=== PATIENT | female | born 1945 | race Caucasian/White ===

== ENCOUNTER 2019-03-13 17:37 | Inpatient (IN) | payer MEDICARE, OTHER, BC, SELFPAY ==
[2019-03-13 17:56] VITALS: BP 139/64; PULSE 66; RESP 14; TEMP 36.7; O2SAT 99
[2019-03-13 18:43] LABS: Abs Immature Grans 0.02 k/cumm (0.0-0.09); Absolute Basophil Count 0.03 k/cumm (0.0-0.2); Absolute Eosinophil Count 0.24 k/cumm (0.0-0.7); Absolute Lymphocyte Count 1.36 k/cumm (1.2-3.4); Absolute Monocyte Count 1.26 k/cumm (0.11-0.7); Absolute Neutrophil Count 6.94 k/cumm (1.2-6.7); Basophils % 0.3; Eosinophils % 2.4; HCT 32.4 % (36.0-46.0); HGB 10.9 g/dL (12.0-15.5); Immature Grans % 0.2; Lymphocytes % 13.8; Mean Corp. HGB Concentration 33.6 g/dL (32.0-36.0); Mean Corpuscular Hemoglobin 28.2 pg (27.0-33.0); Mean Corpuscular Volume 83.9 fL (80-95); Mean Platelet Volume 10.9 fL (8.0-11.0); Monocytes % 12.8; Neutrophils % 70.5; Platelet Count 217 x1000/uL (130-400); RBC 3.86 m/cumm (4.00-5.20); RBC Distribution Width 14.1 % (11.7-14.6); White Blood Cell Count 9.85 k/cumm (4.4-10.8)
[2019-03-13 18:50] VITALS: RESP 16
[2019-03-13 18:54] LABS: Bilirubin Negative (Negative); Blood Small (Negative); Clarity Clear (Clear); Glucose Negative (Negative); Ketones Negative (Negative); Leukocyte Esterase Negative (Negative); Nitrite Negative (Negative); Specific Gravity 1.015 (1.005-1.025); Urobilinogen 0.2 EU/dL (Up TO 0.2); pH 5.5 (5-8)
[2019-03-13] MEDS: Normal Saline 1,000 ML 150 ML IV (18:55)
[2019-03-13 19:03] LABS: Bacteria Moderate HPF (Negative); Crystals Negative HPF (Negative); Epithelial Cells Few HPF (Negative); Other Cells Negative (Negative)
[2019-03-13 19:04] LABS: C & S Indicated? Yes; Casts Negative LPF (Negative); Mucus Negative (Negative)
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
--- NOTE | 2019-03-13 19:39 | DI.CT_ITS ---
EXAM: CT HEAD WO CLINICAL HISTORY: altered mentation TECHNIQUE: The exam was performed according to the usual protocol without contrast. COMPARISON: No exams were available for comparison FINDINGS: There is an old infarct in the left parietal lobe as well as in the right occipital lobe. An addition al small area of encephalomalacia is seen in the high right frontal region. No acute infarct, acute h emorrhage or mass is seen. The ventricles are normal in size. There is no evidence of skull fracture. Hyperostosis frontalis interna is incidentally noted. The sinuses and mastoid air cells appear clear where visualized. IMPRESSION: Old left parietal, right occipital and right frontal infarcts. No acute abnormality.
[2019-03-13] MEDS: Cephalexin 500 MG CAP PO (19:43)
--- NOTE | 2019-03-13 19:54 | DI.VRAD_ITS ---
PROCEDURE INFORMATION: Exam: CT Head Without Contrast Exam date and time: 03/13/2019 6:30 PM Clinical history: 74 years old, female; Altered mental status/memory loss; Confusion or disorientation TECHNIQUE: Imaging protocol: Computed tomography of the head without contrast. Radiation optimization: All CT scans at this facility use at least one of these dose optimization techniques: automated exposure control; mA and/or kV adjustment per patient size (includes targeted exams where dose is matched to clinical indication); or iterative reconstruction. COMPARISON: No relevant prior studies available. FINDINGS: Brain: There is no acute intracranial hemorrhage, mass effect or midline shift. No large acute territorial infarct identified. There are patchy regions of hypodensity in the periventricular and subcortical white matter, likely on the basis of chronic microvascular ischemic disease. Multifocal encephalomalacia seen in the left greater than right frontoparietal lesions, left temporal and right occipital lobes, which may be secondary to remote infarcts. Ventricles: The ventricles and sulci are prominent in size, which is likely related to global cerebral volume loss. Bones/joints: Unremarkable. No acute fracture. Sinuses: Visualized sinuses are unremarkable. No fluid levels. Mastoid air cells: Visualized mastoid air cells are well aerated. Soft tissues: Unremarkable. Vasculature: There are extensive atherosclerotic calcifications at the bilateral carotid siphons. IMPRESSION: No acute intracranial hemorrhage, mass effect or midline shift. Dictated and Authenticated by: Em Cortés MD. Ordering:LISA Phillips MD
[2019-03-13 21:14] LABS: ALT 19 U/L (14-59); AST 13 U/L (15-37); Albumin 2.9 g/dL (3.4-5.0); Alkaline Phosphatase 62 U/L (46-116); Anion Gap 14.2 mmol/L (3-11); BUN 60 mg/dL (7-18); Bilirubin, Total 0.2 mg/dL (0.2-1.0); CO2 17.8 mmol/L (21.0-32.0); Calcium 8.9 mg/dL (8.5-10.1); Chloride 107 mmol/L (98-107); Estimated GFR 12.44 (mL/min/1.73m2); Glucose 112 mg/dL (70-100); Magnesium 1.6 mg/dL (1.8-2.4); Potassium 3.7 mmol/L (3.5-5.1); Sodium 139 mmol/L (136-145); TSH (W/Ref FT4) 5.04 uIU/mL (0.36-3.74); Total Protein 7.2 g/dL (6.4-8.2)
[2019-03-13 21:20] LABS: CREATININE 3.58 mg/dL (0.55-1.02)
[2019-03-13 21:36] LABS: FREE T4 1.12 ng/dL (0.76-1.46)
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
[2019-03-13 23:03] VITALS: BP 149/65; PULSE 62; O2SAT 100
[2019-03-14 00:20] VITALS: BP 159/80; PULSE 71; RESP 16; TEMP 36.4; O2SAT 97
[2019-03-14] MEDS: Normal Saline Flush 10 ML SYR IVP (00:59)
[2019-03-14] MEDS: Normal Saline 1,000 ML 150 ML IV ×2 (01:00→07:42)
[2019-03-14] MEDS: cefTRIAXone 1,000 MG in Normal Saline 50 ML 100 MG IVPB (01:00)
--- NOTE | 2019-03-14 07:00 | DI.US_ITS ---
EXAM: US RENAL CLINICAL HISTORY: CLAUDIA TECHNIQUE: Ultrasound performed using standard protocol. COMPARISON: No exams were available for comparison FINDINGS: The exam is somewhat limited by the patients inability to breath hold or cooperate with the exam. T he urinary bladder is distended with a prevoid volume of 806 cc. The patient refused to void. No bl adder mass is identified. There is bilateral moderate to severe hydronephrosis. No stones are visib le. The right kidney measures 11.6 cm in length. The left kidney measures 10.5 cm in length. IMPRESSION: Distended urinary bladder. Bilateral moderate to severe hydronephrosis.
[2019-03-14 07:29] LABS: Abs Immature Grans 0.02 k/cumm (0.0-0.09); Absolute Basophil Count 0.02 k/cumm (0.0-0.2); Absolute Eosinophil Count 0.32 k/cumm (0.0-0.7); Absolute Lymphocyte Count 1.29 k/cumm (1.2-3.4); Absolute Monocyte Count 1.32 k/cumm (0.11-0.7); Absolute Neutrophil Count 5.04 k/cumm (1.2-6.7); Basophils % 0.2; HGB 9.8 g/dL (12.0-15.5); Immature Grans % 0.2; Lymphocytes % 16.1; Mean Corp. HGB Concentration 32.7 g/dL (32.0-36.0); Mean Corpuscular Hemoglobin 27.7 pg (27.0-33.0); Mean Corpuscular Volume 84.7 fL (80-95); Mean Platelet Volume 11.4 fL (8.0-11.0); Monocytes % 16.5; Platelet Count 216 x1000/uL (130-400); RBC 3.54 m/cumm (4.00-5.20); RBC Distribution Width 14.3 % (11.7-14.6); White Blood Cell Count 8.01 k/cumm (4.4-10.8)
[2019-03-14 07:34] VITALS: BP 118/70; PULSE 59; RESP 20; TEMP 36.8; O2SAT 99
[2019-03-14 07:47] LABS: Anion Gap 14.4 mmol/L (3-11); BUN 52 mg/dL (7-18); CO2 16.6 mmol/L (21.0-32.0); CREATININE 3.41 mg/dL (0.55-1.02); Calcium 8.3 mg/dL (8.5-10.1); Chloride 109 mmol/L (98-107); Estimated GFR 13.16 (mL/min/1.73m2); Glucose 90 mg/dL (70-100); Potassium 3.7 mmol/L (3.5-5.1); Sodium 140 mmol/L (136-145)
[2019-03-14] MEDS: Levothyroxine 100 MCG TAB PO (08:30)
[2019-03-14 09:21] LABS: Magnesium 1.4 mg/dL (1.8-2.4)
[2019-03-14] MEDS: MAGNESIUM SULFATE 4 GM/100 ML BAG IVPB (10:03)
[2019-03-14 10:39] LABS: Creatine Kinase 114 U/L (26-192)
--- NOTE | 2019-03-14 12:28 | W.PM.PROGNOT ---
Date of Service Date of service: 03/14/19 Time of Service: 12:28 Assessment and Plan Assessment and plan (1) Acute kidney injury (nontraumatic): Status: Acute Assessment and plan: Vs CKD. Obtaining medical records from PCP to look at prior labs. For now, continue IVF, await US kidneys, check bladder scans. CPK ok. (2) UTI (urinary tract infection): Status: Ruled-out Assessment and plan: The patient does not have leuk. esterase or nitrites in her UA, so there does not appear to be a lower UTI - however; I would continue antibiotics until we have excluded obstructive uropathy/nephrolithiasis - US kidneys pending. Qualifiers: Urinary tract infection type: site unspecified (3) Hypothyroid: Status: Chronic Assessment and plan: It is not clear exactly how much of the synthroid the patient was taking at home. Per family, she is supposed to be 100 mcg PO daily. We will continue this dose - TSH will need to be rechecked in 4-6 weeks. Qualifiers: Hypothyroidism type: acquired Qualified Code(s): E03.9 - Hypothyroidism, unspecified (4) Dementia: Status: Chronic Assessment and plan: No unsafe behaviors observed so far. Will monitor for sundowning. Will require a capacity evaluation and guardianship, per my conversation with care management. Consult palliative care for goals of care discussion. Qualifiers: Dementia type: unspecified type Dementia behavioral disturbance: with behavioral disturbance Qualified Code(s): F03.91 - Unspecified dementia with behavioral disturbance (5) History of diabetes mellitus: Status: Chronic Assessment and plan: BG 90 on this am's labs. Check A1C. (6) DVT prophylaxis: Status: Acute Assessment and plan: SC heparin (7) Discharge planning issues: Status: Acute Assessment and plan: Family verbalizes that they are interested in subacute rehab for the patient. PT/OT consults placed. Will need capacity evaluation formally if guardianship is pursued - it is my impression that she does not have capacity to make medical or disposition decisions at this time. Palliative care consulted for goals of care discussion - listed as full code at this time. Subjective Subjective Interval history since last seen: Ms Marin knows her name, but cannot tell me where she is right now. She selectively answers questions, but not following my commands when I ask her to take a deep breath, for example. She cannot tell me if she is in pain. She is hungry. She states she wants to go home. Per family, she used to receive care at Dr Rama Mckay in [facility]. The phone number there is [phone]. Apparently, they are closed today, but would be open tomorrow. Per family, she has not seen a doctor probably in 3-5 years. She used to take metformin, but has not been - the patient's other son in [place] stopped giving her medications. It appears that perhaps her and her daughter in law in [place] were sharing a prescription for synthroid, but no one knows how much she actually took. Exam Narrative Exam Narrative: General: very frail elderly female, pleasantly confused, selectively answers questions, not able to follow simple commands, A&Ox1 HEENT: EOMI, dry MM Heart: RRR with an occasional extra beat Lungs: CTAB GI: abdomen is soft, nontender, nondistended Extremities: no e/c/c BLE's Objective Objective Clinical Data: Abnormal lab results 03/13/19 03/13/19 03/13/19 Range/Units 18:37 18:46 20:50 RBC 3.86 L (4.00-5.20) m/cumm Hgb 10.9 L (12.0-15.5) g/dL Hct 32.4 L (36.0-46.0) % MPV (8.0-11.0) fL Absolute Neutrophils 6.94 H (1.2-6.7) k/cumm Absolute Monocytes 1.26 H (0.11-0.7) k/cumm Chloride (98-107) mmol/L Carbon Dioxide 17.8 L (21.0-32.0) mmol/L Anion Gap 14.2 H (3-11) mmol/L BUN 60 H (7-18) mg/dL Creatinine 3.58 H* (0.55-1.02) mg/dL Glucose 112 H (70-100) mg/dL Calcium (8.5-10.1) mg/dL Magnesium 1.6 L (1.8-2.4) mg/dL AST 13 L (15-37) U/L Albumin 2.9 L (3.4-5.0) g/dL TSH 5.04 H (0.36-3.74) uIU/mL Urine Protein 30 H (Negative) mg/dL Urine Blood Small H (Negative) Urine RBC 5-10 H (0-2) 03/14/19 03/14/19 03/14/19 Range/Units 06:30 06:30 06:30 RBC 3.54 L (4.00-5.20) m/cumm Hgb 9.8 L (12.0-15.5) g/dL Hct 30.0 L (36.0-46.0) % MPV 11.4 H (8.0-11.0) fL Absolute Neutrophils (1.2-6.7) k/cumm Absolute Monocytes 1.32 H (0.11-0.7) k/cumm Chloride 109 H (98-107) mmol/L Carbon Dioxide 16.6 L (21.0-32.0) mmol/L Anion Gap 14.4 H (3-11) mmol/L BUN 52 H (7-18) mg/dL Creatinine 3.41 H (0.55-1.02) mg/dL Glucose (70-100) mg/dL Calcium 8.3 L (8.5-10.1) mg/dL Magnesium 1.4 L (1.8-2.4) mg/dL AST (15-37) U/L Albumin (3.4-5.0) g/dL TSH (0.36-3.74) uIU/mL Urine Protein (Negative) mg/dL Urine Blood (Negative) Urine RBC (0-2) Vital Signs Temperature 36.8 C 03/14/19 07:34 Temperature Source Tympanic 03/14/19 07:34 Pulse 59 L 03/14/19 07:34 Pulse Rhythm Irregular 03/14/19 00:20 Respiratory Rate 20 03/14/19 07:34 Respiratory Effort 03/14/19 00:20 Respiratory Depth Normal 03/14/19 00:20 Respiratory Pattern Normal 03/14/19 00:20 Blood Pressure 118/70 03/14/19 07:34 Blood Pressure Mean 93 03/13/19 23:03 Blood Pressure Position Sitting 03/13/19 17:56 Pulse Oximetry 99 03/14/19 07:34 Oxygen Delivery Method Room Air 03/14/19 07:34 Oxygen Flow Rate 0 03/14/19 07:34 Pain Level 0 03/14/19 07:34 Comment 03/14/19 07:34 Intake & Output 03/13/19 03/14/19 03/14/19 23:59 11:59 23:59 Intake Total 1000 / 1000 Output Total 10 200 / 200 Balance -10 -10 800 / 800 Weight 46.6 kg Intake: IV 1000 / 1000 Oral 0 / 0 Output: Urine 200 / 200 Other: Urine Color Yellow Yellow Urine Appearance Clear Cloudy Urine Odor Normal Comment 200CC VOID BSC AND INCONTINENT OF LARGE AMT ALSO. INCONTINENT CARE PROVIDED. Voiding Methods Bedside Commode Incontinent Laboratory Results WBC 8.01 k/cumm (4.4-10.8) 03/14/19 06:30 RBC 3.54 m/cumm (4.00-5.20) L 03/14/19 06:30 Hgb 9.8 g/dL (12.0-15.5) L 03/14/19 06:30 Hct 30.0 % (36.0-46.0) L 03/14/19 06:30 MCV 84.7 fL (80-95) 03/14/19 06:30 MCH 27.7 pg (27.0-33.0) 03/14/19 06:30 MCHC 32.7 g/dL (32.0-36.0) 03/14/19 06:30 RDW 14.3 % (11.7-14.6) 03/14/19 06:30 Plt Count 216 x1000/uL (130-400) 03/14/19 06:30 MPV 11.4 fL (8.0-11.0) H 03/14/19 06:30 Immature Gran % 0.2 03/14/19 06:30 Neutrophils % 63.0 03/14/19 06:30 Lymphocytes % 16.1 03/14/19 06:30 Monocytes % 16.5 03/14/19 06:30 Eosinophils % 4.0 03/14/19 06:30 Basophils % 0.2 03/14/19 06:30 Absolute Neutrophils 5.04 k/cumm (1.2-6.7) 03/14/19 06:30 Absolute Lymphocytes 1.29 k/cumm (1.2-3.4) 03/14/19 06:30 Absolute Monocytes 1.32 k/cumm (0.11-0.7) H 03/14/19 06:30 Absolute Eosinophils 0.32 k/cumm (0.0-0.7) 03/14/19 06:30 Absolute Basophils 0.02 k/cumm (0.0-0.2) 03/14/19 06:30 Sodium 140 mmol/L (136-145) 03/14/19 06:30 Potassium 3.7 mmol/L (3.5-5.1) 03/14/19 06:30 Chloride 109 mmol/L (98-107) H 03/14/19 06:30 Carbon Dioxide 16.6 mmol/L (21.0-32.0) L 03/14/19 06:30 Anion Gap 14.4 mmol/L (3-11) H 03/14/19 06:30 BUN 52 mg/dL (7-18) H 03/14/19 06:30 Creatinine 3.41 mg/dL (0.55-1.02) H 03/14/19 06:30 Estimated GFR/1.73 m2 13.16 (mL/min/1.73m2) 03/14/19 06:30 Glucose 90 mg/dL (70-100) 03/14/19 06:30 Calcium 8.3 mg/dL (8.5-10.1) L 03/14/19 06:30 Magnesium 1.4 mg/dL (1.8-2.4) L 03/14/19 06:30 Total Bilirubin 0.2 mg/dL (0.2-1.0) 03/13/19 20:50 AST 13 U/L (15-37) L 03/13/19 20:50 ALT 19 U/L (14-59) 03/13/19 20:50 Alkaline Phosphatase 62 U/L (46-116) 03/13/19 20:50 Creatine Kinase 114 U/L (26-192) 03/14/19 06:30 Total Protein 7.2 g/dL (6.4-8.2) 03/13/19 20:50 Albumin 2.9 g/dL (3.4-5.0) L 03/13/19 20:50 TSH 5.04 uIU/mL (0.36-3.74) H 03/13/19 20:50 Free T4 1.12 ng/dL (0.76-1.46) 03/13/19 20:50 Urine Color Yellow (Yellow) 03/13/19 18:46 Urine Clarity Clear (Clear) 03/13/19 18:46 Urine pH 5.5 (5-8) 03/13/19 18:46 Ur Specific [place] 1.015 (1.005-1.025) 03/13/19 18:46 Urine Protein 30 mg/dL (Negative) H 03/13/19 18:46 Urine Ketones Negative mg/dL (Negative) 03/13/19 18:46 Urine Blood Small (Negative) H 03/13/19 18:46 Urine Nitrite Negative (Negative) 03/13/19 18:46 Urine Bilirubin Negative (Negative) 03/13/19 18:46 Urine Urobilinogen 0.2 EU/dL (Up TO 0.2) 03/13/19 18:46 Ur Leukocyte Esterase Negative (Negative) 03/13/19 18:46 Urine RBC 5-10 (0-2) H 03/13/19 18:46 Urine WBC 10-20 HPF (0-5) 03/13/19 18:46 Ur Epithelial Cells Few HPF (Negative) 03/13/19 18:46 Urine Crystals Negative HPF (Negative) 03/13/19 18:46 Urine Bacteria Moderate HPF (Negative) 03/13/19 18:46 Urine Casts Negative LPF (Negative) 03/13/19 18:46 Urine Mucus Negative (Negative) 03/13/19 18:46 Urine Other Negative (Negative) 03/13/19 18:46 Ur Culture Indicated? Yes 03/13/19 18:46 Urine Glucose Negative mg/dL (Negative) 03/13/19 18:46 US renal done; read pending
[2019-03-14 13:12] LABS: Hemoglobin A1C 5.6 % (4.5-6.2)
--- NOTE | 2019-03-14 15:27 | PT.INNT ---
Date of service: 03/14/19 Time of Service: 15:04 PT Notes Patient is a 74-year-old female referred to physical therapy on 03/14/2019 at 12:36 PM for limited ability. JOHN/smiley JOSEPH was present in the room when this PT arrived. An evaluation was attempted. Patient was unable to follow simple commands and was responding inappropriately to questions. She repetitively replied I am fine, thank you to all the questions asked of her. To attempt a quick mobility assessment, a strategy of having patient transfer to the wheelchair so that her bed can be fixed was done. Patent was unrelenting despite several tries, stating that she is so tired and again added I am fine, thank you. Another evaluation will be attempted tomorrow morning as patient hopefully will clear up more. Thank you very much for this referral. Catia Copeland PT, DPT, CLT [facility]
[2019-03-14 15:48] VITALS: BP 146/57; PULSE 54; RESP 17; TEMP 36.8; O2SAT 100
--- NOTE | 2019-03-14 17:58 | INITIAL_ITS ---
- If Service Date Differs Date of service: 03/14/19 Time of Service: 17:58 Care Management Initial Assess REASON FOR HOSPITALIZATION:: dementia PAST MEDICAL HISTORY/PAST SURGICAL HISTORY:: Medical History (Updated 03/14/19 @ 07:53 by Nj Daniels). Dementia (Suspected). History of colon cancer (Acute). s/p partial colectomy and reversal of colostomy; no chemotherapy. Hypothyroid (Chronic). Surgical History (Updated 03/13/19 @ 22:30 by Nj marroquin). H/O colectomy (Resolved) PREVIOUS FUNCTIONAL STATUS/SOCIAL/FAMILY SUPPORTS:: Meghan previously lived with a son in [place]. Due to family issues, she is no longer able to remain there in her home. Another son, Param, brought her back to [place]. Meghan needs constant supervision which the family cannot provide, so she was brought to the hospital. Physically she is able to ambulate and feed herself but needs direction.They are seeking palcement in a [facility] continuous [facility] care facility. CURRENT FUNCTIONAL STATUS:: Meghan was sitting on the side of her bed eating lunch during CM visit. She was non-verbal while CM visited with her son Param and his Vy. They shared that they are unable to care for her since they both work. She owns a home in [place] and receives Social Security but they are unsure if she has additional funds. Her only insurance is Medicare. Has patient been provided with information about the portal?: No Did the patient sign up for the portal?: No CODE STATUS:: Full Code INSURANCE COVERAGE / FINANCIAL ISSUES:: Medicare. BC BS PRIMARY CARE PHYSICIAN:: none POTENTIAL DISCHARGE NEEDS:: [facility] term placement or 24/7 caregivers PATIENT/FAMILY EDUCATION NEEDS:: discharge plan, limitations Ask Me Three ANTICIPATED BARRIERS TO DISCHARGE:: no payer source for placement TRANSPORTATION:: to be determined by discharge plan PLAN:: Meghan will likely need [facility] continuous [facility] placement or 24/7 caregivers. Final discharge plan to be determined. CM will continue to support patient, family and discharge planning considerations.
[2019-03-14 20:15] VITALS: BP 130/68; PULSE 74; RESP 17; TEMP 36.8; O2SAT 100
[2019-03-15] VITALS: BP 120/63; PULSE 76; RESP 16; TEMP 37.7; O2SAT 99
[2019-03-15 04:05] VITALS: BP 118/63; PULSE 72; RESP 17; TEMP 36.8; O2SAT 99
[2019-03-15] MEDS: Normal Saline 1,000 ML 100 ML IV ×2 (04:51→14:15)
[2019-03-15] MEDS: Levothyroxine 100 MCG TAB PO (06:29)
[2019-03-15 06:58] LABS: Abs Immature Grans 0.01 k/cumm (0.0-0.09); Absolute Basophil Count 0.03 k/cumm (0.0-0.2); Absolute Eosinophil Count 0.38 k/cumm (0.0-0.7); Absolute Lymphocyte Count 1.17 k/cumm (1.2-3.4); Absolute Monocyte Count 0.82 k/cumm (0.11-0.7); Absolute Neutrophil Count 3.89 k/cumm (1.2-6.7); Basophils % 0.5; HCT 26.6 % (36.0-46.0); HGB 8.6 g/dL (12.0-15.5); Immature Grans % 0.2; Lymphocytes % 18.6; Mean Corp. HGB Concentration 32.3 g/dL (32.0-36.0); Mean Corpuscular Hemoglobin 27.5 pg (27.0-33.0); Mean Platelet Volume 10.9 fL (8.0-11.0); Neutrophils % 61.7; Platelet Count 196 x1000/uL (130-400); RBC 3.13 m/cumm (4.00-5.20); RBC Distribution Width 14.2 % (11.7-14.6)
[2019-03-15 07:21] LABS: Anion Gap 12.7 mmol/L (3-11); BUN 49 mg/dL (7-18); CO2 15.3 mmol/L (21.0-32.0); CREATININE 3.01 mg/dL (0.55-1.02); Calcium 7.8 mg/dL (8.5-10.1); Chloride 111 mmol/L (98-107); Ferritin 77 ng/mL (8-388); Glucose 98 mg/dL (70-100); Magnesium 2.2 mg/dL (1.8-2.4); Potassium 3.8 mmol/L (3.5-5.1); Sodium 139 mmol/L (136-145)
[2019-03-15 07:27] LABS: Iron 29 ug/dL (50-175); Total Iron Binding Capacity 181 ug/dL (250-450); Transferrin Sat 16 % (15-50)
[2019-03-15 07:31] LABS: Diff Comment RBC Morph Reviewed; RBC Morphology Normal
[2019-03-15 07:54] LABS: Folate 3.2 ng/mL (8.6-20.0); Vitamin B12 258 pg/mL (193-986)
[2019-03-15 08:00] VITALS: BP 107/63; PULSE 73; RESP 18; TEMP 37.2; O2SAT 96
--- NOTE | 2019-03-15 08:15 | PHARADMIT ---
Admission Pharmacy Clinical Review UTI, Acute Kidney Injury Code Status Full Code Current Weight Wgt-45.7 kg Renally Cleared and Narrow Therapeutic Index Meds CrCl~11.8 mL/min Meds-OK QTc Value / Action Taken NA BP Control, Fever BP- 118/63 Tmax- 36.8C Electrolytes reviewed Na-139 K+3.8 Mag-2.2 DVT Prophylaxis Heparin-SC Opiate Usage / Scheduled Bowel Regimen Ordered No Yes Plt/SCr for Heparin / Enoxaparin Plts-196 SCr-3.01 INR for Warfarin NA H/H stable, WBC/Bands H&H- 8.6/26.6 WBC-6.30 Antibiotic appropriateness NONE Cultures and Sensitivities URINE-ENTEROCOCCUS Surgical ABX d/c within 24 hr NA DM control / Insulin Dosing BG-98 NnL7w-0.6% Heart Failure (Check EF%) (ANA's, B-Block, Diuretics) none IV to PO Switch No Home Meds Reviewed Yes Home Meds Not Ordered Loperamide Comments
--- NOTE | 2019-03-15 09:42 | NUR.NOTE ---
Nursing Note: Coban wrapped around IV site in Left AC. Pt's left hand and wrist is significantly swollen. Coban removed, site wrapped loosely w/gauze to prevent Pt from pulling out IV. will continue to monitor.
[2019-03-15 11:15] VITALS: BP 106/55; PULSE 70; RESP 20; TEMP 37; O2SAT 99
[2019-03-15] MEDS: Folic Acid 1 MG TAB PO (11:56)
--- NOTE | 2019-03-15 12:29 | PT.INIE ---
Date of service: 03/15/19 Time of Service: 10:39 PT Notes Physical Therapy Inpatient Evaluation Date: 03/15/2019 Referring Doctor: Jamaica Rolon MD PT Orders: PT CONSULT: Limited ability Precautions: Fall. Standard. Activity as tolerated. Patient Profile/Admitting Diagnosis: Patient is a 74-year old female referred for physical therapy for limited ability. Patient is diagnosed with dementia, urinary tract infection, and acute kidney injury. PMHX: Medical History (Updated 03/14/19 @ 07:53 by Nj Daniels) Dementia (Suspected) History of colon cancer (Acute) s/p partial colectomy and reversal of colostomy; no chemotherapy Hypothyroid (Chronic) Surgical History (Updated 03/13/19 @ 22:30 by Nj Daniels) H/O colectomy (Resolved) Social History/Home Situation: Unable to extract any information from patient due to dementia. Equipment Owned/DME: Unable to extract any information from patient due to dementia. Subjective: I am fine, thank you. I am tired, I want to rest. Refuses to wear slipper socks despite attempts at trying out all the different colors. Objective: General Observation: Patient sitter 10 present during this attempt and evaluation. Patient is unable to follow simple instructions PT. Significantly confused. Perseverated on mismatched socks throughout evalaution attempt. Mental Status: Alert but is not oriented to time, place, person, purpose. States that she does not know if she has kids when asked about it. She does answer when her name is called. Pain: No verbal/bodily expression of pain troughout evalaution attempt. ROM: Unable to formally assess. Grossly WFL. Strength: Unable to formally assess. Grossly WFL. Bed Mobility/Transfers: Rolling minimal assist Supine to sit minimal assist Sit to supine minimal assist Sit to stand minimal assist Stand to sit minimal assist Bed to chair minimal assist Chair to bed minimal assist Gait: Patient only tolerated two small steps and two step backs to transfer from bedside to chair with maximum verbal cueing and reassuarance that she will be put back to bed as soon as soiled sheets are changed. Balance: Static Sitting: Good Dynamic Sitting: Good Static Standing: Fair Dynamic Standing: Fair Special Tests: Mobility Limitations Standardized Measure [facility]-P[facility] 6 clicks Basic Mobility Inpatient Short Form: Raw Score: 18 CMS Score: 47% deficit Informed Consent/Education: Unable to understand rationale for PT consult and treatment. Assessment: Patient is a 74-year old female referred for physical therapy for limited ability. Patient is diagnosed with dementia, urinary tract infection, and acute kidney injury. Patient is not able to to follow simple instructions and is not motivated to do anything at this time. She is most content at lying down on her bed as she persistently indicated that she has been so tired. Patient is not appropriate for skilled physical therapy services at this time and will require 24/7 supervision for safety or will strongly benefit from long-term placement in a usp facility. Patient presents with clinical signs and symptoms consistent with current/admitting diagnoses that have resulted to mobility limitations, gait instability, generalized weakness, and impairment of motor control as demonstrated by the following impairment level findings: 1. Significant confusion due to dementia 2.Impaired sitting/standing balance 3. Impaired activity tolerance Impairments are contributing to the following functional limitations: 1. Dependent bed mobility skills 2. Increased dependence with transfers 3. Inability to safely ambulate without assistive device and physical assistance 4. Increase completion time for mobility ADL performance 5. Increased fall risk Patient is assessed as a 26773 moderate complexity based on the following: History: Patient is a 74-year old female referred for physical therapy for limited ability. Patient is diagnosed with dementia, urinary tract infection, and acute kidney injury. Examination: Demonstrable impairment in strength, balance, and range of motion with underlying impairments and functional limitations as documented above Presentation:Evolving Decision Makin moderate complexity Goals: N/A. Patient is evaluation only. Plan of Care/Treatment Plan: N/A. Patient is evaluation only. DISCHARGE RECOMMENDATIONS: 24/7 supervision or SNF LTC placement. TREATMENT CODE/TIME: 58890 x 26 minutes beginning at 10:39 AM. Thank you very much for this referral. Catia Copeland PT, DPT, CLT [facility]
--- NOTE | 2019-03-15 15:18 | PDOC.CMPRO ---
Care Management Progress Note S/O: Meghan was sitting up in her recliner. Currently on Contact precautions while awaiting results from C-Diff test. Confused and frequently bursting into tears. Has a 1:1 Patient Observer with her at all times. Son, Param, came in to visit. Rama Escobedo is headed to [place] to turkey picker some things from Meghan's home. Confirmed that the daily care needed by Meghan is more than they can provide at home. Requesting assistance with Custodial placement. Contacted the daughter, Meghan Adams ([phone]), who is the DPOA and handles all of her mother's finances. She emailed a copy of the documents which have been sent to medical records to be scanned. She brandon only been relocated to [place] for a month. Will need to apply for extermination inspector medicaid. Meghan Adams said she would start to gather her mother's financial information and have it ready when applications need to be completed. Son, Gael, remains in the [place] home which is still owned by Meghan. A: 74 y.o. female admitted for UTI, CLAUDIA remains at an acute level of care today. P: Meghan will need placement of some type as she cannot be managed at Param's home. Family will rquire assistance with al of the necessary forms.
[2019-03-15 15:30] VITALS: BP 122/68; PULSE 69; RESP 18; TEMP 36.8; O2SAT 99
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
[2019-03-15] MEDS: Nystatin POWDER 15 GM JAR TP (19:26)
[2019-03-15] MEDS: Docusate Sodium 100 MG CAP PO (19:26)
[2019-03-15] MEDS: Senna TAB 1 TAB PO (19:26)
[2019-03-15 19:30] VITALS: BP 153/73; PULSE 72; RESP 18; TEMP 36.7; O2SAT 100
[2019-03-16] MEDS: Normal Saline 1,000 ML 100 ML IV (00:40)
[2019-03-16] MEDS: Levothyroxine 100 MCG TAB PO (06:10)
[2019-03-16 07:46] LABS: Abs Immature Grans 0.02 k/cumm (0.0-0.09); Absolute Basophil Count 0.02 k/cumm (0.0-0.2); Absolute Eosinophil Count 0.32 k/cumm (0.0-0.7); Absolute Lymphocyte Count 1.26 k/cumm (1.2-3.4); Absolute Monocyte Count 0.86 k/cumm (0.11-0.7); Absolute Neutrophil Count 3.11 k/cumm (1.2-6.7); Basophils % 0.4; Eosinophils % 5.7; Immature Grans % 0.4; Lymphocytes % 22.5; Mean Corp. HGB Concentration 32.8 g/dL (32.0-36.0); Mean Corpuscular Hemoglobin 27.8 pg (27.0-33.0); Mean Corpuscular Volume 84.8 fL (80-95); Mean Platelet Volume 11.2 fL (8.0-11.0); Monocytes % 15.4; Neutrophils % 55.6; Platelet Count 182 x1000/uL (130-400); RBC 3.42 m/cumm (4.00-5.20); RBC Distribution Width 14.2 % (11.7-14.6); White Blood Cell Count 5.59 k/cumm (4.4-10.8)
[2019-03-16 07:51] LABS: HGB 9.5 g/dL (12.0-15.5)
[2019-03-16 07:52] LABS: Anion Gap 12.4 mmol/L (3-11); BUN 42 mg/dL (7-18); CO2 15.6 mmol/L (21.0-32.0); CREATININE 2.72 mg/dL (0.55-1.02); Chloride 113 mmol/L (98-107); Estimated GFR 17.08 (mL/min/1.73m2); Glucose 127 mg/dL (70-100); Magnesium 1.7 mg/dL (1.8-2.4); Potassium 4.1 mmol/L (3.5-5.1); Sodium 141 mmol/L (136-145)
[2019-03-16 08:31] VITALS: BP 154/72; PULSE 69; RESP 18; TEMP 36.1; O2SAT 98
[2019-03-16] MEDS: Folic Acid 1 MG TAB PO (10:43)
[2019-03-16] MEDS: Aspirin 81 MG CHEW PO (10:43)
[2019-03-16] MEDS: Pantoprazole 40 MG TABCR PO (10:43)
[2019-03-16] MEDS: Nystatin POWDER 15 GM JAR TP ×2 (10:43→19:40)
[2019-03-16] MEDS: Magnesium Oxide 400 MG TAB 800 MG PO (10:43)
[2019-03-16 12:10] VITALS: BP 144/70; PULSE 75; RESP 16; TEMP 36.5; O2SAT 100
[2019-03-16] MEDS: Normal Saline 1,000 ML 75 ML IV (12:19)
[2019-03-16 16:14] VITALS: BP 146/69; PULSE 73; RESP 18; TEMP 36.6; O2SAT 100
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
--- NOTE | 2019-03-16 18:32 | CMPROGNOTE_ITS ---
Care Management Progress Note S/O: Meghan was sitting up in her recliner eating her dinner. No longer on Contact precautions. C-Diff test was Negative. Confused but was not as tearful today, Has a 1:1 Patient Observer with her at all times. Son, Param, came in to visit. Meghan's daily care needs are greater than what can be provided at Param's home. Requesting assistance with Machine Assembler Supervisor placement. Daughter, Meghan Adams ([phone]), is the DPOA and handles all of her mother's finances is aware of the situation and ready to assist with information needed as we start to fill out applications. Will need to apply for [place] [facility] medicaid. A: 74 y.o. female admitted for UTI, CLAUDIA remains at an acute level of care today. P: Meghan will need placement of some type as she cannot be managed at Param's home. Family will require assistance with all of the necessary forms to apply for medicaid and seek LTC placement and/or other resource options.
[2019-03-16] MEDS: Atorvastatin 40 MG TAB PO (19:40)
[2019-03-16] MEDS: Loperamide 2 MG CAP PO (19:40)
[2019-03-16 20:07] VITALS: BP 164/63; PULSE 63; RESP 18; TEMP 36.4; O2SAT 100
[2019-03-16] MEDS: QUEtiapine 25 MG TAB PO (20:15)
[2019-03-17 06:00] VITALS: BP 154/70; PULSE 65; RESP 16; TEMP 36.6; O2SAT 99
[2019-03-17] MEDS: Levothyroxine 100 MCG TAB PO (06:17)
[2019-03-17 07:15] VITALS: BP 147/68; PULSE 63; RESP 17; TEMP 36.6; O2SAT 97
[2019-03-17 07:32] LABS: Abs Immature Grans 0.02 k/cumm (0.0-0.09); Absolute Basophil Count 0.03 k/cumm (0.0-0.2); Absolute Monocyte Count 0.79 k/cumm (0.11-0.7); Absolute Neutrophil Count 2.29 k/cumm (1.2-6.7); Basophils % 0.6; Eosinophils % 5.6; HCT 30.6 % (36.0-46.0); HGB 9.8 g/dL (12.0-15.5); Immature Grans % 0.4; Lymphocytes % 35.6; Mean Corpuscular Hemoglobin 27.5 pg (27.0-33.0); Mean Platelet Volume 10.9 fL (8.0-11.0); Monocytes % 14.8; Platelet Count 231 x1000/uL (130-400); RBC 3.56 m/cumm (4.00-5.20); RBC Distribution Width 14.6 % (11.7-14.6); White Blood Cell Count 5.33 k/cumm (4.4-10.8)
[2019-03-17 07:55] LABS: BUN 36 mg/dL (7-18); CREATININE 2.54 mg/dL (0.55-1.02); Calcium 8.4 mg/dL (8.5-10.1); Chloride 115 mmol/L (98-107); Estimated GFR 18.48 (mL/min/1.73m2); Glucose 99 mg/dL (70-100); Magnesium 1.6 mg/dL (1.8-2.4); Potassium 4.4 mmol/L (3.5-5.1); Sodium 144 mmol/L (136-145)
--- NOTE | 2019-03-17 08:53 | OTIE_ITS ---
Occupational Therapy Notes Inpatient Occupational Therapy Evaluation Date: 03/17/19 Referring Doctor:Jamaica Rolon MD OT Orders: Non-urgent: Limited Ability Precautions: Fall, Standard PATIENT PROFILE/ADMITTING DIAGNOSIS: Pt is a 74 year old female who was admitted through the ER on 03/13/19 for a dx of CLAUDIA, dehydration, UTI and dementia. Past Medical History: Medical History (Updated 03/14/19 @ 07:53 by Nj Daniels) Dementia (Suspected) History of colon cancer (Acute) s/p partial colectomy and reversal of colostomy; no chemotherapy Hypothyroid (Chronic) Surgical History (Updated 03/13/19 @ 22:30 by Nj Daniels) H/O colectomy (Resolved) Social History/Home Situation: Pt is unable to speak to her current living situation. Equipment owned/DME: Unable to assess as pt is unable to speak to this. SUBJECTIVE: Pt was sitting on side of the bed when OT arrived eating her breakfast. She reports multiple times throughout session I'm fine. OBJECTIVE: General Observation: Ramsay, pt is very confused and unable to answer with more than 5 word sentences. She is alert and can make eye contact. Mental Status: Alert to name Pain: no c/o pain ROM: RUE AROM limited to 75* although it is unclear as to whether pt can achieve more because she denies. Elbow, wrist and hands WNL L UE AROM limited to 80* although it is unclear as to whether pt can achieve more because she denies. Elbow, wrist and hands WNL STRENGTH: RUE Ring Rolling Machine Operator strength is weak-pt is unable to adequately test other areas of strength LUE Ring Rolling Machine Operator strength is weak, bicep 2+/5, tricep 3/5, unable to assess shoulder flexion *Pt is (R) hand dominant. FUNCTIONAL MOBILITY/ADLS: BATHING Sitting on side of the bed with max (A) set and max vc Bathing UE (I) with face and hands Bathing LE able to wash top of feet however it is with gentle touch and pt states she is all set. DRESSING - Pt becomes angry when presented with socks and refers to her socks as trash and ugly. This is clearly upsetting to pt and she becomes angry and states I'm fine get out. GROOMING Pt denies TOILETING Pt denies EATING (I) sitting on side of bed BALANCE: Static sitting Normal Dynamic Sitting Normal SPECIAL TESTS: Daily Activity Limitations Standardized Measure [facility] AM -PAC ?6 clicks? Daily Activity Inpatient Short Form: Raw score: 8 Standardized score: 22.86 CMS score: 85.69% INFORMED CONSENT/EDUCATION: Pt instructed in purpose of OT Consult and plan of care. ASSESSMENT: Patient is a 74-year-old female referred to occupational therapy services with diagnosis of CLAUDIA, dehydration, UTI and dementia. Patient presents with clinical signs and symptoms consistent with dx, as demonstrated by the following impairment level findings: Decreased mental status, decreased gross an d fine motor control of (B) UE, decreased functional mobility, inability to perform more than 2 step by step demands, decreased ability to cross midline, decreased strength in (B) UE. Impairments are contributing to the following functional limitations: Inability to perform LE dressing and bathing, decreased performance of (B) UE ADLs/IADLs, Inability to perform ADLs safely without (A), inability to return to current living situation, decreased mental status. AMPAC score 8 Patient is assessed as a high 86397 complexity based on the following: History: See Above Examination: See functional limitations as noted above Presentation: Evolving Decision Making: AMPAC score 8 GOALS N/A PLAN OF CARE/TREATMENT PLAN: OT consult only. DISCHARGE RECOMMENDATIONS OT recommends that pt go to LTC due to her mental status and decreased ability to care for herself and perform ADLs with increased (I) and decreased safety awareness. TREATMENT TIME/MINUTES/CODES 46011, [id number], 40 minutes (08:15) RIVKA Altamirano[facility]
[2019-03-17] MEDS: Pantoprazole 40 MG TABCR PO (09:08)
[2019-03-17] MEDS: Aspirin 81 MG CHEW PO (09:08)
[2019-03-17] MEDS: Folic Acid 1 MG TAB PO (09:09)
[2019-03-17] MEDS: Loperamide 2 MG CAP PO ×2 (09:09→20:09)
[2019-03-17] MEDS: Nystatin POWDER 15 GM JAR TP ×2 (09:09→20:10)
--- NOTE | 2019-03-17 11:11 | PDOC.CMPRO ---
Care Management Progress Note S/O: Meghan continues to be closely monitored at this time. Her one on one patient observer remains in place. Her family came to visit, NEMO provided LT Medicaid application and will meet with Rama Escobedo to complete tomorrow at 1000. Meghan will participate in Palliative Care consult with her Param, Rama Escobedo and Dr. Vivar this evening. CM met with the family in Meghan's room. The wishes of the family are for Meghan to have a short rehab stay at [facility] prior to returning home with increased services. CM continues to follow. A: 74 y.o. female admitted to [facility] 03/13/19 for UTI, CLAUDIA P: The wishes of the family are for Meghan to have a short rehab stay at [facility] prior to returning home with increased services. NEMO is assisting with Billing Machine Operator Medicaid application. Her daughter, Meghan Adams ([phone]) resides in [facility], is the DPOA and handles all of her mother's finances is engaged in the process as well. Anticipate Meghan will have short term rehab stay at [facility], family would like Meghan to have caregivers at home with option of going to [facility] during the day after returning home.
[2019-03-17] MEDS: MAGNESIUM SULFATE 2 GM/50 ML BAG IVPB (11:29)
[2019-03-17 11:40] VITALS: BP 146/72; PULSE 63; RESP 17; TEMP 36.9; O2SAT 99
[2019-03-17] MEDS: Normal Saline Flush 10 ML SYR IVP (14:03)
--- NOTE | 2019-03-17 14:08 | CHAPLAIN ---
Meghan was sitting at the edge of the bed when I visited. She was visiting with a cadre who was one on one with. I give Meghan a prayer blanket, but she wasn't sure what to do with it and I assured her it was for her to keep. I introduced myself, explained my role and offered support.
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
[2019-03-17 19:43] VITALS: BP 152/81; PULSE 80; RESP 19; TEMP 36.7; O2SAT 98
[2019-03-17] MEDS: Atorvastatin 40 MG TAB PO (20:09)
[2019-03-17] MEDS: Psyllium PKT 1 EACH PO (20:10)
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
[2019-03-17] MEDS: QUEtiapine 25 MG TAB 12.5 MG PO (22:17)
[2019-03-18] MEDS: Levothyroxine 100 MCG TAB PO (06:46)
[2019-03-18 06:54] VITALS: BP 134/65; PULSE 79; RESP 14; TEMP 36.6; O2SAT 98
[2019-03-18 07:03] LABS: Abs Immature Grans 0.03 k/cumm (0.0-0.09); Absolute Basophil Count 0.04 k/cumm (0.0-0.2); Absolute Eosinophil Count 0.41 k/cumm (0.0-0.7); Absolute Lymphocyte Count 1.59 k/cumm (1.2-3.4); Absolute Monocyte Count 0.93 k/cumm (0.11-0.7); Absolute Neutrophil Count 3.74 k/cumm (1.2-6.7); Basophils % 0.6; Eosinophils % 6.1; HGB 9.3 g/dL (12.0-15.5); Immature Grans % 0.4; Lymphocytes % 23.6; Mean Corp. HGB Concentration 32.1 g/dL (32.0-36.0); Mean Corpuscular Hemoglobin 27.6 pg (27.0-33.0); Mean Corpuscular Volume 86.1 fL (80-95); Mean Platelet Volume 10.5 fL (8.0-11.0); Monocytes % 13.8; Neutrophils % 55.5; Platelet Count 237 x1000/uL (130-400); RBC 3.37 m/cumm (4.00-5.20); RBC Distribution Width 14.5 % (11.7-14.6); White Blood Cell Count 6.74 k/cumm (4.4-10.8)
[2019-03-18 07:24] LABS: Anion Gap 10.4 mmol/L (3-11); BUN 32 mg/dL (7-18); CO2 19.6 mmol/L (21.0-32.0); CREATININE 2.43 mg/dL (0.55-1.02); Calcium 8.3 mg/dL (8.5-10.1); Chloride 113 mmol/L (98-107); Estimated GFR 19.45 (mL/min/1.73m2); Glucose 93 mg/dL (70-100); Magnesium 1.8 mg/dL (1.8-2.4); Sodium 143 mmol/L (136-145)
--- NOTE | 2019-03-18 07:47 | W.NUTCONSULT ---
Date of service: 03/18/19 Time of Service: 07:48 Nutritional Consult ASSESSMENT: Appreciate nutrition consult for Meghan Marin who is hospitalized with CKD and signs of dementia for this 74 year old female. She also has anemia with low folic acid level. Weight at admission 46.6kg 03/13 now 49.6kg with BMI 20 Estimated energy needs based on sedentary lifestyle: 1150 kcal and 60grams protein Currently eating 25-100% of meals with the addition of 1 glucerna with each meal. She drinks cranberry juice with gingerale between meals. Appears to have adequate calorie and protein intake with current intervention. RN states she is having high stool output soon after eating her meal. NUTRITIONAL DIAGNOSIS: Inadequate caloric intake prior to admission as evidenced by BMI 19 at admission INTERVENTION: Estimated caloric intake with Glucerna 660 calories; 30 grams protein; 12 grams fiber. In addition, she is offered a standard diet of ~1800 calories which she is eating well per RN. Appears currently well nourished with rapid weight gain which may be partially fluid balance correction. If high stool output, suggest decreasing sweet beverages between meals. MONITORING AND EVALUATION: Will follow PO intake; weight change; hydration. Time Spent in Nutritional Counseling and Treatment: 0 face to face
[2019-03-18 08:07] VITALS: BP 127/54; PULSE 72; RESP 16; TEMP 37.2; O2SAT 98
[2019-03-18] MEDS: Loperamide 2 MG CAP PO ×2 (08:09→23:05)
[2019-03-18] MEDS: Pantoprazole 40 MG TABCR PO (08:09)
[2019-03-18] MEDS: Aspirin 81 MG CHEW PO (08:09)
[2019-03-18] MEDS: Folic Acid 1 MG TAB PO (08:09)
[2019-03-18] MEDS: Psyllium PKT 1 EACH PO (08:09)
--- NOTE | 2019-03-18 09:40 | CMPROGNOTE_ITS ---
Care Management Progress Note S/O: Meghan continues to be closely monitored at this time. NEMO met with the family in Meghan's room, to complete LTC Medicaid application. Meghan, her [id number] provided financial information over the phone and via email. The wishes of the family are for Meghan to have a short rehab stay at [facility] prior to a bleach packer stay, which is a shift from yesterday. NEMO continues to work closely with Mckenna at [facility] and awaits bed determination. CM continues to follow. A: 74 y.o. female admitted to [facility] 03/13/19 for UTI, CLAUDIA P: The wishes of the family are for Meghan to have a short rehab stay at [facility] prior to returning home with increased services. NEMO is assisting with [facility] Medicaid application. Her daughter, Meghan Adams ([phone]) resides in [facility], is the DPOA and handles all of her mother's finances is engaged in the process as well. Anticipate Meghan will have short term rehab stay at [facility], prior to bleach packer care coordination.
--- NOTE | 2019-03-18 09:40 | PDOC.CMPRO ---
Care Management Progress Note S/O: Meghan continues to be closely monitored at this time. NEMO met with the family in Meghan's room, to complete LTC Medicaid application. Meghan, her wbfzhdsg-cb-glo provided financial information over the phone and via email. The wishes of the family are for Meghan to have a short rehab stay at [facility] prior to a parts counterman stay, which is a shift from yesterday. NEMO continues to work closely with Mckenna at [facility] and awaits bed determination. CM continues to follow. A: 74 y.o. female admitted to [facility] 03/13/19 for UTI, CLAUDIA P: The wishes of the family are for Meghan to have a short rehab stay at [facility] prior to returning home with increased services. NEMO is assisting with Cust[employer] Medicaid application. Her daughter, Meghan Adams ([phone]) resides in [facility], is the DPOA and handles all of her mother's finances is engaged in the process as well. Anticipate Meghan will have short term rehab stay at [facility], prior to parts counterman care coordination.
[2019-03-18] MEDS: Magnesium Oxide 400 MG TAB PO (10:21)
[2019-03-18] MEDS: Nystatin POWDER 15 GM JAR TP ×2 (11:03→23:06)
[2019-03-18 16:04] VITALS: BP 120/63; PULSE 76; RESP 16; TEMP 37.5; O2SAT 97
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
[2019-03-18 19:31] VITALS: BP 138/66; PULSE 83; RESP 17; TEMP 37.3; O2SAT 99
[2019-03-18] MEDS: Atorvastatin 40 MG TAB PO (23:06)
[2019-03-18] MEDS: QUEtiapine 25 MG TAB 12.5 MG PO (23:06)
[2019-03-18 23:15] VITALS: BP 124/67; PULSE 89; RESP 16; TEMP 36.9; O2SAT 100
[2019-03-19] MEDS: Levothyroxine 100 MCG TAB PO (07:07)
[2019-03-19 07:21] LABS: Abs Immature Grans 0.03 k/cumm (0.0-0.09); Absolute Basophil Count 0.03 k/cumm (0.0-0.2); Absolute Eosinophil Count 0.34 k/cumm (0.0-0.7); Absolute Lymphocyte Count 1.73 k/cumm (1.2-3.4); Absolute Monocyte Count 0.89 k/cumm (0.11-0.7); Absolute Neutrophil Count 3.87 k/cumm (1.2-6.7); Basophils % 0.4; Eosinophils % 4.9; HCT 26.9 % (36.0-46.0); HGB 8.5 g/dL (12.0-15.5); Immature Grans % 0.4; Lymphocytes % 25.1; Mean Corp. HGB Concentration 31.6 g/dL (32.0-36.0); Mean Corpuscular Hemoglobin 27.6 pg (27.0-33.0); Mean Corpuscular Volume 87.3 fL (80-95); Mean Platelet Volume 10.9 fL (8.0-11.0); Monocytes % 12.9; Neutrophils % 56.3; Platelet Count 243 x1000/uL (130-400); RBC 3.08 m/cumm (4.00-5.20); RBC Distribution Width 14.6 % (11.7-14.6); White Blood Cell Count 6.89 k/cumm (4.4-10.8)
[2019-03-19 07:31] LABS: Anion Gap 12.5 mmol/L (3-11); BUN 33 mg/dL (7-18); CO2 19.5 mmol/L (21.0-32.0); CREATININE 2.81 mg/dL (0.55-1.02); Calcium 8.5 mg/dL (8.5-10.1); Chloride 112 mmol/L (98-107); Estimated GFR 16.45 (mL/min/1.73m2); Glucose 90 mg/dL (70-100); Magnesium 1.6 mg/dL (1.8-2.4); Potassium 4.5 mmol/L (3.5-5.1); Sodium 144 mmol/L (136-145)
[2019-03-19 07:57] LABS: Diff Comment RBC Morph Reviewed
[2019-03-19 07:58] LABS: Anisocytosis 1+
[2019-03-19 07:59] LABS: Polychromasia Present
[2019-03-19 08:00] LABS: Poikilocytes 1+
[2019-03-19] MEDS: Ferrous Sulfate 325 MG TAB PO (08:57)
[2019-03-19] MEDS: Loperamide 2 MG CAP PO ×2 (08:57→19:36)
[2019-03-19] MEDS: Aspirin 81 MG CHEW PO (08:57)
[2019-03-19] MEDS: Pantoprazole 40 MG TABCR PO (08:57)
[2019-03-19] MEDS: Ascorbic Acid 500 MG TAB PO (08:57)
[2019-03-19] MEDS: Folic Acid 1 MG TAB PO (08:57)
[2019-03-19] MEDS: Psyllium PKT 1 EACH PO ×2 (08:58→19:36)
[2019-03-19] MEDS: Nystatin POWDER 15 GM JAR TP ×2 (08:58→19:41)
[2019-03-19 08:59] VITALS: BP 121/80; PULSE 94; RESP 17; TEMP 36.6; O2SAT 97
[2019-03-19] MEDS: Normal Saline 1,000 ML 125 ML IV (08:59)
[2019-03-19 10:24] LABS: Bilirubin Negative (Negative); Blood Moderate (Negative); Clarity Clear (Clear); Glucose Negative (Negative); Ketones Negative (Negative); Leukocyte Esterase Small (Negative); Nitrite Negative (Negative); Specific Gravity >= 1.030 (1.005-1.025); Urobilinogen 0.2 EU/dL (Up TO 0.2)
[2019-03-19] MEDS: MAGNESIUM SULFATE 2 GM/50 ML BAG IVPB (10:41)
[2019-03-19 10:44] LABS: Bacteria Rare HPF (Negative); Epithelial Cells Few HPF (Negative); WBC >50 HPF (0-5)
[2019-03-19 10:45] LABS: C & S Indicated? Yes; Casts Negative LPF (Negative); Crystals Negative HPF (Negative); Mucus Negative (Negative)
[2019-03-19 11:22] VITALS: BP 138/69; PULSE 67; RESP 17; TEMP 36.5; O2SAT 99
[2019-03-19] MEDS: Fosfomycin Tromethamine 3 GM PACKET PO (12:24)
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
--- NOTE | 2019-03-19 15:00 | DI.US_ITS ---
EXAM: US PELVIS CLINICAL HISTORY: Vaginal bleeding. H/o uterine cancer TECHNIQUE: Ultrasound performed using standard protocol. COMPARISON: No priors for comparison. FINDINGS: Status post hysterectomy. The ovaries were not visualized. No adnexal mass is present. No free pel watson fluid is identified. IMPRESSION: Status post hysterectomy. Nonvisualization of the ovaries. Please correlate with patient's surgical history. No evidence of an adnexal mass.
[2019-03-19 15:49] VITALS: BP 168/70; PULSE 75; RESP 17; TEMP 36.2; O2SAT 100
--- NOTE | 2019-03-19 17:14 | CMPROGNOTE_ITS ---
Care Management Progress Note S/O: Meghan continues to be closely monitored at this time, and restarted ABX today due to UTI. Anticipate she will discharge to [facility] tomorrow @1300. CM continues to follow. A: 74 y.o. female admitted to [facility] 03/13/19 for UTI, CLAUDIA P: Meghan [facility] term [facility] stay prior to group home care coordination. She will discharge tomorrow, 03/20/19 @1000. Her daughter, Meghan Adams ([phone]) resides in [facility], is the DPOA and manages her mother's finances. Meghan will transport via W/C van provided by [facility],
--- NOTE | 2019-03-19 17:14 | PDOC.CMPRO ---
Care Management Progress Note S/O: Meghan continues to be closely monitored at this time, and restarted ABX today due to UTI. Anticipate she will discharge to [facility] tomorrow @1300. CM continues to follow. A: 74 y.o. female admitted to [facility] 03/13/19 for UTI, CLAUDIA P: Meg[facility] term [facility]hab stay prior to half-way care coordination. She will discharge tomorrow, 03/20/19 @1000. Her daughter, Meghan Adams ([phone]) resides in [facility], is the DPOA and manages her mother's finances. Meghan will transport via W/C van [facility],
[2019-03-19 19:30] VITALS: BP 164/72; PULSE 80; RESP 18; TEMP 36.7; O2SAT 100
[2019-03-19] MEDS: QUEtiapine 25 MG TAB 12.5 MG PO (22:47)
[2019-03-20 00:08] VITALS: BP 143/63; PULSE 79; RESP 17; TEMP 36.6; O2SAT 99
[2019-03-20] MEDS: Levothyroxine 100 MCG TAB PO (07:00)
[2019-03-20 07:14] LABS: Anion Gap 10.5 mmol/L (3-11); BUN 35 mg/dL (7-18); CO2 18.5 mmol/L (21.0-32.0); CREATININE 2.75 mg/dL (0.55-1.02); Calcium 8.4 mg/dL (8.5-10.1); Chloride 114 mmol/L (98-107); Estimated GFR 16.87 (mL/min/1.73m2); Glucose 83 mg/dL (70-100); Potassium 4.6 mmol/L (3.5-5.1); Sodium 143 mmol/L (136-145)
[2019-03-20 07:23] LABS: Abs Immature Grans 0.03 k/cumm (0.0-0.09); Absolute Basophil Count 0.05 k/cumm (0.0-0.2); Absolute Eosinophil Count 0.48 k/cumm (0.0-0.7); Absolute Lymphocyte Count 2.02 k/cumm (1.2-3.4); Absolute Monocyte Count 1.15 k/cumm (0.11-0.7); Absolute Neutrophil Count 5.03 k/cumm (1.2-6.7); Basophils % 0.6; Eosinophils % 5.5; HCT 28.3 % (36.0-46.0); HGB 9.2 g/dL (12.0-15.5); Immature Grans % 0.3; Lymphocytes % 23.1; Mean Corp. HGB Concentration 32.5 g/dL (32.0-36.0); Mean Platelet Volume 10.8 fL (8.0-11.0); Monocytes % 13.1; Neutrophils % 57.4; Platelet Count 263 x1000/uL (130-400); RBC 3.29 m/cumm (4.00-5.20); RBC Distribution Width 14.3 % (11.7-14.6); White Blood Cell Count 8.76 k/cumm (4.4-10.8)
[2019-03-20] MEDS: Ascorbic Acid 500 MG TAB PO (08:01)
[2019-03-20] MEDS: Aspirin 81 MG CHEW PO (08:01)
[2019-03-20] MEDS: Psyllium PKT 1 EACH PO (08:01)
[2019-03-20] MEDS: Folic Acid 1 MG TAB PO (08:01)
[2019-03-20] MEDS: Loperamide 2 MG CAP PO (08:01)
[2019-03-20] MEDS: Pantoprazole 40 MG TABCR PO (08:01)
[2019-03-20] MEDS: Acetaminophen 325 MG TAB 650 MG PO (08:01)
[2019-03-20] MEDS: Ferrous Sulfate 325 MG TAB PO (08:01)
[2019-03-20] MEDS: Nystatin POWDER 15 GM JAR TP (08:07)
--- NOTE | 2019-03-20 08:51 | CMDISCH_ITS ---
LACE Index Scoring Tool - Questions: Length of Stay (in days): 7 - 13 Acuity (Admit via E.D.?): Yes Comorbidities: Any Tumor, Dementia, Liver or Renal Disease E.D. Visits: 1 - Answers: Total Score: 14 Risk of Readmission: High Risk Care Management Discharge Reason for Hospitalization: dementia Discharge Plan: Meghan will discharge to [facility], for a short term rehab stay prior to termite control service representative care coordination. Her daughter, Meghan Adams ([phone]) resides in [facility], is the DPOA and manages her mother's finances. Meghan will transport via W/C van provided by [facility], Patient/Family Education Needs: Review discharge instructions, discuss SNF t ransfer process, insurance limitations. Services Needed at Discharge: Home Health Care Services, Transportation (W/C Van)
--- NOTE | 2019-03-20 08:51 | PDOC.CMDIS ---
LACE Index Scoring Tool - Questions: Length of Stay (in days): 7 - 13 Acuity (Admit via E.D.?): Yes Comorbidities: Any Tumor, Dementia, Liver or Renal Disease E.D. Visits: 1 - Answers: Total Score: 14 Risk of Readmission: High Risk Care Management Discharge Reason for Hospitalization: dementia Discharge Plan: Meghan will discharge to [facility], for a short term rehab stay prior to moth exterminator care coordination. Her daughter, Meghan Adams ([phone]) resides in [facility], is the DPOA and manages her mother's finances. Meghan will transport via W/C van provided by [facility] and [facility], Patient/Family Education Needs: Review discharge instructions, discuss SNF transfer process, insurance limitations. Services Needed at Discharge: Home Health Care Services, Transportation (W/C Van)
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
== END 2019-03-20 13:00 | disposition skilled nursing facility (03) | DRG 683 ==
LOC: ER 23:13 → MS 23:51
PROVIDERS: Internal Medicine; Admitting Provider Internal Medicine; Emergency Provider Student in an Organized Health Care Education/Training Program; Visit Provider Internal Medicine
DX: N17.9 Acute kidney failure, unspecified (principal); Z16.11 Resistance to penicillins; Z16.23 Resistance to quinolones and fluoroquinolones; F03.91 Unspecified dementia, unspecified severity, with behavioral disturbance; N13.6 Pyonephrosis; B95.2 Enterococcus as the cause of diseases classified elsewhere; Z74.2 Need for assistance at home and no other household member able to render care; D50.9 Iron deficiency anemia, unspecified; R33.9 Retention of urine, unspecified; Z86.73 Personal history of transient ischemic attack (TIA), and cerebral infarction without residual deficits; R19.7 Diarrhea, unspecified; N95.0 Postmenopausal bleeding; Z71.89 Other specified counseling; E03.9 Hypothyroidism, unspecified; N18.9 Chronic kidney disease, unspecified; I12.9 Hypertensive chronic kidney disease with stage 1 through stage 4 chronic kidney disease, or unspecified chronic kidney disease; Z85.42 Personal history of malignant neoplasm of other parts of uterus; Z90.710 Acquired absence of both cervix and uterus; Z90.722 Acquired absence of ovaries, bilateral
CPT/HCPCS: 36415; 51701; 76770; 80048; 80053; 82550; 87077; 96360; 96361; 97167; 97535; 99223; 99232; 99233; 99239; 99255; 99285; 70450; 76856; 81003; 81015; 82607; 82728; 82746; 83036; 83540; 83550; 83630; 83735; 84439; 84443; 85025; 87086; 87186; 87324; 99284; J0696; J3420; J3475; J3490

== ENCOUNTER 2019-04-14 11:33 | Inpatient (IN) | payer MEDICARE, OTHER, BC, SELFPAY ==
[2019-04-14] MEDS: Haloperidol 5 MG/ML VIAL IM (12:22)
[2019-04-14] MEDS: LORazepam 2 MG/ML VIAL 1 MG IM (12:22)
--- NOTE | 2019-04-14 12:31 | NUR.NOTE ---
unablel to get vital signs at time of triage as pt was extremely agitated and would not cooperate with staff. she was busy getting her clean diaper off and climbing out of the bed she is swearing at the staff and wants her pants on . ( they are soiled ) . the daughter in law had to go to work. neurology technologist is sitting with the pt and a lunch was orderd. pt is beginning to calm and ate some custard. she is sitting in a chair Nursing Note:
[2019-04-14 12:44] VITALS: BP 133/49; PULSE 70; RESP 16; TEMP 36.5; O2SAT 96
[2019-04-14 13:09] LABS: Bilirubin Negative (Negative); Blood Moderate (Negative); Clarity Sl Cloudy (Clear); Glucose Negative (Negative); Ketones Negative (Negative); Leukocyte Esterase Small (Negative); Nitrite Negative (Negative); Specific Gravity 1.015 (1.005-1.025); Urobilinogen 0.2 EU/dL (Up TO 0.2); pH 5.5 (5-8)
[2019-04-14 13:20] LABS: Lactate 1.3 mmol/L (0.6-1.4)
[2019-04-14 13:34] LABS: Bacteria Many HPF (Negative); Crystals Negative HPF (Negative); Epithelial Cells Rare HPF (Negative); Other Cells Negative (Negative); RBC >50 HPF (0-2)
[2019-04-14 13:35] LABS: C & S Indicated? C&S Done As Ordered; Casts Negative LPF (Negative); Mucus Negative (Negative)
[2019-04-14 13:40] LABS: ALT 18 U/L (14-59); AST 12 U/L (15-37); Albumin 2.5 g/dL (3.4-5.0); Alkaline Phosphatase 69 U/L (46-116); Anion Gap 13.2 mmol/L (3-11); BUN 44 mg/dL (7-18); Bilirubin, Total 0.2 mg/dL (0.2-1.0); CO2 20.8 mmol/L (21.0-32.0); CREATININE 2.68 mg/dL (0.55-1.02); Calcium 8.5 mg/dL (8.5-10.1); Chloride 106 mmol/L (98-107); Estimated GFR 17.37 (mL/min/1.73m2); Glucose 199 mg/dL (74-106); Potassium 3.4 mmol/L (3.5-5.1); Sodium 140 mmol/L (136-145)
[2019-04-14 14:13] LABS: Abs Immature Grans 0.02 k/cumm (0.0-0.09); Absolute Basophil Count 0.03 k/cumm (0.0-0.2); Absolute Eosinophil Count 0.14 k/cumm (0.0-0.7); Absolute Lymphocyte Count 1.06 k/cumm (1.2-3.4); Absolute Monocyte Count 0.86 k/cumm (0.11-0.7); Absolute Neutrophil Count 5.91 k/cumm (1.2-6.7); Basophils % 0.4; Eosinophils % 1.7; HCT 25.1 % (36.0-46.0); HGB 7.9 g/dL (12.0-15.5); Immature Grans % 0.2; Lymphocytes % 13.2; Mean Corp. HGB Concentration 31.5 g/dL (32.0-36.0); Mean Corpuscular Hemoglobin 27.6 pg (27.0-33.0); Mean Corpuscular Volume 87.8 fL (80-95); Mean Platelet Volume 11.2 fL (8.0-11.0); Monocytes % 10.7; Neutrophils % 73.8; Platelet Count 226 x1000/uL (130-400); RBC 2.86 m/cumm (4.00-5.20); White Blood Cell Count 8.02 k/cumm (4.4-10.8)
[2019-04-14] MEDS: QUEtiapine 25 MG TAB 12.5 MG PO ×2 (15:41→21:04)
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
--- NOTE | 2019-04-14 15:59 | NUR.NOTE ---
pt recieved a 4 cm superficial skin abraision on the left foream . she was trying to get up out of the chair and scraped her arm on the w.c.. she also has a small azul on the left ankle from the foot stool. she has had a one on one aide sitting with her. she is very unsteady on her feet. Nursing Note:
[2019-04-14 16:07] VITALS: BP 132/56; PULSE 80; RESP 16; TEMP 36.7; O2SAT 99
--- NOTE | 2019-04-14 16:34 | ED.GENADUL_ITS ---
Discharge Plan Disposition Patient Disposition: [facility] INPATIENT Condition: Fair Discharge Details Chief Complaint: GenMedical Clinical Impression: Dementia Admit Date/Time: 04/14/19 16:54 Admit Provider: Nj Daniels Attending Provider: Nj Daniels Primary Care Provider: Warren Mulligan ED Provider: Fay Reed Discharge Data Discharge Date/Time-TO BE ENTERED AT DEPARTURE: 04/14/19 19:15 Medical Decision Making 74-year-old woman who is having increasing aggressive behavior, and agitation at home over greater than 1 month period of time. Patient has been evaluated in the ER few weeks ago. Patient had CT of head as well as labs and urinalysis. patient did have a recent urinary infection, treated appropriately. Patient has been working with care managers locally. Patient is currently living with son and xqzeftyv-ku-pex. Bfuqancb-pl-ovy at the bedside reports that they are having difficulty managing her at home as she is very aggressive when they try to change her after she defecates. Family has no significant concern with any new recent falls or head injury and she did have a CT of her head 2 weeks ago. Patient has had no fevers or chills. Patient does drink without difficulty. Some decrease in p.o. intake. No other concerns at this time. Spoke with comp field case manager who will try to find the patient a long-term care facility. After conversation with congregational care pastor plan of care is admission for swing bed and Temo will evaluate the patient tomorrow in the hospital for replacement. Patient's labs do reveal mild drop in H&H and chronic kidney disease which is persistent. Patient's urinalysis reveals mild white blood cells as well as moderate blood and small leukocyte esterase, urine culture pending. Spoke with hospitalist. Plan of care is to admit at this time. Family agrees with plan of care. HPI General Date/Time Provider Initiated Documentation: 04/14/19 11:37 . HPI Narrative: Is a 74-year-old patient who is living with her son and rfvjnnkz-cp-ivb who are assisting with her medical care at home however patient has been increasingly agitated and aggressive at home. Patient has frequent bowel accidents and refuses to wear a diaper. Patient has significant agitation anytime she is attempted to be cleaned. Due to social reasons this is becoming increasingly difficult for her son and dgbxzmaf-pa-feq to manage. They have been working with congregational care pastor who is very familiar with the case. They have been trying to place in nursing facility. She was recently relocated from [place] where she has home which they are planning to sell to help pay for nursing management and nursing facility. Patient has had decline in cognition over the last month and a half. Patient was recently seen in the emergency room diagnosed with urinary tract infection and treated appropriately had CT imaging of her head which was unremarkable. Pexpfwtt-yx-chv reports no new falls or concerns of head trauma in the last 2 weeks since her recent visit. Denies fevers or chills. Reportedly has been eating and drinking. Hydrating well Related Data Home Medications Medication Instructions Recorded Confirmed levothyroxine 100 mcg PO DAILY 03/13/19 04/14/19 loperamide 2 mg PO BID 03/13/19 03/13/19 nystatin 1 applic TOPICAL BID 03/13/19 03/13/19 ascorbic acid (vitamin C) [Vitamin 500 mg PO BID #0 tab 03/20/19 C] aspirin 81 mg PO DAILY #0 tab 03/20/19 atorvastatin [Lipitor] 40 mg PO QPM #0 tab 03/20/19 04/14/19 cyanocobalamin (vitamin B-12) 1,000 mcg IM/SC DAILY #0 ml 03/20/19 ferrous sulfate 325 mg PO BID #0 tab 03/20/19 folic acid 1 mg PO QAM #0 tab 03/20/19 04/14/19 pantoprazole 40 mg PO DAILY@0730 #0 tab 03/20/19 04/14/19 quetiapine 12.5 mg PO HS #0 tab 03/20/19 04/14/19 citalopram 10 mg PO DAILY AM 04/14/19 04/14/19 Previous Rx's Medication Instructions Recorded ascorbic acid (vitamin C) [Vitamin 500 mg PO BID #0 tab 03/20/19 C] aspirin 81 mg PO DAILY #0 tab 03/20/19 atorvastatin [Lipitor] 40 mg PO QPM #0 tab 03/20/19 cyanocobalamin (vitamin B-12) 1,000 mcg IM/SC DAILY #0 ml 03/20/19 ferrous sulfate 325 mg PO BID #0 tab 03/20/19 folic acid 1 mg PO QAM #0 tab 03/20/19 pantoprazole 40 mg PO DAILY@0730 #0 tab 03/20/19 quetiapine 12.5 mg PO HS #0 tab 03/20/19 Allergies Allergy/AdvReac Type Severity Reaction Status Date / Time amantadine AdvReac Unknown Unverified 03/17/19 16:21 levofloxacin [From Levaquin] AdvReac Unknown Unverified 03/17/19 16:21 General Stated Complaint: GenMedical RODY: 4 Review of Systems Unobtainable due to mental condition [facility] Medical History CKD (chronic kidney disease) (Acute) Dementia (Chronic) History of colon cancer (Acute) s/p partial colectomy and reversal of colostomy; no chemotherapy Hypothyroid (Chronic) Vaginal bleeding (Acute) Noted as inpatient at [facility] Surgical History H/O colectomy (Resolved) H/O hysterectomy with oophorectomy (Resolved) Unknown date. Family reports hysterectomy to treat uterine cancer. Social History Smoking/Tobacco Use Status: Former Tobacco Use Alcohol Intake: never Drug use: Never Substance use type: does not use Do you feel safe at home: Yes Do you feel safe in your relationship?: Yes Additional Social history: home she came from was not safe in [place]. Exam Narrative Exam Narrative: CONST: Cachectic. Well hydrated. Alert and alert. HENMT: Head nomocephalic, normal to inspection. Atraumatic. Hearing grossly nor mal. EYES: General normal appearance. Alignment normal. Eyelids normal. Conjunctiva normal. NECK: Normal visual inspection. FROM. Trachea midline. No Midline tenderness. CHEST: Normal insepection of the chest. RESP: Normal respiratory effort. Speaking full sentences. No cough. No audible wheezing. No retractions. CARDIO: No JVD. Regular rate and rhythm. Back: Patient with an area of ecchymosis of the right shoulder as well as a small area of ecchymosis on the back. MUSCULOSKELETAL: Normal Gait. FROM of all extremities. Bruising of the medial thighs bilaterally Course Vital Signs Vital signs: Vital Signs Temperature 36.5 C 04/14/19 12:44 Pulse 70 04/14/19 12:44 Respiratory Rate 16 04/14/19 12:44 Blood Pressure 133/49 L 04/14/19 12:44 Pulse Oximetry 96 04/14/19 12:44 Temperature 36.7 C 04/14/19 16:07 Temperature Source Temporal Artery Scan 04/14/19 16:07 Pulse 80 04/14/19 16:07 Respiratory Rate 16 04/14/19 16:07 Respiratory Depth Normal 04/14/19 15:44 Blood Pressure 132/56 L 04/14/19 16:07 Pulse Oximetry 99 04/14/19 16:07 Oxygen Delivery Method Room Air 04/14/19 16:07 Oxygen Flow Rate 0 04/14/19 16:07 Lab/Test Results Lab/Test Results: 04/14/19 13:00 Urine - Cath Straight Urine Culture - Pending Laboratory Tests Range/Units 04/14/19 04/14/19 04/14/19 13:00 13:15 13:15 WBC (4.4-10.8) k/cumm RBC (4.00-5.20) m/cumm Hgb (12.0-15.5) g/dL Hct (36.0-46.0) % MCV (80-95) fL MCH (27.0-33.0) pg MCHC (32.0-36.0) g/dL RDW (11.7-14.6) % Plt Count (130-400) x1000/uL MPV (8.0-11.0) fL Immature Gran % Neutrophils % Lymphocytes % Monocytes % Eosinophils % Basophils % Absolute Neutrophils (1.2-6.7) k/cumm Absolute Lymphocytes (1.2-3.4) k/cumm Absolute Monocytes (0.11-0.7) k/cumm Absolute Eosinophils (0.0-0.7) k/cumm Absolute Basophils (0.0-0.2) k/cumm Sodium (136-145) mmol/L 140 Potassium (3.5-5.1) mmol/L 3.4 L Chloride (98-107) mmol/L 106 Carbon Dioxide (21.0-32.0) mmol/L 20.8 L Anion Gap (3-11) mmol/L 13.2 H BUN (7-18) mg/dL 44 H Creatinine (0.55-1.02) mg/dL 2.68 H Estimated GFR/1.73 m2 (mL/min/1.73m2) 17.37 Glucose (74-106) mg/dL 199 H Lactate (0.6-1.4) mmol/L 1.3 Calcium (8.5-10.1) mg/dL 8.5 Total Bilirubin (0.2-1.0) mg/dL 0.2 AST (15-37) U/L 12 L ALT (14-59) U/L 18 Alkaline Phosphatase (46-116) U/L 69 Total Protein (6.4-8.2) g/dL 7.0 Albumin (3.4-5.0) g/dL 2.5 L Urine Color (Yellow) Yellow Urine Clarity (Clear) Sl cloudy Urine pH (5-8) 5.5 Ur Specific [place] (1.005-1.025) 1.015 Urine Protein (Negative) mg/dL 100 H Urine Ketones (Negative) mg/dL Negative Urine Blood (Negative) Moderate H Urine Nitrite (Negative) Negative Urine Bilirubin (Negative) Negative Urine Urobilinogen (Up TO 0.2) EU/dL 0.2 Ur Leukocyte Esterase (Negative) Small H Urine RBC (0-2) HPF >50 H Urine WBC (0-5) HPF 10-20 H Ur Epithelial Cells (Negative) HPF Rare Urine Crystals (Negative) HPF Negative Urine Bacteria (Negative) HPF Many Urine Casts (Negative) LPF Negative Urine Mucus (Negative) Negative Urine Other (Negative) Negative Ur Culture Indicated? C&s done as ordered Urine Glucose (Negative) mg/dL Negative Range/Units 04/14/19 13:15 WBC (4.4-10.8) k/cumm 8.02 RBC (4.00-5.20) m/cumm 2.86 L Hgb (12.0-15.5) g/dL 7.9 L Hct (36.0-46.0) % 25.1 L MCV (80-95) fL 87.8 MCH (27.0-33.0) pg 27.6 MCHC (32.0-36.0) g/dL 31.5 L RDW (11.7-14.6) % 13.0 Plt Count (130-400) x1000/uL 226 D MPV (8.0-11.0) fL 11.2 H Immature Gran % 0.2 Neutrophils % 73.8 Lymphocytes % 13.2 Monocytes % 10.7 Eosinophils % 1.7 Basophils % 0.4 Absolute Neutrophils (1.2-6.7) k/cumm 5.91 Absolute Lymphocytes (1.2-3.4) k/cumm 1.06 L Absolute Monocytes (0.11-0.7) k/cumm 0.86 H Absolute Eosinophils (0.0-0.7) k/cumm 0.14 Absolute Basophils (0.0-0.2) k/cumm 0.03 Sodium (136-145) mmol/L Potassium (3.5-5.1) mmol/L Chloride (98-107) mmol/L Carbon Dioxide (21.0-32.0) mmol/L Anion Gap (3-11) mmol/L BUN (7-18) mg/dL Creatinine (0.55-1.02) mg/dL Estimated GFR/1.73 m2 (mL/min/1.73m2) Glucose (74-106) mg/dL Lactate (0.6-1.4) mmol/L Calcium (8.5-10.1) mg/dL Total Bilirubin (0.2-1.0) mg/dL AST (15-37) U/L ALT (14-59) U/L Alkaline Phosphatase (46-116) U/L Total Protein (6.4-8.2) g/dL Albumin (3.4-5.0) g/dL Urine Color (Yellow) Urine Clarity (Clear) Urine pH (5-8) Ur Specific [place] (1.005-1.025) Urine Protein (Negative) mg/dL Urine Ketones (Negative) mg/dL Urine Blood (Negative) Urine Nitrite (Negative) Urine Bilirubin (Negative) Urine Urobilinogen (Up TO 0.2) EU/dL Ur Leukocyte Esterase (Negative) Urine RBC (0-2) HPF Urine WBC (0-5) HPF Ur Epithelial Cells (Negative) HPF Urine Crystals (Negative) HPF Urine Bacteria (Negative) HPF Urine Casts (Negative) LPF Urine Mucus (Negative) Urine Other (Negative) Ur Culture Indicated? Urine Glucose (Negative) mg/dL
--- NOTE | 2019-04-14 17:05 | HPE_ITS ---
Date of service: 04/14/19 Time of Service: 17:05 Assessment and Plan Assessment and plan (1) Dementia: Start date: 04/14/19 Start time: 17:32 Status: Chronic Assessment and plan: Patient has become increasingly agitated and aggrevated over the last couple of days. Family unable to care for her. She is demented with orientation only to self. She will be in swing bed status until placement. Qualifiers: Dementia type: vascular dementia Dementia behavioral disturbance: with behavioral disturbance Qualified Code(s): F01.51 - Vascular dementia with behavioral disturbance (2) Anemia: Start date: 04/14/19 Start time: 17:33 Status: Chronic Assessment and plan: Appears chronic in nature with CKD. However she is lower than her low norm. Hematest stool. Iron PO, and monitor H/H Qualifiers: Anemia type: iron deficiency Iron deficiency anemia type: unspecified iron deficiency Qualified Code(s): D50.9 - Iron deficiency anemia, unspecified (3) CKD (chronic kidney disease): Start date: 04/14/19 Start time: 17:34 Status: Acute Assessment and plan: CKD. Monitor, patient at baseline (4) Agitation: Start date: 04/14/19 Start time: 17:35 Status: Acute Assessment and plan: Increasingly agitated. Treat with seroquel PO (5) Skin abrasion: Start date: 04/14/19 Start time: 17:35 Status: Acute Assessment and plan: Multiple abrasions to right lower leg. Right great toe, no odor. Excoration to bottom. Use zinc, a/d and clotrimazole cream Monitor wounds (6) Multiple wounds of skin: Start date: 04/14/19 Start time: 17:36 Status: Acute Assessment and plan: Multiple eccyhmotic areas to bilateral arms and legs. History of Present Illness History of Present Illness Chief Complaint: agitation, dementia Narrative: 74 y.o Female with PMHx anemia, diarrhea, CVA, CKD, DM (noninsulin dependent), and hypothyroid. Presents to [facility] ED with family due to agitation and aggression problems. Currently she lives with her son and daughter in law.They are unable t o care for her at this time. Cognition has declined over last month. She was previously worked up and found to have negative imaging, and labs with diagnose of worsening dementia. In the ED she was found to be anemic at 7.9 and 25.1. At baseline she is anemic however this is the lower end for her. Hematest stools, and monitor H/H. Urine with leukoctye estrase no nitrates, however periarea was dirty this could be an invalid sample, will wait for culture to grow out and hold of on treatment until then. She is oriented only to self. she is being admitted to m/s for swing bed status until we can find placement. Unable to answer questions directly. Review of Systems All systems reviewed & are unremarkable except as noted in HPI and below [facility] Medical History CKD (chronic kidney disease) (Acute) Dementia (Chronic) History of colon cancer (Acute) s/p partial colectomy and reversal of colostomy; no chemotherapy Hypothyroid (Chronic) Vaginal bleeding (Acute) Noted as inpatient at [facility] H Surgical History H/O colectomy (Resolved) H/O hysterectomy with oophorectomy (Resolved) Unknown date. Family reports hysterectomy to treat uterine cancer. Social History Smoking/Tobacco Use Status: Former Tobacco Use Alcohol Intake: never Drug use: Never Substance use type: does not use Do you feel safe at home: Yes Do you feel safe in your relationship?: Yes Additional Social history: home she came from was not safe in [place]. Meds Home Medications and Allergies Home Medications Medication Instructions Recorded Confirmed Type levothyroxine 100 mcg PO DAILY 03/13/19 04/14/19 History loperamide 2 mg PO BID 03/13/19 03/13/19 History nystatin 1 applic TOPICAL BID 03/13/19 03/13/19 History ascorbic acid (vitamin C) [Vitamin 500 mg PO BID #0 tab 03/20/19 Rx C] aspirin 81 mg PO DAILY #0 tab 03/20/19 Rx atorvastatin [Lipitor] 40 mg PO QPM #0 tab 03/20/19 04/14/19 Rx cyanocobalamin (vitamin B-12) 1,000 mcg IM/SC DAILY #0 ml 03/20/19 Rx ferrous sulfate 325 mg PO BID #0 tab 03/20/19 Rx folic acid 1 mg PO QAM #0 tab 03/20/19 04/14/19 Rx pantoprazole 40 mg PO DAILY@0730 #0 tab 03/20/19 04/14/19 Rx quetiapine 12.5 mg PO HS #0 tab 03/20/19 04/14/19 Rx citalopram 10 mg PO DAILY AM 04/14/19 04/14/19 History Allergies Allergy/AdvReac Type Severity Reaction Status Date / Time amantadine AdvReac Unknown Unverified 03/17/19 16:21 levofloxacin [From Levaquin] AdvReac Unknown Unverified 03/17/19 16:21 Exam Const General: cooperative and no acute distress Nutritional Appearance: thin Orientation: alert, awake and oriented x3 HENMT Head: normal to inspection Teeth and gingiva: dentures Eyes General: appearance normal, both eyes and all related structures Sclera: sclerae normal Pupils: PERRL EOM: EOM intact bilaterally Neck Carotids: normal carotid upstroke Lymphatic: no lymphadenopathy noted Chest Chest: normal inspection of the chest Resp Effort & Inspection: normal respiratory effort Auscultation: clear to auscultation bilaterally Cardio Jugular venous pressure: no JVD Palpation: normal PMI Rate: regular rate Rhythm: regular rhythm Heart Sounds: S1 normal Bruits: no carotid bruits GI Inspection: normal to inspection Palpation: soft and no hepatosplenomegaly Auscultation: normal bowel sounds Skin General skin exam: dry skin, ecchymosis and excoriation(s) (to back and buttocks) Other: multiple areas of ecchymoses on bilat arms and legs. Also open area to right littlejohn near ankle. wound to right great toe and knee, non odorous, not draining. Neuro General: moves all extremities and confused (oriented only to self.) Extrem General: normal to inspection, full ROM and no clubbing, cyanosis or edema Psych Appearance: grossly normal Affect: normal affect Attitude: cooperative Results Labs Result diagrams: 04/14/19 13:15 04/14/19 13:15 Labs: Laboratory Results - last 24 hr 04/14/19 04/14/19 04/14/19 13:00 13:15 13:15 WBC RBC Hgb Hct MCV MCH MCHC RDW Plt Count MPV Immature Gran % Neutrophils % Lymphocytes % Monocytes % Eosinophils % Basophils % Absolute Neutrophils Absolute Lymphocytes Absolute Monocytes Absolute Eosinophils Absolute Basophils Sodium 140 Potassium 3.4 L Chloride 106 Carbon Dioxide 20.8 L Anion Gap 13.2 H BUN 44 H Creatinine 2.68 H Estimated GFR/1.73 m2 17.37 Glucose 199 H Lactate 1.3 Calcium 8.5 Total Bilirubin 0.2 AST 12 L ALT 18 Alkaline Phosphatase 69 Total Protein 7.0 Albumin 2.5 L Urine Color Yellow Urine Clarity Sl cloudy Urine pH 5.5 Ur Specific [place] 1.015 Urine Protein 100 H Urine Ketones Negative Urine Blood Moderate H Urine Nitrite Negative Urine Bilirubin Negative Urine Urobilinogen 0.2 Ur Leukocyte Esterase Small H Urine RBC >50 H Urine WBC 10-20 H Ur Epithelial Cells Rare Urine Crystals Negative Urine Bacteria Many Urine Casts Negative Urine Mucus Negative Urine Other Negative Ur Culture Indicated? C&s done as ordered Urine Glucose Negative 04/14/19 13:15 WBC 8.02 RBC 2.86 L Hgb 7.9 L Hct 25.1 L MCV 87.8 MCH 27.6 MCHC 31.5 L RDW 13.0 Plt Count 226 D MPV 11.2 H Immature Gran % 0.2 Neutrophils % 73.8 Lymphocytes % 13.2 Monocytes % 10.7 Eosinophils % 1.7 Basophils % 0.4 Absolute Neutrophils 5.91 Absolute Lymphocytes 1.06 L Absolute Monocytes 0.86 H Absolute Eosinophils 0.14 Absolute Basophils 0.03 Sodium Potassium Chloride Carbon Dioxide Anion Gap BUN Creatinine Estimated GFR/1.73 m2 Glucose Lactate Calcium Total Bilirubin AST ALT Alkaline Phosphatase Total Protein Albumin Urine Color Urine Clarity Urine pH Ur Specific [place] Urine Protein Urine Ketones Urine Blood Urine Nitrite Urine Bilirubin Urine Urobilinogen Ur Leukocyte Esterase Urine RBC Urine WBC Ur Epithelial Cells Urine Crystals Urine Bacteria Urine Casts Urine Mucus Urine Other Ur Culture Indicated? Urine Glucose Last Vital Signs Temp 36.7 C 04/14/19 16:07 Pulse 80 04/14/19 16:07 Resp 16 04/14/19 16:07 BP 132/56 L 04/14/19 16:07 Pulse Ox 99 04/14/19 16:07
[2019-04-14 19:35] VITALS: BP 135/64; PULSE 84; RESP 19; TEMP 38.3; O2SAT 99
[2019-04-14 21:00] VITALS: TEMP 36.9
[2019-04-14] MEDS: Ferrous Sulfate 325 MG TAB PO (21:04)
[2019-04-14] MEDS: Atorvastatin 40 MG TAB PO (21:04)
--- NOTE | 2019-04-14 22:48 | NUR.NOTE ---
Patient is admitted to the medical surgical unit this evening. She is unable to give a history for her admission, because she is fatigue and confused. On examination, she has a large skin tear to her left forearm, mepilex border placed on same and dated, she has scattered bruises over her body and redness to the posterior of her left side. Excoriation to the perineal area. Pt refused to put a brief on.
[2019-04-15] MEDS: Citalopram 10 MG TAB PO (05:33)
[2019-04-15] MEDS: Levothyroxine 100 MCG TAB PO (05:33)
[2019-04-15 07:15] VITALS: BP 119/58; PULSE 79; RESP 16; TEMP 37.1; O2SAT 98
--- NOTE | 2019-04-15 08:38 | PDOC.CMIN ---
Care Management Initial Assess ADVANCE DIRECTIVES:: Living will on file agent is daughter Meghan Adams CODE STATUS:: DNR/DNI INSURANCE COVERAGE / FINANCIAL ISSUES:: Medicare and BCBS
[2019-04-15] MEDS: Pantoprazole 40 MG TABCR PO (09:07)
[2019-04-15] MEDS: Ferrous Sulfate 325 MG TAB PO ×2 (09:07→21:01)
[2019-04-15] MEDS: Folic Acid 1 MG TAB PO (09:07)
--- NOTE | 2019-04-15 09:23 | CM.SWINGPC ---
- If Service Date Differs Date of service: 04/15/19 Time of Service: 09:24 Swingbed Plan of Care Plan of care: SWING BED PROGRAM ACTIVITIES/DISCHARGE PLAN OF CARE ACTIVITIES PLAN Date:04/15/19 Identified Need:Individual activity Intervention/Plan: Television in the room, phone, activity cart offered, reki, music, and pet therapy when available. Initials [facility] DISCHARGE PLAN Date: 04/15/19 Identified Need: PT/OT to increase strength and to assess level of rehab for transition to SNF Intervention/Plan:PT/OT to evaluate and treat Referral to multiple SNF's for placement. Initials [facility]
--- NOTE | 2019-04-15 09:28 | CMSA_ITS ---
- If Service Date Differs Date of service: 04/15/19 Time of Service: 09:28 SB Psychosocial/Act.Assessment - Hospital Admission Admission Date: 04/14/19 Admission From:: Lived with family in their home. Diagnosis:: Dementia - Swing Bed Admission Swing Bed Admit Date:: 04/14/19 Swing Bed Level of Care: Level 1/SNF - Social Supports PREVIOUS FUNCTIONAL STATUS/SOCIAL/FAMILY SUPPORTS:: Meghan previously lived with a son in [place]. Due to family issues, she is no longer able to remain there in her home. Another son, Param, brought her back to [place]. Meghan needs constant supervision which the family cannot provide, so she was brought to the hospital. Physically she is able to ambulate and feed herself but needs direction.They are seeking palcement in a correction care facility. - Prior to Admission Living Arrangements/Environment Prior to Admission:: Meghan was living with her son and DOMINGUEZ in their home in [place] [facility]. She has confusion and needs assistance with all ADL's. Meghan moved to [place] with her DOMINGUEZ and Son because she was unable to care for herself at home. - Benefits Financial: Social Security, Medicare - Advance Directives for Healthcare Advance Directives for Healthcare: Living Will Advance Directive Agent: Daughter Meghan Adams - Present Functional Status Physical Abilities:: Decrease ability to ambulate needs at least one assist for ambulation. PT consult pending Cognitive:: History of dementia does have periords of aggitation which appears to be related to incontinant care Communication:: Meghan is unable to articulate her needs at times her words are jumbled and difficult to understand. Behavior:: Calm, confused and aggittated at times - Medical History PAST MEDICAL HISTORY/PAST SURGICAL HISTORY:: Medical History (Updated 03/14/19 @ 07:53 by Nj Daniels). Dementia (Suspected). History of colon cancer (Acute). s/p partial colectomy and reversal of colostomy; no chemotherapy. Hypothyroid (Chronic). Surgical History (Updated 03/13/19 @ 22:30 by Nj Daniels). H/O colectomy (Resolved) General Health:: Fair - Admission Data Reason for Swing Bed Admission:: PT and OT eval, awaiting SNF placement, family unable to care for at home. Discharge Plan:: SNF referrals pending bed offer. Daughter in [place] agrees with the plan to identify a local SNF until she is able to return Meghan to [place] to a LTC facility. Assessment: Meghan is confused she has expresive aphasia. She arrived to the ED via daughter in law aggitated, and incontinant. Her Iesha area is red and rashed she is aggittated and exhibits signs of discomfort with pericare. CM did contact APS and filed a report concerns that Meghan would not be able to return home with her current caregivers. CM did contact DPOA daughter Meghan and discussed the plan she agrees that Meghan needs to be placed in a nursing faclilty. Meghan (daughter) agrees to referral to local rehab facilities and will contact her local facility to determine if there is a bed near her in [place]. [facility] is coming to meet Meghan at the hospital today to determine if they can meet her level of care need. CM will continue to coordinate discharge plan and disposition. Anticpate Meghan will transition to SB2 during her stay at [facility] while awiating for placement. Facility Environmental Technician: Nikki Fontaine Date Assessment was completed:: 04/15/19
--- NOTE | 2019-04-15 10:04 | OT.INIE ---
Occupational Therapy Notes Inpatient Occupational Therapy Evaluation Date: 04/15/19 Referring Doctor:Nj Daniels MD OT Orders: Non-urgent: Fall Safety Assessment Precautions: Fall, Standard, DNR/DNI PATIENT PROFILE/ADMITTING DIAGNOSIS: Pt is a 74 year old female who was admitted through the ER on 04/14/19 with c/o increased agitation and aggression towards family members, incontinent, dementia, anemia, multiple abrasions to her (R) LE and (R) great toe. Pt was recently admitted about 1 month ago. Past Medical History: Dementia (Suspected) History of colon cancer (Acute) s/p partial colectomy and reversal of colostomy; no chemotherapy Hypothyroid (Chronic) Surgical History H/O colectomy (Resolved) Social History/Home Situation: Pt is unable to speak to her current living situation she is confused and continuously says I don't know when asked. Pt's chart indicates that she lives with her son and DIL. They provide pts care which is almost max (A) for everything at this time and pt continues to become increasing aggitated and aggressive towards them. Pt is incontinent she refuses to wear a brief and is unable to perform her toileting routine (I). Equipment owned/DME: Unable to assess as pt is unable to speak to this. SUBJECTIVE: Pt was sitting in chair when OT arrived. Pt is confused and getting angry about wearing a brief. She is receptive to OT talking with her but states multiple times throughout session I'm fine, this is garbage. OBJECTIVE: General Observation: Pt is very confused and unable to answer with more than 5 word sentences. She is alert and can make eye contact. Mental Status: Alert to name Pain: no c/o pain ROM: RUE AROM limited to 100* although it is unclear as to whether pt can achieve more because she denies. Elbow, wrist and hands WNL L UE AROM limited to 90* although it is unclear as to whether pt can achieve more because she denies. Elbow, wrist and hands WNL STRENGTH: RUE Automatic Silk Screen Printer strength is weak-pt is unable to adequately test other areas of strength LUE Automatic Silk Screen Printer strength is weak, bicep 3/5, tricep 3/5, unable to assess shoulder flexion *Pt is (R) hand dominant. FUNCTIONAL MOBILITY/ADLS: BATHING Performed prior to OT arrival with nursing. Pt denies performance but does have ROM to perform. DRESSING - Pt allowed OT to put socks on her which was max (A). With max vc and step by step pt is unable to don and doff her socks and says you do it. GROOMING Able to for less than 1 minute and then needs re-direction. TOILETING Pt denies- pt was incontinent prior to OT arrival. EATING NT BALANCE: Static sitting Normal Dynamic Sitting Normal SPECIAL TESTS: Daily Activity Limitations Standardized Measure [facility] AM -PAC ?6 clicks? Daily Activity Inpatient Short Form: Raw score: 8 Standardized score: 22.86 CMS score: 85.69% INFORMED CONSENT/EDUCATION: Pt instructed in purpose of OT Consult and plan of care. ASSESSMENT: Patient is a 74-year-old female referred to occupational therapy services with diagnosis of increased agitation and aggression, incontinent, dementia, anemia, multiple abrasions to (R) LE and to (R) great toe. Patient presents with clinical signs and symptoms consistent with dx, as demonstrated by the following impairment level findings: Decreased mental status, decreased gross and fine motor control of (B) UE, decreased functional mobility, inability to perform more than 2 step by step demands, decreased ability to cross midline, decreased strength in (B) UE, increased aggression and agitation. Impairments are contributing to the following functional limitations: Inability to perform LE dressing and bathing, decreased performance of (B) UE ADLs/IADLs, Inability to perform ADLs safely without (A), inability to return to current living situation, decreased mental status. AMPAC score 8 Patient is assessed as a high [id number] complexity based on the following: History: See Above Examination: See functional limitations as noted above Presentation: Evolving Decision Making: AMPAC score 8 GOALS N/A PLAN OF CARE/TREATMENT PLAN: OT consult only. DISCHARGE RECOMMENDATIONS OT recommends that pt go to LTC due to her mental status and decreased ability to care for herself and perform ADLs with increased (I) and decreased safety awareness. TREATMENT TIME/MINUTES/CODES 57325, 20 minutes (09:25) Tahira Rand OTR/[facility]
[2019-04-15 15:36] VITALS: BP 113/58; PULSE 78; RESP 18; TEMP 36.9; O2SAT 99
[2019-04-15] MEDS: Atorvastatin 40 MG TAB PO (21:01)
[2019-04-15] MEDS: QUEtiapine 25 MG TAB 12.5 MG PO (21:01)
[2019-04-16] MEDS: Citalopram 10 MG TAB PO (06:07)
[2019-04-16] MEDS: Levothyroxine 100 MCG TAB PO (06:07)
[2019-04-16 07:05] LABS: Abs Immature Grans 0.02 k/cumm (0.0-0.09); Absolute Basophil Count 0.04 k/cumm (0.0-0.2); Absolute Eosinophil Count 0.16 k/cumm (0.0-0.7); Absolute Lymphocyte Count 1.46 k/cumm (1.2-3.4); Absolute Monocyte Count 1.31 k/cumm (0.11-0.7); Absolute Neutrophil Count 5.09 k/cumm (1.2-6.7); Basophils % 0.5; HCT 24.8 % (36.0-46.0); HGB 7.9 g/dL (12.0-15.5); Immature Grans % 0.2; Lymphocytes % 18.1; Mean Corp. HGB Concentration 31.9 g/dL (32.0-36.0); Mean Corpuscular Hemoglobin 27.5 pg (27.0-33.0); Mean Corpuscular Volume 86.4 fL (80-95); Monocytes % 16.2; Platelet Count 234 x1000/uL (130-400); RBC 2.87 m/cumm (4.00-5.20); RBC Distribution Width 12.7 % (11.7-14.6); White Blood Cell Count 8.08 k/cumm (4.4-10.8)
[2019-04-16 07:10] VITALS: BP 125/58; PULSE 77; RESP 18; TEMP 36.8; O2SAT 98
[2019-04-16 07:25] LABS: BUN 53 mg/dL (7-18); CREATININE 3.01 mg/dL (0.55-1.02); Calcium 8.5 mg/dL (8.5-10.1); Chloride 108 mmol/L (98-107); Glucose 89 mg/dL (74-106); Potassium 3.9 mmol/L (3.5-5.1); Sodium 140 mmol/L (136-145)
[2019-04-16] MEDS: Ferrous Sulfate 325 MG TAB PO ×2 (09:58→19:39)
[2019-04-16] MEDS: Folic Acid 1 MG TAB PO (09:58)
[2019-04-16] MEDS: Pantoprazole 40 MG TABCR PO (09:58)
[2019-04-16 16:04] VITALS: BP 134/68; PULSE 80; RESP 16; TEMP 36.9; O2SAT 98
[2019-04-16] MEDS: Amoxicillin 500 MG CAP PO (16:17)
--- NOTE | 2019-04-16 16:53 | PHARADMIT ---
Addendum entered by Valentin Barreto III 04/17/19 10:42: CM working on future placement. [facility] refused acceptance as patient does not have a payer source. Patient will remain here on Swing Bed until situation is resolved. VS-OK No Labs Wgt-45 kg Amoxicillin for UTI Dementia patient needing buttermaker care placement Original Note: SWINGBED PATIENT Dimentia Family unable to care for her CM working on possibly placement to [facility] Amoxicillin po BID started for UTI (renally adjusted for CrCl~11.9ml/min) Micro urine: >100K Enterococcus Faecalis chronic iron deficiency Seroquel for agitation
--- NOTE | 2019-04-16 16:56 | PT.INNT ---
Date of service: 04/16/19 Time of Service: 14:35 PT Notes Visit Reasons: Dementia Patient could not be engaged to participate in evaluation after a couple of attempts today. Will reassess tomorrow as ordered. Thank you very much for this referral. Catia Copeland PT, DPT, CLT [facility] Inpatient PT at [facility]
--- NOTE | 2019-04-16 17:21 | PDOC.CMPRO ---
- If Service Date Differs Date of service: 04/16/19 Time of Service: 17:21 Care Management Progress Note S/O: Meghan remains in SB1 today she does not have a safe discharge plan. [facility] and [facility] have declined her she does not have a payer source for computer aided design operator care. Her daughter has agreed to swing bed, level 1 and 2 until she can sell the home to pay for care. There is not currently computer aided design operator medicaid in place. has emailed LTM nurse and financial person to determine if there is any other resource that can be sought even through she owns the home. Meghan is confused and continues to have a patient observer with her. She has been appropriate per staff. A: Meghan is a 74 year old female admitted with dementia and failure to thrive at home. Meghan came to live with her daughter in law and son however they were unable to care for her and brought her to the ED. Meghan's daughter in [place] is the DPOA for financial and medical. P: Meghan will be discharged when safe discharge plan can be developed and computer aided design operator placement can be identified. CM will contact [employer] to determine if there are any additional options. Disposition to be determined.
[2019-04-16] MEDS: Atorvastatin 40 MG TAB PO (19:39)
[2019-04-16] MEDS: QUEtiapine 25 MG TAB 12.5 MG PO (21:38)
--- NOTE | 2019-04-17 01:18 | NUR.NOTE ---
Nursing Note: Pt been cooperative on the care this shift, on and off asleep. Incontinent for both. Had loose BM x 2. Bladder scanned performed and obtained 261 after incontinency. Took all scheduled meds as whole and drinking cranberry juice without difficulty. Cadre at bedside at all times. Iesha anal areas remains red, cream applied. Able to ask assistance for needs like changing gown if wet. No negative behavioral issues offered this shift.
[2019-04-17] MEDS: Levothyroxine 100 MCG TAB PO (06:37)
[2019-04-17] MEDS: Citalopram 10 MG TAB PO (06:37)
[2019-04-17 08:10] VITALS: BP 134/63; PULSE 83; RESP 20; TEMP 37.1; O2SAT 93
[2019-04-17] MEDS: Amoxicillin 500 MG CAP PO (08:33)
[2019-04-17] MEDS: Pantoprazole 40 MG TABCR PO (08:33)
[2019-04-17] MEDS: Ferrous Sulfate 325 MG TAB PO (08:34)
[2019-04-17] MEDS: Folic Acid 1 MG TAB PO (08:34)
--- NOTE | 2019-04-17 12:21 | NT_ITS ---
Date of service: 04/17/19 Time of Service: 09:34 PT Notes Visit Reasons: Dementia Another attempt at engaging patient to participate in evaluation was made but to no avail. CADLAN Knox was present during this attempt. Patient remains to be not appropriate for skilled services at this time. PT Thank you very much for this referral. Catia Copeland PT, DPT, CLT [facility] Inpatient PT at [facility]
--- NOTE | 2019-04-17 14:07 | W.NUTCONSULT ---
Date of service: 04/17/19 Time of Service: 14:08 Nutritional Consult ASSESSMENT: 74 year old female with dementia (oriented to self only), hx significant weight loss. malnutrition, diarrhea, anemia, CKD, DM (non insulin). Meds include FeS04, B12 and folic acid. Following regular meal plan and meeting nutrient/fluid needs x 2 days. No issues with swallowing documented, able to feed self with cueing. Tried to engage resident but unable to make reasonable conversation, unable to pick own menu. Appears malnourished, BMI indicates underweight but with current intake, expect weight gain of 1-2 lbs per weeks. Awaiting LTC placement. Labs reviewed and unremarkable. Nutrient needs estimated at [id number] kcal, 40-50 g protein, 1400ml fluid, will meet with 70% meal completion. At high nutritional risk in view of sig weight loss, low BMI and malnourished appearance. Intervention: meal cueing as needed, will monitor po intake and weight trends and adjust meal plan as warranted. Time Spent in Nutritional Counseling and Treatment: 0 time spent face to face
--- NOTE | 2019-04-17 14:56 | CHAPLAIN ---
Meghan was sitting up in a chair when I visited. She looked at me and responded minimally to questions. Meghan appeared to be focused at looking at the community relations advisor at her desk and became frustrated when someone got in the way of her view.
[2019-04-17 15:33] LABS: Bilirubin Negative (Negative); Blood Large (Negative); Clarity Sl Cloudy (Clear); Glucose Negative (Negative); Ketones Negative (Negative); Leukocyte Esterase Moderate (Negative); Nitrite Negative (Negative); Specific Gravity 1.015 (1.005-1.025); Urobilinogen 0.2 EU/dL (Up TO 0.2)
[2019-04-17 15:35] VITALS: BP 115/67; PULSE 80; RESP 16; TEMP 37.1; O2SAT 100
[2019-04-17 15:45] LABS: C & S Indicated? Yes; RBC >50 HPF (0-2); WBC >50 HPF (0-5)
--- NOTE | 2019-04-17 17:02 | CMPROGNOTE_ITS ---
- If Service Date Differs Date of service: 04/17/19 Time of Service: 17:02 Care Management Progress Note S/O: Meghan will be discharged from 1 and admitted to inpatient acute today. She has developed a UTI and her kidney function is declining a bit as well as her H&H. She continues to need a patient observer. Her discharge plan remains unclear as she does not have a payer source for LTC. Awaiting reply from LTM re: possibility of getting LTM for [place] in [place] while awaiting the sale of her home in [place]. Meghan is confused and continues to have a CPSO with her. She has been appropriate per staff. A: Meghan is a 74 year old female admitted with dementia and failure to thrive at home. Meghan came to live with her daughter in law and son however they were unable to care for her and brought her to the ED. Meghan's daughter in [place] is the DPOA for financial and medical. P: Meghan will be discharged when safe discharge plan can be developed and senior living placement can be identified. CM will contact [employer] to determine if there are any additional options. Disposition to be determined.
--- NOTE | 2019-04-17 17:14 | DSE_ITS ---
Date of service: 04/17/19 Time of Service: 17:14 DS: Diagnosis Discharge Diagnosis (1) Dementia: Status: Chronic (2) Anemia: Status: Chronic (3) CKD (chronic kidney disease): Status: Acute (4) Agitation: Status: Acute (5) Skin abrasion: Status: Acute (6) Multiple wounds of skin: Status: Acute Discharge Plan Disposition Patient Disposition: [facility] INPATIENT Condition: Fair Discharge Details Chief Complaint: GenMedical Clinical Impression: Dementia Reason For Visit: DEMENTIA Admit Date/Time: 04/14/19 16:54 Admit Provider: Nj Daniels Attending Provider: Nj Daniels Primary Care Provider: Warren Mulligan ED Provider: Fay Reed Hospital Course Hospital Course: Meghan Marin is a 70-year-old female with a past medical history of dementia, anemia, CVA, chronic kidney disease, wat-[id number] diabetes, hypothyroidism who was brought to the [facility] emergency department on 04/14/2019 due to agitation and aggression with her family at home. Apparently she had become increasingly more agitated over the last month. At that time, she was noted to be anemic with a hemoglobin of 7.9 and a hematocrit of 25.1, her urine showed leukocyte esterase, no nitrates, no treatment was initiated for urinary tract infection pending culture results. She was admitted to swing bed status while care management worked on a safe disposition for her. She has had a one-to-one patient observer for safety. Her urine culture grew Enterococcus faecalis and she was initiated on amoxicillin. Her repeat hemoglobin and hematocrit showed stable hemoglobin at 7.9, however, her renal function had worsened. Her BUN was 53, her creatinine was 3.01. There was also concern for urinary retention, she was requiring bladder scans with intermittent straight catheterizations. Given the above, she is admitted to acute status as she requires frequent monitoring. She will be started on IV fluids, antibiotics will be continued. She will have repeat labs tomorrow to reassess her renal function and her anemia. Stools will be assessed for occult blood. She will continue to have bladder scans with intermittent catheterization and possibly a Lopez catheter placement. Home Meds and New Rx's Prescriptions: No Action loperamide 2 mg Capsule 2 mg PO BID RF: 0 levothyroxine 100 mcg Tablet 100 mcg PO DAILY RF: 0 nystatin 100,000 unit/gram Powder 1 applic TOPICAL BID RF: 0 quetiapine 25 mg Tablet 12.5 mg PO HS Qty: 0 RF: 0 atorvastatin [Lipitor] 40 mg Tablet 40 mg PO QPM Qty: 0 RF: 0 ascorbic acid (vitamin C) [Vitamin C] 500 mg Tablet 500 mg PO BID Qty: 0 RF: 0 pantoprazole 40 mg Tablet,Delayed Release (Dr/Ec) 40 mg PO DAILY@0730 Qty: 0 RF: 0 cyanocobalamin (vitamin B-12) 1,000 mcg/mL Solution 1,000 mcg IM/SC DAILY Qty: 0 RF: 0 ferrous sulfate 325 mg (65 mg iron) Tablet 325 mg PO BID Qty: 0 RF: 0 aspirin 81 mg Tablet,Chewable 81 mg PO DAILY Qty: 0 RF: 0 folic acid 1 mg Tablet 1 mg PO QAM Qty: 0 RF: 0 citalopram 10 mg Tablet 10 mg PO DAILY AM RF: 0 Discharge Instructions Activity:: Activity as Tolerated Equipment/Supplies:: No Equipment Needed Diet:: Carb Counting DS: Summary Status at Discharge Functional status at discharge: uses cane/walker Overall status at discharge: patient is progressing back to baseline Mental Status: other (Agitation and history of dementia) Speech and Movement: speech and movement normal Mood: congruent mood (calm at this time.) and other (Agitation and history of dementia) Affect: normal affect (Pleasant and calm at this time.) Exam Narrative Exam Narrative: General: 74-year-old female, appears younger than stated age, lying in bed on her right side. Smiling and pleasant. Answers questions with yes. HEENT: Normocephalic, atraumatic, pupils are symmetrical and round, mucous membranes moist. Neck: Supple, no JVD. Cardiovascular: Heart has regular rate and rhythm, no murmur appreciated. Respiratory: Respirations appear even and unlabored, lung sounds clear to auscultation bilaterally. GI: Normoactive bowel sounds throughout, abdomen is soft, nontender on palpation, nondistended. Extremities: No clubbing, cyanosis or edema. Pedal pulses are palpable bilaterally. Psych Mental Status: other (Agitation and history of dementia) Speech and Movement: speech and movement normal Mood: congruent mood (calm at this time.) and other (Agitation and history of dementia) Affect: normal affect (Pleasant and calm at this time.) DS: Data Vitals/I&O Vitals and I&O: Vital Signs Temperature 37.1 C 04/17/19 15:35 Temperature Source Temporal Artery Scan 04/17/19 15:35 Pulse 80 04/17/19 15:35 Pulse Rhythm Regular 04/17/19 15:35 Respiratory Rate 16 04/17/19 15:35 Respiratory Effort 04/17/19 15:35 Respiratory Depth Normal 04/17/19 15:35 Respiratory Pattern Normal 04/17/19 15:35 Blood Pressure 115/67 04/17/19 15:35 Pulse Oximetry 100 04/17/19 15:35 Oxygen Delivery Method Room Air 04/17/19 15:35 Oxygen Flow Rate 0 04/17/19 15:35 Pain Level 0 04/17/19 08:10 Comment 04/17/19 15:35 Intake & Output 04/16/19 04/17/19 04/17/19 23:59 11:59 23:59 Intake Total 480 / 720 720 / 960 240 / 960 Output Total 600 / 600 700 / 1150 450 / 1150 Balance -120 / 120 20 / -190 -210 / -190 Weight 45 kg Intake: Oral 480 / 720 720 / 960 240 / 960 Output: Urine 600 / 600 700 / 1150 450 / 1150 Other: Urine Color Yellow Yellow Urine Appearance Clear Clear Urine Odor Normal Comment had loose stools x2. milky urine, then turned to milky red. Pt pulled on catheter, would not leave in place. demented. removed lopez. in and out cath preformed Stool Size Large Stool Characteristics Liquid Brown Voiding Methods Diaper Incontinent Incontinent Data Completed and Pending Labs on day of discharge: Labs from last 24 hours 04/17/19 14:50 Urine Color Doon Urine Clarity Sl cloudy Urine pH 6.0 Ur Specific [place] 1.015 Urine Protein >=300 H Urine Ketones Negative Urine Blood Large H Urine Nitrite Negative Urine Bilirubin Negative Urine Urobilinogen 0.2 Ur Leukocyte Esterase Moderate H Urine RBC >50 H Urine WBC >50 H Ur Epithelial Cells Not Applicable Urine Crystals Not Applicable Urine Bacteria Not Applicable Urine Mucus Not Applicable Ur Culture Indicated? Yes Urine Glucose Negative 04/17/19 14:50 Urine - Reflex from Urine Culture - Pending Preliminary micro results at discharge 04/17/19 14:50 Urine Culture - Pending Urine - Reflex from On license of [facility] Medical History CKD (chronic kidney disease) (Acute) Dementia (Chronic) History of colon cancer (Acute) s/p partial colectomy and reversal of colostomy; no chemotherapy Hypothyroid (Chronic) Vaginal bleeding (Acute) Noted as inpatient at [facility] Surgical History H/O colectomy (Resolved) H/O hysterectomy with oophorectomy (Resolved) Unknown date. Family reports hysterectomy to treat uterine cancer. Social History Smoking/Tobacco Use Status: Former Tobacco Use Alcohol Intake: never Drug use: Never Substance use type: does not use Do you feel safe at home: Yes Do you feel safe in your relationship?: Yes Additional Social history: home she came from was not safe in [place].
== END 2019-04-17 17:27 | disposition short-term general hospital (02) | DRG 884 ==
LOC: ER 18:17 → MS 04-15 09:45
PROVIDERS: Admitting Provider Internal Medicine; Emergency Provider Physician Assistant; PCP Family Medicine; Visit Provider Family Medicine
DX: F01.51 Vascular dementia, unspecified severity, with behavioral disturbance (principal); N39.0 Urinary tract infection, site not specified; B95.2 Enterococcus as the cause of diseases classified elsewhere; N18.9 Chronic kidney disease, unspecified; D63.1 Anemia in chronic kidney disease; E11.22 Type 2 diabetes mellitus with diabetic chronic kidney disease; Z86.73 Personal history of transient ischemic attack (TIA), and cerebral infarction without residual deficits; E03.9 Hypothyroidism, unspecified; S80.811A Abrasion, right lower leg, initial encounter; S90.411A Abrasion, right great toe, initial encounter; X58.XXXA Exposure to other specified factors, initial encounter
CPT/HCPCS: 36415; 51701; 80048; 80053; 87077; 93005; 96372; 97167; 99223; 99239; 99285; 99305; 99316; 81003; 81015; 83605; 85025; 87086; 87186; 93010; 99284; J1630; J2060

== ENCOUNTER 2019-04-17 16:40 | Inpatient (IN) | payer MEDICARE, OTHER, BC, SELFPAY ==
--- NOTE | 2019-04-17 16:47 | HPE_ITS ---
Date of service: 04/17/19 Time of Service: 16:47 Assessment and Plan Assessment and plan (1) UTI (urinary tract infection): Status: Acute Assessment and plan: Urine culture growing Enterococcus faecalis. She has been retaining urine. Continue bladder scans every 6 hours and cath for residual greater than 300. May need Ramsay catheter. Continue amoxicillin. Qualifiers: Urinary tract infection type: site unspecified (2) Acute kidney injury (nontraumatic): Status: Acute Assessment and plan: Acute kidney injury in the setting of chronic kidney disease. Creatinine worse than admission at 3.01. Hydrate with IV fluids overnight, repeat BMP in the morning. (3) Hypothyroid: Status: Chronic Assessment and plan: Most recent TSH within normal limits. Continue levothyroxine. Qualifiers: Hypothyroidism type: acquired Qualified Code(s): E03.9 - Hypothyroidism, unspecified (4) Dementia: Status: Chronic Assessment and plan: With recent increased agitation. Treat urinary tract infection. Continue Seroquel. Care management is working on placement. Qualifiers: Dementia type: vascular dementia Dementia behavioral disturbance: with behavioral disturbance Qualified Code(s): F01.51 - Vascular dementia with behavioral disturbance (5) History of diabetes mellitus: Status: Ruled-out Assessment and plan: Will assess fasting glucose in the morning. She is not on medication for diabetes. Continue carb counting diet. (6) Agitation: Status: Acute Assessment and plan: Dementia with agitation, continue Seroquel as above. (7) Multiple wounds of skin: Status: Acute Assessment and plan: Continue zinc, A& D and clotrimazole cream to rita- area. Continue dressing care on acute status. (8) Anemia: Status: Chronic Assessment and plan: Her hemoglobin appears to be stable at 7.9. Heme test stools. Reassess H&H in the morning. Qualifiers: Anemia type: iron deficiency Iron deficiency anemia type: unspecified iron deficiency Qualified Code(s): D50.9 - Iron deficiency anemia, unspecified (9) DVT prophylaxis: Status: Acute Assessment and plan: Hold off on chemical DVT prophylaxis in the setting of anemia. Teds and SCDs for mechanical DVT prophylaxis (10) Discharge planning issues: Status: Acute Assessment and plan: She is a DNR/DNI. Discussed transition to acute care with her daughter, her daughter is in agreement with her receiving IV fluids. Her daughter is her DPOA. Care management is working on placement for her. This case was discussed with Dr. Jovel who is in agreement. History of Present Illness History of Present Illness Chief Complaint: UTI, urinary retention, anemia Narrative: Meghan Marin is a 70-year-old female with a past medical history of dementia, anemia, CVA, chronic kidney disease, opb-[id number]-[id number] diabetes, hypothyroidism who was brought to the [facility] emergency department on 04/14/2019 due to agitation and aggression with her family at home. Apparently she had become increasingly more agitated over the last month. At that time, she was noted to be anemic with a hemoglobin of 7.9 and a hematocrit of 25.1, her urine showed leukocyte esterase, no nitrates, no treatment was initiated for urinary tract infection pending culture results. She was admitted to swing bed status while care management worked on a safe disposition for her. She has had a one-to-one patient observer for safety. Her urine culture grew Enterococcus faecalis and she was initiated on amoxicillin. Her repeat hemoglobin and hematocrit showed stable hemoglobin at 7.9, however, her renal function had worsened. Her BUN was 53, her creatinine was 3.01. There was also concern for urinary retention, she was requiring bladder scans with intermittent straight catheterizations. Given the above, she is admitted to acute status as she requires frequent monitoring. She will be started on IV fluids, antibiotics will be continued. She will have repeat labs tomorrow to reassess her renal function and her anemia. Stools will be assessed for occult blood. She will continue to have bladder scans with intermittent catheterization and possibly a Ramsay catheter placement. Review of Systems Narrative: She offers no complaints when questioned, however, she does not answer questions appropriately. Unobtainable due to mental condition [facility] Medical History CKD (chronic kidney disease) (Acute) Dementia (Chronic) History of colon cancer (Acute) s/p partial colectomy and reversal of colostomy; no chemotherapy Hypothyroid (Chronic) Vaginal bleeding (Acute) Noted as inpatient at [facility] Surgical History H/O colectomy (Resolved) H/O hysterectomy with oophorectomy (Resolved) Unknown date. Family reports hysterectomy to treat uterine cancer. Social History Smoking/Tobacco Use Status: Former Tobacco Use Alcohol Intake: never Drug use: Never Substance use type: does not use Do you feel safe at home: Yes Do you feel safe in your relationship?: Yes Additional Social history: home she came from was not safe in [place]. Meds Home Medications and Allergies Home Medications Medication Instructions Recorded Confirmed Type levothyroxine 100 mcg PO DAILY 03/13/19 04/14/19 History loperamide 2 mg PO BID 03/13/19 03/13/19 History nystatin 1 applic TOPICAL BID 03/13/19 03/13/19 History ascorbic acid (vitamin C) [Vitamin 500 mg PO BID #0 tab 03/20/19 Rx C] aspirin 81 mg PO DAILY #0 tab 03/20/19 Rx atorvastatin [Lipitor] 40 mg PO QPM #0 tab 03/20/19 04/14/19 Rx cyanocobalamin (vitamin B-12) 1,000 mcg IM/SC DAILY #0 ml 03/20/19 Rx ferrous sulfate 325 mg PO BID #0 tab 03/20/19 Rx folic acid 1 mg PO QAM #0 tab 03/20/19 04/14/19 Rx pantoprazole 40 mg PO DAILY@0730 #0 tab 03/20/19 04/14/19 Rx quetiapine 12.5 mg PO HS #0 tab 03/20/19 04/14/19 Rx citalopram 10 mg PO DAILY AM 04/14/19 04/14/19 History Allergies Allergy/AdvReac Type Severity Reaction Status Date / Time amantadine AdvReac Unknown Unverified 03/17/19 16:21 levofloxacin [From Levaquin] AdvReac Unknown Unverified 03/17/19 16:21 Exam Narrative Exam Narrative: General: 74-year-old female, appears younger than stated age, lying in bed on her right side. Smiling and pleasant. Answers questions with yes. HEENT: Normocephalic, atraumatic, pupils are symmetrical and round, mucous membranes moist. Neck: Supple, no JVD. Cardiovascular: Heart has regular rate and rhythm, no murmur appreciated. Respiratory: Respirations appear even and unlabored, lung sounds clear to auscultation bilaterally. GI: Normoactive bowel sounds throughout, abdomen is soft, nontender on palpation, nondistended. Extremities: No clubbing, cyanosis or edema. Pedal pulses are palpable bilaterally.
[2019-04-17] MEDS: Ferrous Sulfate 325 MG TAB PO (21:11)
[2019-04-17] MEDS: Amoxicillin 500 MG CAP PO (21:11)
[2019-04-17] MEDS: Atorvastatin 40 MG TAB PO (21:11)
[2019-04-17] MEDS: QUEtiapine 25 MG TAB 12.5 MG PO (21:27)
[2019-04-17] MEDS: Normal Saline 1,000 ML 100 ML IV (23:38)
[2019-04-18 02:30] VITALS: BP 135/68; PULSE 77; RESP 16; TEMP 37.2; O2SAT 99
[2019-04-18] MEDS: Citalopram 10 MG TAB PO (06:35)
[2019-04-18] MEDS: Levothyroxine 100 MCG TAB PO (06:35)
[2019-04-18 07:35] LABS: HCT 24.5 % (36.0-46.0); HGB 7.7 g/dL (12.0-15.5); Mean Corp. HGB Concentration 31.4 g/dL (32.0-36.0); Mean Corpuscular Hemoglobin 27.2 pg (27.0-33.0); Mean Corpuscular Volume 86.6 fL (80-95); Mean Platelet Volume 10.3 fL (8.0-11.0); Platelet Count 257 x1000/uL (130-400); RBC 2.83 m/cumm (4.00-5.20); RBC Distribution Width 12.8 % (11.7-14.6); White Blood Cell Count 8.44 k/cumm (4.4-10.8)
[2019-04-18 07:48] LABS: Anion Gap 12.2 mmol/L (3-11); BUN 58 mg/dL (7-18); CO2 18.8 mmol/L (21.0-32.0); CREATININE 2.99 mg/dL (0.55-1.02); Calcium 8.6 mg/dL (8.5-10.1); Chloride 109 mmol/L (98-107); Estimated GFR 15.31 (mL/min/1.73m2); Glucose 99 mg/dL (74-106); Magnesium 0.9 mg/dL (1.8-2.4); Potassium 4.4 mmol/L (3.5-5.1); Sodium 140 mmol/L (136-145)
[2019-04-18 07:50] VITALS: BP 130/67; PULSE 69; RESP 20; TEMP 36.7; O2SAT 99
[2019-04-18] MEDS: Amoxicillin 500 MG CAP PO ×2 (07:52→19:39)
[2019-04-18] MEDS: Folic Acid 1 MG TAB PO (07:52)
[2019-04-18] MEDS: Ferrous Sulfate 325 MG TAB PO ×2 (07:52→19:40)
[2019-04-18] MEDS: Pantoprazole 40 MG TABCR PO (07:52)
[2019-04-18] MEDS: Normal Saline 1,000 ML 100 ML IV ×2 (07:52→16:58)
[2019-04-18] MEDS: MAGNESIUM SULFATE 4 GM/100 ML BAG IVPB (09:12)
--- NOTE | 2019-04-18 10:16 | PT.INNT ---
Date of service: 04/18/19 Time of Service: 10:16 PT Notes Visit Reasons: UTI, URINARY RETENTION, ANEMIA Patient remains to be unable to fully comprehend, follow instructions, and initiate tasks despite verbal, tactile, and visual cues given. Patient is not motivated to do anything at this time and continues to be not appropriate for physical therapy services. Thank you very much for this referral. Catia Copeland PT, DPT, CLT [facility] Inpatient PT at [facility]
--- NOTE | 2019-04-18 10:26 | OT.INNT ---
Date of service: 04/18/19 Time of Service: 09:25 Occupational Therapy Notes 04/18/19 OT went to see pt, pt was pleasant to OT and was smiling. Pt is not appropriate for OT services she is unable to perform any step by step commands. She is willing to listen to what OT has to say but if she doesn't want to perform she will state that she wants everyone to get out. OT is unable to train or educate pt in her ADLs. OT recommends that pt go to LTC facility based on her current level of function. Tahira Rand, OTR/L [facility]
--- NOTE | 2019-04-18 15:24 | PDOC.CMPRO ---
- If Service Date Differs Date of service: 04/18/19 Time of Service: 15:24 Care Management Progress Note S/O: Meghan is lying in bed when CM comes to meet with her. Her speech is soft and difficult to understand. She is confused and continues to require a CPSO in the room for monitoring. She was originally admitted to 1 but her status was changed to inpatient yesterday after she developed a urinary tract infection and was started on IV fluids and antibiotics. CM continues to follow. A: Meghan is a 74 year old female admitted to [facility] on 04/14/2019 for dementia and failure to thrive at home. P: Meghan will be discharged when a safe discharge plan has been developed and she has been medically cleared by provider. Disposition remains undetermined at this time. CM continues to follow and to support discharge planning considerations.
[2019-04-18 16:02] VITALS: BP 157/61; PULSE 62; RESP 17; TEMP 36.6; O2SAT 97
--- NOTE | 2019-04-18 16:06 | W.PM.PROGNOT ---
Date of Service Date of service: 04/18/19 Time of Service: 16:06 Assessment and Plan Assessment and plan (1) UTI (urinary tract infection): Status: Acute Assessment and plan: Urine culture growing Enterococcus faecalis. She has been retaining urine. Continue bladder scans every 6 hours and cath for residual greater than 300. May need Ramsay catheter. Continue amoxicillin. Qualifiers: Urinary tract infection type: site unspecified (2) Acute kidney injury (nontraumatic): Status: Acute Assessment and plan: Acute kidney injury in the setting of chronic kidney disease. Creatinine elevated at 2.99, slightly above baseline . Continue to hydrate with IV fluids overnight, repeat BMP in the morning. (3) Hypothyroid: Status: Chronic Assessment and plan: Most recent TSH within normal limits. Continue levothyroxine. Qualifiers: Hypothyroidism type: acquired Qualified Code(s): E03.9 - Hypothyroidism, unspecified (4) Dementia: Status: Chronic Assessment and plan: With recent increased agitation. Treat urinary tract infection. Continue Seroquel. Care management is working on placement. Qualifiers: Dementia type: vascular dementia Dementia behavioral disturbance: with behavioral disturbance Qualified Code(s): F01.51 - Vascular dementia with behavioral disturbance (5) History of diabetes mellitus: Status: Ruled-out Assessment and plan: Fasting glucose 99 this morning. She is not on medication for diabetes. Continue carb counting diet. (6) Agitation: Status: Acute Assessment and plan: Dementia with agitation, continue Seroquel as above. (7) Multiple wounds of skin: Status: Acute Assessment and plan: Continue zinc, A& D and clotrimazole cream to rita-area. Continue dressing changes. (8) Anemia: Status: Chronic Assessment and plan: Her hemoglobin appears to be stable at 7.7. Heme test stools. Reassess H&H in the morning. Qualifiers: Anemia type: iron deficiency Iron deficiency anemia type: unspecified iron deficiency Qualified Code(s): D50.9 - Iron deficiency anemia, unspecified (9) DVT prophylaxis: Status: Acute Assessment and plan: Hold off on chemical DVT prophylaxis in the setting of anemia. Teds and SCDs for mechanical DVT prophylaxis (10) Discharge planning issues: Status: Acute Assessment and plan: She is a DNR/DNI. Discussed transition to acute care with her daughter, her daughter is in agreement with her receiving IV fluids. Her daughter is her DPOA. Care management is working on placement for her. She will likely go back on swing bed status when stabilized. This case was discussed with Dr. Harris who is in agreement. Subjective Subjective Interval history since last seen: Meghan is resting in bed with one-to-one patient observer present. When awakened, she states, I'm tired. Otherwise, she offers no complaints. She answers, yes to all questions. She is pleasant and smiling. Nursing has been scanning her bladder, she required intermittent catheterization x1 today. Exam Narrative Exam Narrative: General: 74-year-old female, appears younger than stated age, lying in bed on her right side. Smiling and pleasant. Answers questions with yes. HEENT: Normocephalic, atraumatic, pupils are symmetrical and round, mucous membranes moist. Neck: Supple, no JVD. Cardiovascular: Heart has regular rate and rhythm, no murmur appreciated. Respiratory: Respirations appear even and unlabored, lung sounds clear to auscultation bilaterally. GI: Normoactive bowel sounds throughout, abdomen is soft, nontender on palpation, nondistended. Extremities: No clubbing, cyanosis or edema. Pedal pulses are palpable bilaterally. Objective Objective Clinical Data: Abnormal lab results 04/18/19 04/18/19 Range/Units 07:20 07:20 RBC 2.83 L (4.00-5.20) m/cumm Hgb 7.7 L (12.0-15.5) g/dL Hct 24.5 L (36.0-46.0) % MCHC 31.4 L (32.0-36.0) g/dL Chloride 109 H (98-107) mmol/L Carbon Dioxide 18.8 L (21.0-32.0) mmol/L Anion Gap 12.2 H (3-11) mmol/L BUN 58 H (7-18) mg/dL Creatinine 2.99 H (0.55-1.02) mg/dL Magnesium 0.9 L (1.8-2.4) mg/dL Vital Signs Temperature 36.6 C 04/18/19 16:02 Temperature Source Tympanic 04/18/19 16:02 Pulse 62 04/18/19 16:02 Pulse Rhythm Regular 04/18/19 08:06 Respiratory Rate 17 04/18/19 16:02 Respiratory Effort Non-Labored 04/18/19 08:06 Respiratory Depth Normal 04/18/19 08:06 Respiratory Pattern Normal 04/18/19 08:06 Blood Pressure 157/61 H 04/18/19 16:02 Pulse Oximetry 97 04/18/19 16:02 Oxygen Delivery Method Room Air 04/18/19 16:02 Oxygen Flow Rate 0 04/18/19 16:02 Pain Level 0 04/18/19 16:02 Intake & Output 04/17/19 04/18/19 04/18/19 23:59 11:59 23:59 Intake Total 440 / 440 1183.333 / 1303.333 120 / 1303.333 Output Total / 701 / 1501 800 / 1501 Balance 438 / 438 482.333 / -197.667 -680 / -197.667 Weight 45 kg 46.1 kg Intake: IV 823.333 / 823.333 Oral 440 / 440 360 / 480 120 / 480 Output: Urine 700 / 1500 800 / 1500 Stool Other: Urine Color Yellow Urine Appearance Clear Clear Urine Odor None Comment small incontinent void when she stood up cathed for 800 Stool Occult Blood Negative Stool Size Large Moderate Stool Characteristics Soft Soft Brown Nicholas Voiding Methods Incontinent Incontinent Laboratory Results WBC 8.44 k/cumm (4.4-10.8) 04/18/19 07:20 RBC 2.83 m/cumm (4.00-5.20) L 04/18/19 07:20 Hgb 7.7 g/dL (12.0-15.5) L 04/18/19 07:20 Hct 24.5 % (36.0-46.0) L 04/18/19 07:20 MCV 86.6 fL (80-95) 04/18/19 07:20 MCH 27.2 pg (27.0-33.0) 04/18/19 07:20 MCHC 31.4 g/dL (32.0-36.0) L 04/18/19 07:20 RDW 12.8 % (11.7-14.6) 04/18/19 07:20 Plt Count 257 x1000/uL (130-400) 04/18/19 07:20 MPV 10.3 fL (8.0-11.0) 04/18/19 07:20 Sodium 140 mmol/L (136-145) 04/18/19 07:20 Potassium 4.4 mmol/L (3.5-5.1) 04/18/19 07:20 Chloride 109 mmol/L (98-107) H 04/18/19 07:20 Carbon Dioxide 18.8 mmol/L (21.0-32.0) L 04/18/19 07:20 Anion Gap 12.2 mmol/L (3-11) H 04/18/19 07:20 BUN 58 mg/dL (7-18) H 04/18/19 07:20 Creatinine 2.99 mg/dL (0.55-1.02) H 04/18/19 07:20 Estimated GFR/1.73 m2 15.31 (mL/min/1.73m2) 04/18/19 07:20 Glucose 99 mg/dL (74-106) 04/18/19 07:20 Calcium 8.6 mg/dL (8.5-10.1) 04/18/19 07:20 Magnesium 0.9 mg/dL (1.8-2.4) L 04/18/19 07:20
--- NOTE | 2019-04-18 16:15 | PHARADMIT ---
Addendum entered by Valentin Barreto III 04/21/19 11:14: Pharmacy Note Subjective Dementia patient rec'd transfusion 2 days ago, H&H-OK (10.0/31.1) Had consult. Experiencing urinary retention on Flomax now. Objective BP-148/73 VS-OK SCr-2.47 Labs-OK Wgt-47.4 kg Stool-heme neg Assessment Amoxiciilin DC'd (completed 5 days for UTI), requiring Seroquel for behavior & agitation,. Plan Watch H&H, SCr, Will probably become a Swing Bed patient here. No DVT proph started yet... 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 on doing repeat UA in AM, if negative will stop abx Plan continue to watch VS and labs watch for UA results tomrrow/possible stop of abx (no stop time on order yet) watch for start of DVT prophylactic meds once anemia resolved CM working on placement Addendum entered by Thea Torres 04/19/19 13:13: Pharmacy Note Subjective heme test negative per nursing but pt have some hematuria per morning report Objective Tmax-37.6 BP-114/52 other VS okay mag-1.6(up) SCr-2.38(down slightly) h/h-6.9/21.7(down) Assessment amoxicillin continues(day 4 starts this evening) IV mag replacement given Plan transfusion 2 units today, watch h/h watch mag watch for start of DVT prophylactic meds once anemia resolved CM working on placement Original Note: Admission Pharmacy Clinical Review UTI, urinary retention, anemia Code Status DNR/DNI Current Weight 46.1 kg Renally Cleared and Narrow Therapeutic Index Meds Crcl ~12 mL/min amoxicillin currently renally dose, watch GFR citalopram not studied in pts w/Crcl >20 mL/min; use caution QTc Value / Action Taken QTc 452 on 04/14/19 BP Control, Fever BP 157/61 afebrile Electrolytes reviewed Cl 109 mag 0.9 IV replacement given DVT Prophylaxis none Opiate Usage / Scheduled Bowel Regimen Ordered no/PRN Plt/SCr for Heparin / Enoxaparin plt 257 SCr 2.99 INR for Warfarin n/a H/H stable, WBC/Bands h/h 7.7/24.5 WBC 8.44 Antibiotic appropriateness amoxicillin for UTI, growing Enterococcus faecalis susceptible to penicillins Cultures and Sensitivities urine cultures- grew E.faecalis 04/14; grew gram positive aida 04/17 Surgical ABX d/c within 24 hr n/a DM control / Insulin Dosing Bg 99 none Heart Failure (Check EF%) (ANA's, B-Block, Diuretics) none IV to PO Switch n/a Home Meds Reviewed separate admin of levothyroxine and ferrous sulfate multiple QTc prolonging meds: citalopram, quetiapine, loperamide Home Meds Not Ordered ascorbic acid, aspirin, cyanocobalamin, loperamide, nystatin Comments home med list was not updated
[2019-04-18] MEDS: Atorvastatin 40 MG TAB PO (19:39)
[2019-04-18] MEDS: QUEtiapine 25 MG TAB 12.5 MG PO (19:40)
[2019-04-19] VITALS (11 sets, daily range): BP systolic 110–160; BP diastolic 50–75; PULSE 75–88; RESP 15–18; TEMP 37–37.6; O2SAT 98–100
[2019-04-19] MEDS: Normal Saline 1,000 ML 100 ML IV (02:03)
[2019-04-19] MEDS: Levothyroxine 100 MCG TAB PO (05:05)
[2019-04-19] MEDS: Citalopram 10 MG TAB PO (05:05)
[2019-04-19 07:08] LABS: Anion Gap 11.7 mmol/L (3-11); BUN 51 mg/dL (7-18); CO2 16.3 mmol/L (21.0-32.0); CREATININE 2.38 mg/dL (0.55-1.02); Calcium 8.2 mg/dL (8.5-10.1); Chloride 113 mmol/L (98-107); Estimated GFR 19.93 (mL/min/1.73m2); Glucose 128 mg/dL (74-106); Magnesium 1.6 mg/dL (1.8-2.4); Sodium 141 mmol/L (136-145)
[2019-04-19 07:14] LABS: HCT 21.7 % (36.0-46.0); Mean Corp. HGB Concentration 31.8 g/dL (32.0-36.0); Mean Corpuscular Hemoglobin 27.6 pg (27.0-33.0); Mean Corpuscular Volume 86.8 fL (80-95); Mean Platelet Volume 10.3 fL (8.0-11.0); Platelet Count 263 x1000/uL (130-400); RBC Distribution Width 12.8 % (11.7-14.6)
[2019-04-19 07:22] LABS: HGB 6.9 g/dL (12.0-15.5)
[2019-04-19] MEDS: Ferrous Sulfate 325 MG TAB PO ×2 (08:14→19:51)
[2019-04-19] MEDS: Amoxicillin 500 MG CAP PO ×2 (08:14→19:51)
[2019-04-19] MEDS: Folic Acid 1 MG TAB PO (08:14)
[2019-04-19] MEDS: Pantoprazole 40 MG TABCR PO (08:15)
[2019-04-19] MEDS: MAGNESIUM SULFATE 4 GM/100 ML BAG IVPB (09:36)
--- NOTE | 2019-04-19 10:05 | PDOC.CMPRO ---
Care Management Progress Note CM rec'd call from Catalina Christian; RNCC inquiring as to DPOA paperwork and APS report status. [employer] provided copy of DPOA paperwork and relayed information from [employer] [facility] stating APS report was not accepted for investigation. Catalina faxed paperwork to [employer] to permit uploading to electronic chart.
--- NOTE | 2019-04-19 10:59 | W.PM.PROGNOT ---
Date of Service Date of service: 04/19/19 Time of Service: 10:59 Assessment and Plan Assessment and plan (1) UTI (urinary tract infection): Start date: 04/19/19 Start time: 11:02 Status: Acute Assessment and plan: Urine culture growing Enterococcus faecalis. She has been retaining urine. Continue bladder scans every 6 hours and cath for residual greater than 300. Patient would benefit from lopez catheter, however given her mental state, it would not be appropriate, concern that she would pull at catheter and rip it out. Continue amoxicillin. Qualifiers: Urinary tract infection type: site unspecified (2) Acute kidney injury (nontraumatic): Start date: 04/19/19 Start time: 11:03 Status: Acute Assessment and plan: CLAUDIA resolved. Patient appears to be at baseline creatinine 2.38. Baseline range appears 2.4-2.6, continue to monitor. D/C fluids. (3) Dementia: Start date: 04/19/19 Start time: 11:06 Status: Chronic Assessment and plan: With recent increased agitation. Treat urinary tract infection. Continue Seroquel. Care management is working on placement. Qualifiers: Dementia type: vascular dementia Dementia behavioral disturbance: with behavioral disturbance Qualified Code(s): F01.51 - Vascular dementia with behavioral disturbance (4) Agitation: Start date: 04/19/19 Start time: 11:06 Status: Acute Assessment and plan: Dementia with agitation, continue Seroquel as above. (5) Multiple wounds of skin: Start date: 04/19/19 Start time: 11:06 Status: Acute Assessment and plan: Continue zinc, A& D and clotrimazole cream to rita-area. Continue dressing changes. (6) Anemia: Start date: 04/19/19 Start time: 11:06 Status: Chronic Assessment and plan: Her hemoglobin dropped to 6.9 despite negative heme stools. Will transfuse 2 units, continue Iron BID. Monitor H/H 6 hours after transfusion. Qualifiers: Anemia type: iron deficiency Iron deficiency anemia type: unspecified iron deficiency Qualified Code(s): D50.9 - Iron deficiency anemia, unspecified (7) DVT prophylaxis: Start date: 04/19/19 Start time: 11:07 Status: Acute Assessment and plan: Hold off on chemical DVT prophylaxis in the setting of anemia. Teds and SCDs for mechanical DVT prophylaxis (8) Discharge planning issues: Start date: 04/19/19 Start time: 11:07 Status: Acute Assessment and plan: She is a DNR/DNI. Discussed transition to acute care with her daughter. Friend Meghan is DPOA Care management is working on placement for her. This case was discussed with Dr. Demarco who is in agreement. Subjective Subjective Patient reports: other Interval history since last seen: Ms. Marin is oriented only to self. She appears pale. H/H at 6.9 and 21.7 will transfuse 2 units PRBC and recheck h/h 6 hours post transfusion. Does not appear in any acute distress. 1:1 sitter. Exam Narrative Exam Narrative: General: 74-year-old female, appears younger than stated age, sitting up in chair. Smiling and pleasant. Answers questions with I don't know HEENT: Normocephalic, atraumatic, pupils are symmetrical and round, mucous membranes moist. Neck: Supple, no JVD. Cardiovascular: Heart has regular rate and rhythm, no murmur appreciated. Respiratory: Respirations appear even and unlabored, lung sounds clear to auscultation bilaterally. GI: Normoactive bowel sounds throughout, abdomen is soft, nontender on palpation, nondistended. Extremities: No clubbing, cyanosis or edema. Pedal pulses are palpable bilaterally. Objective Objective Clinical Data: Abnormal lab results 04/19/19 04/19/19 04/19/19 Range/Units 06:48 06:48 08:11 RBC 2.50 L (4.00-5.20) m/cumm Hgb 6.9 L* (12.0-15.5) g/dL Hct 21.7 L (36.0-46.0) % MCHC 31.8 L (32.0-36.0) g/dL Chloride 113 H (98-107) mmol/L Carbon Dioxide 16.3 L (21.0-32.0) mmol/L Anion Gap 11.7 H (3-11) mmol/L BUN 51 H (7-18) mg/dL Creatinine 2.38 H (0.55-1.02) mg/dL Glucose 128 H (74-106) mg/dL Calcium 8.2 L (8.5-10.1) mg/dL Magnesium 1.6 L (1.8-2.4) mg/dL Crossmatch See Detail Vital Signs Temperature 37.1 C 04/19/19 04:38 Temperature Source Tympanic 04/19/19 04:38 Pulse 85 04/19/19 04:38 Pulse Rhythm Regular 04/19/19 08:30 Respiratory Rate 17 04/19/19 04:38 Respiratory Effort 04/19/19 08:30 Respiratory Depth Normal 04/19/19 08:30 Respiratory Pattern Normal 04/19/19 08:30 Blood Pressure 110/50 L 04/19/19 04:38 Pulse Oximetry 98 04/19/19 04:38 Oxygen Delivery Method Room Air 04/19/19 04:38 Oxygen Flow Rate 0 04/19/19 04:38 Pain Level 0 04/19/19 04:38 Intake & Output 04/18/19 04/18/19 04/19/19 11:59 23:59 11:59 Intake Total 1183.333 / 3603.333 2420 / 3603.333 1758.333 / 1758.333 Output Total 701 / 2306 1605 / 2306 800 / 800 Balance 482.333 / 1297.333 815 / 1297.333 958.333 / 958.333 Weight 46.1 kg 48.8 kg Intake: IV 823.333 / 2643.333 1820 / 2643.333 908.333 / 908.333 Oral 360 / 960 600 / 960 850 / 850 Output: Urine 700 / 2150 1450 / 2150 800 / 800 Post Void Residual 155 / 155 Stool Other: Urine Color Yellow Urine Appearance Clear Urine Odor None Comment small incontinent void when she stood up cathed for 800 COULD NOT CONVINCE PT TO TRY TO VOID. BLADDER SCANNED FOR 425, 427 AND 475. STRAIGHT CATH'D FOR 800CC URINE. Stool Occult Blood Negative Negative Stool Size Moderate Smear Large Stool Characteristics Soft Soft Soft Brown Brown Nicholas Nicholas Voiding Methods Incontinent Incontinent Laboratory Results WBC 8.60 k/cumm (4.4-10.8) 04/19/19 06:48 RBC 2.50 m/cumm (4.00-5.20) L 04/19/19 06:48 Hgb 6.9 g/dL (12.0-15.5) L* 04/19/19 06:48 Hct 21.7 % (36.0-46.0) L 04/19/19 06:48 MCV 86.8 fL (80-95) 04/19/19 06:48 MCH 27.6 pg (27.0-33.0) 04/19/19 06:48 MCHC 31.8 g/dL (32.0-36.0) L 04/19/19 06:48 RDW 12.8 % (11.7-14.6) 04/19/19 06:48 Plt Count 263 x1000/uL (130-400) 04/19/19 06:48 MPV 10.3 fL (8.0-11.0) 04/19/19 06:48 Sodium 141 mmol/L (136-145) 04/19/19 06:48 Potassium 4.0 mmol/L (3.5-5.1) 04/19/19 06:48 Chloride 113 mmol/L (98-107) H 04/19/19 06:48 Carbon Dioxide 16.3 mmol/L (21.0-32.0) L 04/19/19 06:48 Anion Gap 11.7 mmol/L (3-11) H 04/19/19 06:48 BUN 51 mg/dL (7-18) H 04/19/19 06:48 Creatinine 2.38 mg/dL (0.55-1.02) H 04/19/19 06:48 Estimated GFR/1.73 m2 19.93 (mL/min/1.73m2) 04/19/19 06:48 Glucose 128 mg/dL (74-106) H 04/19/19 06:48 Calcium 8.2 mg/dL (8.5-10.1) L 04/19/19 06:48 Magnesium 1.6 mg/dL (1.8-2.4) L 04/19/19 06:48 Patient ABO/Rh B Positive 04/19/19 08:11 Antibody Screen Negative 04/19/19 08:11 Crossmatch See Detail 04/19/19 08:11
[2019-04-19] MEDS: Normal Saline Flush 10 ML SYR IVP (11:54)
[2019-04-19] MEDS: Acetaminophen 325 MG TAB 650 MG PO (14:38)
[2019-04-19] MEDS: diphenhydrAMINE 25 MG CAP PO (14:38)
[2019-04-19] MEDS: Atorvastatin 40 MG TAB PO (19:50)
[2019-04-19] MEDS: QUEtiapine 25 MG TAB 12.5 MG PO (19:51)
[2019-04-20 02:10] VITALS: BP 116/60; PULSE 84; RESP 17; TEMP 36.7; O2SAT 98
[2019-04-20 02:30] LABS: HCT 29.6 % (36.0-46.0); HGB 9.7 g/dL (12.0-15.5)
[2019-04-20] MEDS: Citalopram 10 MG TAB PO (06:18)
[2019-04-20] MEDS: Levothyroxine 100 MCG TAB PO (06:18)
[2019-04-20 07:15] VITALS: BP 128/56; PULSE 80; RESP 16; TEMP 36.8; O2SAT 97
[2019-04-20 07:45] LABS: HCT 30.5 % (36.0-46.0); Mean Corp. HGB Concentration 32.8 g/dL (32.0-36.0); Mean Corpuscular Hemoglobin 28.5 pg (27.0-33.0); Mean Corpuscular Volume 86.9 fL (80-95); Mean Platelet Volume 10.7 fL (8.0-11.0); Platelet Count 263 x1000/uL (130-400); RBC 3.51 m/cumm (4.00-5.20); RBC Distribution Width 13.6 % (11.7-14.6); White Blood Cell Count 8.91 k/cumm (4.4-10.8)
[2019-04-20 08:01] LABS: Anion Gap 12.6 mmol/L (3-11); BUN 49 mg/dL (7-18); CO2 17.4 mmol/L (21.0-32.0); CREATININE 2.25 mg/dL (0.55-1.02); Calcium 8.3 mg/dL (8.5-10.1); Chloride 113 mmol/L (98-107); Estimated GFR 21.26 (mL/min/1.73m2); Glucose 97 mg/dL (74-106); Magnesium 2.3 mg/dL (1.8-2.4); Potassium 4.2 mmol/L (3.5-5.1); Sodium 143 mmol/L (136-145)
[2019-04-20] MEDS: Pantoprazole 40 MG TABCR PO (08:12)
[2019-04-20] MEDS: Ferrous Sulfate 325 MG TAB PO (08:13)
[2019-04-20] MEDS: Folic Acid 1 MG TAB PO (08:13)
[2019-04-20] MEDS: Amoxicillin 500 MG CAP PO (08:13)
--- NOTE | 2019-04-20 11:53 | W.PM.PROGNOT ---
Date of Service Date of service: 04/20/19 Time of Service: 11:53 Assessment and Plan Assessment and plan (1) UTI (urinary tract infection): Start date: 04/20/19 Start time: 13:40 Status: Acute Assessment and plan: Continues to need cath q 6 hours. Will try tamulosin for CUR, Day 5 of amoxicillin. Urine culture grew enterococcus faecalis, Will repeat u/a. Qualifiers: Urinary tract infection type: site unspecified (2) Acute kidney injury (nontraumatic): Start date: 04/20/19 Start time: 13:52 Status: Acute Assessment and plan: CLAUDIA resolved. Patient appears to be at baseline creatinine 2.25. (3) Dementia: Start date: 04/20/19 Start time: 13:53 Status: Chronic Assessment and plan: With recent increased agitation. Treat urinary tract infection. Continue Seroquel. Care management is working on placement. Palliative has been consulted as well. Qualifiers: Dementia type: vascular dementia Dementia behavioral disturbance: with behavioral disturbance Qualified Code(s): F01.51 - Vascular dementia with behavioral disturbance (4) Agitation: Start date: 04/20/19 Start time: 13:53 Status: Acute Assessment and plan: Dementia with agitation, continue Seroquel as above. Not as agitated today (5) Multiple wounds of skin: Start date: 04/20/19 Start time: 13:53 Status: Acute Assessment and plan: Continue zinc, A& D and clotrimazole cream to rita-area. Continue dressing changes. (6) Anemia: Start date: 04/20/19 Start time: 13:53 Status: Chronic Assessment and plan: Improved. H/h 10.0 and 30.5. continue to monitor. Continue ferrous sulfate BID Qualifiers: Anemia type: iron deficiency Iron deficiency anemia type: unspecified iron deficiency Qualified Code(s): D50.9 - Iron deficiency anemia, unspecified (7) Eschar of toe: Start date: 04/20/19 Start time: 13:54 Status: Acute Assessment and plan: Great toe with erythema and eschar. Will check CRP in am. Consult Dr. Farrar. Wound consulted. (8) DVT prophylaxis: Start date: 04/20/19 Start time: 13:55 Status: Acute Assessment and plan: Hold off on chemical DVT prophylaxis in the setting of anemia and hematuria. Teds and SCDs for mechanical DVT prophylaxis (9) Discharge planning issues: Start date: 04/20/19 Start time: 13:55 Status: Acute Assessment and plan: She is a DNR/DNI. Discussed transition to acute care with her daughter. Friend Meghan is DPOA Care management is working on placement for her. This case was discussed with Dr. Demarco who is in agreement. Subjective Subjective Interval history since last seen: Continues to be confused. 1:1 sitter in room. Great toe appears to be worse in appearance then on admission. Wound consult placed. Podiatry consult placed. Will hold off on treating with antibiotics at this time until seen by podiatry as patient becomes easily agitated and uncooperative. Exam Narrative Exam Narrative: General: 74-year-old female, appears younger than stated age, sitting up in chair. HEENT: Normocephalic, atraumatic, pupils are symmetrical and round, mucous membranes moist. Neck: Supple, no JVD. Cardiovascular: Heart has regular rate and rhythm, no murmur appreciated. Respiratory: Respirations appear even and unlabored, lung sounds clear to auscultation bilaterally. GI: Normoactive bowel sounds throughout, abdomen is soft, nontender on palpation, nondistended. Extremities: No clubbing, cyanosis or edema. Pedal pulses are palpable bilaterally. Great toe with erythema a eschar. Worsening since admission Objective Objective Clinical Data: Abnormal lab results 04/19/19 04/20/19 04/20/19 Range/Units 08:11 02:20 07:14 RBC (4.00-5.20) m/cumm Hgb 9.7 L D (12.0-15.5) g/dL Hct 29.6 L D (36.0-46.0) % Chloride 113 H (98-107) mmol/L Carbon Dioxide 17.4 L (21.0-32.0) mmol/L Anion Gap 12.6 H (3-11) mmol/L BUN 49 H (7-18) mg/dL Creatinine 2.25 H (0.55-1.02) mg/dL Calcium 8.3 L (8.5-10.1) mg/dL Crossmatch See Detail 04/20/19 Range/Units 07:14 RBC 3.51 L (4.00-5.20) m/cumm Hgb 10.0 L (12.0-15.5) g/dL Hct 30.5 L (36.0-46.0) % Chloride (98-107) mmol/L Carbon Dioxide (21.0-32.0) mmol/L Anion Gap (3-11) mmol/L BUN (7-18) mg/dL Creatinine (0.55-1.02) mg/dL Calcium (8.5-10.1) mg/dL Crossmatch Vital Signs Temperature 36.8 C 04/20/19 07:15 Temperature Source Tympanic 04/20/19 07:15 Pulse 80 04/20/19 07:15 Pulse Rhythm Regular 04/20/19 08:00 Respiratory Rate 16 04/20/19 07:15 Respiratory Effort Non-Labored 04/20/19 08:00 Respiratory Depth Normal 04/20/19 08:00 Respiratory Pattern Normal 04/20/19 08:00 Blood Pressure 128/56 L 04/20/19 07:15 Pulse Oximetry 97 04/20/19 07:15 Oxygen Delivery Method Room Air 04/20/19 07:15 Oxygen Flow Rate 0 04/20/19 07:15 Pain Level 0 04/20/19 07:15 Intake & Output 04/19/19 04/19/19 04/20/19 11:59 23:59 11:59 Intake Total 1758.333 / 2758.333 1000 / 2758.333 790 / 790 Output Total 800 / 800 0 / 800 1250 / 1250 Balance 958.333 / 5671.245 1736 / 1958.333 -460 / -460 Weight 48.8 kg 48.5 kg Intake: IV 908.333 / 908.333 Oral 850 / 850 790 / 790 Blood Product 1000 / 1000 Rbc Leuko Reduced Unit 300 / 300 [id number] Rbc Leuko Reduced Unit 700 / 700 [id number] Output: Urine 800 / 800 0 / 800 600 / 600 Post Void Residual 650 / 650 Other: Urine Appearance Cloudy Comment COULD NOT CONVINCE PT TO TRY TO VOID. BLADDER SCANNED FOR 425, 427 AND 475. STRAIGHT CATH'D FOR 800CC URINE. patient incontinent small amount while performing straight cath. Straight in and out catheterization for approximately 600cc of urine. Difficult to ascertain due to urine incontinence and urine spillage during catheterization procedure. Stool Occult Blood Negative Negative Stool Size Large Small Large Stool Characteristics Soft Soft Soft Brown Brown Brown Nicholas Nicholas Voiding Methods Incontinent Incontinent Laboratory Results WBC 8.91 k/cumm (4.4-10.8) 04/20/19 07:14 RBC 3.51 m/cumm (4.00-5.20) L 04/20/19 07:14 Hgb 10.0 g/dL (12.0-15.5) L 04/20/19 07:14 Hct 30.5 % (36.0-46.0) L 04/20/19 07:14 MCV 86.9 fL (80-95) 04/20/19 07:14 MCH 28.5 pg (27.0-33.0) 04/20/19 07:14 MCHC 32.8 g/dL (32.0-36.0) 04/20/19 07:14 RDW 13.6 % (11.7-14.6) 04/20/19 07:14 Plt Count 263 x1000/uL (130-400) 04/20/19 07:14 MPV 10.7 fL (8.0-11.0) 04/20/19 07:14 Sodium 143 mmol/L (136-145) 04/20/19 07:14 Potassium 4.2 mmol/L (3.5-5.1) 04/20/19 07:14 Chloride 113 mmol/L (98-107) H 04/20/19 07:14 Carbon Dioxide 17.4 mmol/L (21.0-32.0) L 04/20/19 07:14 Anion Gap 12.6 mmol/L (3-11) H 04/20/19 07:14 BUN 49 mg/dL (7-18) H 04/20/19 07:14 Creatinine 2.25 mg/dL (0.55-1.02) H 04/20/19 07:14 Estimated GFR/1.73 m2 21.26 (mL/min/1.73m2) 04/20/19 07:14 Glucose 97 mg/dL (74-106) 04/20/19 07:14 Calcium 8.3 mg/dL (8.5-10.1) L 04/20/19 07:14 Magnesium 2.3 mg/dL (1.8-2.4) 04/20/19 07:14 Patient ABO/Rh B Positive 04/19/19 08:11 Antibody Screen Negative 04/19/19 08:11 Crossmatch See Detail 04/19/19 08:11
[2019-04-20] MEDS: Tamsulosin 0.4 MG CAPCR PO (11:59)
--- NOTE | 2019-04-20 13:39 | WOUNDCARE ---
Wound Care Report Pt is a74 year old female seen for UTI and urinary retention. Chart reviewed, including H&P, recent labs, and vital signs, and other providers? reports. Medical Hx and labs pertinent to wound healing: per chart, possible history of Diabetes. Wound Hx if applicable- Wound number 1, Right great toe, Possible DFU: Wound Assessment Findings Shape- Oval, possible DFU. Measurements 0.9 X 0.7 X >0.2. Full thickness Wound bed 50% black eschar, 50% ashby eschar. Adherence of the tissues Tissues are firmly adherent. Wound Edges Definition defined edges. Attachment attached edges. Surrounding tissue Area surrounding the wound is 1.1 cm diameter deep pink. Area around this is normal skin tone. Exudate amount & type No exudate. Odor none. Indicators of infection present? Erythema, edema, change in color, increased pain. Patients Mobility status Patient suffers with dementia and is an increased fall risk. Continence Management plan Patient is incontinent of bowel, and has urinary retention. Briefs and incontinence care for bowel management. And patient is bladder scanned straight catheterized for urinary retention. Circulatory status pulses are present in all 4 extremities, capillary refill is less than 3 seconds. Pain- Area of wound is painful to touch. Medications altering healing- None. Current Topical Treatment plan Interventions for pressure redistribution Non-slip socks are applied. Recommendations: Cleanse daily with Anasept wound cleanser. Pat dry. Apply 1/8 inch thick layer of Anasept gel to the wound bed, apply thin layer of Anasept gel to the red area around the wound bed. Apply skin prep to the rita-wound skin. Cover with a Mepilex 4X4 cut in half. Change daily or PRN if soiled or dislodged. Thank you for the consult.
[2019-04-20 17:36] LABS: Bilirubin Negative (Negative); Blood Moderate (Negative); Clarity Cloudy (Clear); Glucose Negative (Negative); Ketones Negative (Negative); Leukocyte Esterase Moderate (Negative); Nitrite Negative (Negative); Specific Gravity 1.015 (1.005-1.025); Urobilinogen 0.2 EU/dL (Up TO 0.2); pH 5.5 (5-8)
[2019-04-20 17:43] LABS: WBC >50 HPF (0-5)
[2019-04-20 17:47] LABS: C & S Indicated? Yes
--- NOTE | 2019-04-20 18:01 | PDOC.CMPRO ---
Care Management Progress Note S/O: Meghan is sitting up in her chair, one on one support present. Meghan engages well with this designer/writer and is smiling and provides appropriate verbal responses. She complains about her one-on-one and is pulling at her IV. CM supported Meghan to put on her long sleeve flannel shirt, which she was happy about and reported its beautiful, I love you. She remains pleasant in interaction and smiles often at this designer/writer and other staff though has the opposite presentation with additional staff. CM will connect with Meghan's daughter, Meghan (DPOA) CM continues to follow. A: 74 year old female admitted to [facility] inpatient from [facility] 04/17/19 for UTI, Urinary Retention, Anemia P: Meghan will transition back to B when ready per [id number]. CM continues to follow and support discharge planning considerations.
[2019-04-20 19:46] VITALS: BP 130/58; PULSE 78; RESP 16; TEMP 36.6; O2SAT 97
[2019-04-20] MEDS: QUEtiapine 25 MG TAB 12.5 MG PO (20:57)
[2019-04-20 23:54] VITALS: BP 123/56; PULSE 75; RESP 18; TEMP 37.5; O2SAT 98
[2019-04-21] MEDS: Levothyroxine 100 MCG TAB PO (05:18)
[2019-04-21] MEDS: Citalopram 10 MG TAB PO (05:18)
[2019-04-21 06:34] LABS: HCT 31.1 % (36.0-46.0); HGB 10.1 g/dL (12.0-15.5); Mean Corp. HGB Concentration 32.5 g/dL (32.0-36.0); Mean Corpuscular Hemoglobin 28.1 pg (27.0-33.0); Mean Corpuscular Volume 86.4 fL (80-95); Platelet Count 304 x1000/uL (130-400); RBC Distribution Width 13.7 % (11.7-14.6); White Blood Cell Count 7.05 k/cumm (4.4-10.8)
[2019-04-21 06:57] LABS: Anion Gap 11.6 mmol/L (3-11); BUN 48 mg/dL (7-18); C-Reactive Protein 2.26 mg/dL (0.0-0.3); CO2 19.4 mmol/L (21.0-32.0); CREATININE 2.47 mg/dL (0.55-1.02); Calcium 8.7 mg/dL (8.5-10.1); Chloride 111 mmol/L (98-107); Estimated GFR 19.09 (mL/min/1.73m2); Glucose 115 mg/dL (74-106); Potassium 4.2 mmol/L (3.5-5.1); Sodium 142 mmol/L (136-145)
[2019-04-21 07:36] VITALS: BP 148/73; PULSE 64; RESP 17; TEMP 36.9; O2SAT 98
[2019-04-21] MEDS: Folic Acid 1 MG TAB PO (08:24)
[2019-04-21] MEDS: Ferrous Sulfate 325 MG TAB PO ×2 (08:24→19:57)
[2019-04-21] MEDS: Tamsulosin 0.4 MG CAPCR PO (08:24)
[2019-04-21] MEDS: Pantoprazole 40 MG TABCR PO (08:24)
[2019-04-21] MEDS: Ciprofloxacin 500 MG TAB PO (08:24)
--- NOTE | 2019-04-21 09:46 | W.NUTRFU ---
Date of service: 04/21/19 Time of Service: 09:46 Nutritional Follow up NOTE: Meghan continues to self feed at times and other times needs to be fed. Taking glucerna BID for additional calories, meeting nutrient and fluid needs for weight regain at this time. current diet appropriate and well tolerated. Will continue to follow and adjust meal plan as warranted. Time Spent in Nutritional Counseling and Treatment: 0 time spent face to face
--- NOTE | 2019-04-21 10:25 | W.PM.PROGNOT ---
Date of Service Date of service: 04/21/19 Time of Service: 10:25 Assessment and Plan Assessment and plan (1) UTI (urinary tract infection): Start date: 04/21/19 Start time: 10:27 Status: Acute Assessment and plan: Finished a five day course of amoxicillin Po BID, Sensitivity to ampicillin. Started on flomax for CUR, PVR have been less than 300. Qualifiers: Urinary tract infection type: site unspecified (2) Acute kidney injury (nontraumatic): Status: Acute Assessment and plan: CLAUDIA resolved. Patient appears to be at baseline (3) Dementia: Start date: 04/21/19 Start time: 10:31 Status: Chronic Assessment and plan: Working on placement continue seroquel and Qualifiers: Dementia type: vascular dementia Dementia behavioral disturbance: with behavioral disturbance Qualified Code(s): F01.51 - Vascular dementia with behavioral disturbance (4) Agitation: Start date: 04/21/19 Start time: 10:51 Status: Acute Assessment and plan: Dementia with agitation, continue Seroquel as above. Not as agitated today (5) Multiple wounds of skin: Start date: 04/21/19 Start time: 10:51 Status: Acute Assessment and plan: Improving, Continue zinc, A& D and clotrimazole cream to rita-area. Continue dressing changes. Great toe with eschar, podiatry consult. (6) Anemia: Start date: 04/21/19 Start time: 10:51 Status: Chronic Assessment and plan: Improved. H/h 10.0 and 30.5. continue to monitor. Continue ferrous sulfate BID Qualifiers: Anemia type: iron deficiency Iron deficiency anemia type: unspecified iron deficiency Qualified Code(s): D50.9 - Iron deficiency anemia, unspecified (7) Eschar of toe: Start date: 04/21/19 Start time: 10:52 Status: Acute Assessment and plan: Great toe with erythema and eschar. CRP 2.[address] Farrar. Wound consulted. (8) DVT prophylaxis: Start date: 04/21/19 Start time: 10:52 Status: Acute Assessment and plan: Hold off on chemical DVT prophylaxis in the setting of anemia and hematuria. Teds and SCDs for mechanical DVT prophylaxis (9) Discharge planning issues: Start date: 04/21/19 Start time: 10:52 Status: Acute Assessment and plan: She is a DNR/DNI. Discussed transition to acute care with her daughter. She may need swing bed once medically cleared. Care management is working on placement for her. This case was discussed with Dr. Demarco who is in agreement. Subjective Subjective Patient reports: no new complaints Exam Narrative Exam Narrative: General: 74-year-old female, appears younger than stated age, sitting up in chair. HEENT: Normocephalic, atraumatic, pupils are symmetrical and round, mucous membranes moist. Neck: Supple, no JVD. Cardiovascular: Heart has regular rate and rhythm, no murmur appreciated. Respiratory: Respirations appear even and unlabored, lung sounds clear to auscultation bilaterally. GI: Normoactive bowel sounds throughout, abdomen is soft, nontender on palpation, nondistended. Extremities: No clubbing, cyanosis or edema. Pedal pulses are palpable bilaterally. Great toe with erythema a eschar. Worsening since admission Objective Objective Clinical Data: Abnormal lab results 04/20/19 04/21/19 04/21/19 Range/Units 17:05 06:10 06:10 RBC 3.60 L (4.00-5.20) m/cumm Hgb 10.1 L (12.0-15.5) g/dL Hct 31.1 L (36.0-46.0) % Chloride 111 H (98-107) mmol/L Carbon Dioxide 19.4 L (21.0-32.0) mmol/L Anion Gap 11.6 H (3-11) mmol/L BUN 48 H (7-18) mg/dL Creatinine 2.47 H (0.55-1.02) mg/dL Glucose 115 H (74-106) mg/dL C-Reactive Protein 2.26 H (0.0-0.3) mg/dL Urine Protein 30 H (Negative) mg/dL Urine Blood Moderate H (Negative) Ur Leukocyte Esterase Moderate H (Negative) Urine WBC >50 H (0-5) HPF Vital Signs Temperature 36.9 C 04/21/19 07:36 Temperature Source Tympanic 04/21/19 07:36 Pulse 64 04/21/19 07:36 Pulse Rhythm Regular 04/21/19 07:00 Respiratory Rate 17 04/21/19 07:36 Respiratory Effort Non-Labored 04/21/19 07:00 Respiratory Depth Normal 04/21/19 07:00 Respiratory Pattern Normal 04/21/19 07:00 Blood Pressure 148/73 H 04/21/19 07:36 Pulse Oximetry 98 04/21/19 07:36 Oxygen Delivery Method Room Air 04/21/19 07:36 Oxygen Flow Rate 0 04/21/19 07:36 Pain Level 0 04/21/19 07:36 Intake & Output 04/20/19 04/20/19 04/21/19 11:59 23:59 11:59 Intake Total 790 / 1630 840 / 1630 480 / 480 Output Total 1250 / 1800 550 / 1800 Balance -460 / -170 290 / -170 480 / 480 Weight 48.5 kg 47.4 kg Intake: Oral 790 / 1630 840 / 1630 480 / 480 Output: Urine 600 / 600 Post Void Residual 650 / 1200 550 / 1200 Other: Urine Color Yellow Vowinckel Urine Appearance Cloudy Cloudy Purulent Hematuria Urine Odor Strong Comment Straight in and out catheterization for approximately 600cc of urine. Difficult to ascertain due to urine incontinence and urine spillage during catheterization procedure. Patient was incontinent of moderate amount. Linen and gown was soaked and changed unable to measure. Incontinent Stool Occult Blood Negative Negative Stool Size Large Moderate Copious Stool Characteristics Soft Soft Liquid Brown Nicholas Voiding Methods Incontinent Incontinent Incontinent Laboratory Results WBC 7.05 k/cumm (4.4-10.8) 04/21/19 06:10 RBC 3.60 m/cumm (4.00-5.20) L 04/21/19 06:10 Hgb 10.1 g/dL (12.0-15.5) L 04/21/19 06:10 Hct 31.1 % (36.0-46.0) L 04/21/19 06:10 MCV 86.4 fL (80-95) 04/21/19 06:10 MCH 28.1 pg (27.0-33.0) 04/21/19 06:10 MCHC 32.5 g/dL (32.0-36.0) 04/21/19 06:10 RDW 13.7 % (11.7-14.6) 04/21/19 06:10 Plt Count 304 x1000/uL (130-400) 04/21/19 06:10 MPV 10.0 fL (8.0-11.0) 04/21/19 06:10 Sodium 142 mmol/L (136-145) 04/21/19 06:10 Potassium 4.2 mmol/L (3.5-5.1) 04/21/19 06:10 Chloride 111 mmol/L (98-107) H 04/21/19 06:10 Carbon Dioxide 19.4 mmol/L (21.0-32.0) L 04/21/19 06:10 Anion Gap 11.6 mmol/L (3-11) H 04/21/19 06:10 BUN 48 mg/dL (7-18) H 04/21/19 06:10 Creatinine 2.47 mg/dL (0.55-1.02) H 04/21/19 06:10 Estimated GFR/1.73 m2 19.09 (mL/min/1.73m2) 04/21/19 06:10 Glucose 115 mg/dL (74-106) H 04/21/19 06:10 Calcium 8.7 mg/dL (8.5-10.1) 04/21/19 06:10 Magnesium 2.3 mg/dL (1.8-2.4) 04/20/19 07:14 C-Reactive Protein 2.26 mg/dL (0.0-0.3) H 04/21/19 06:10 Urine Color Yellow (Yellow) 04/20/19 17:05 Urine Clarity Cloudy (Clear) 04/20/19 17:05 Urine pH 5.5 (5-8) 04/20/19 17:05 Ur Specific [place] 1.015 (1.005-1.025) 04/20/19 17:05 Urine Protein 30 mg/dL (Negative) H 04/20/19 17:05 Urine Ketones Negative mg/dL (Negative) 04/20/19 17:05 Urine Blood Moderate (Negative) H 04/20/19 17:05 Urine Nitrite Negative (Negative) 04/20/19 17:05 Urine Bilirubin Negative (Negative) 04/20/19 17:05 Urine Urobilinogen 0.2 EU/dL (Up TO 0.2) 04/20/19 17:05 Ur Leukocyte Esterase Moderate (Negative) H 04/20/19 17:05 Urine RBC HPF (0-2) 04/20/19 17:05 Urine WBC >50 HPF (0-5) H 04/20/19 17:05 Ur Epithelial Cells HPF (Negative) 04/20/19 17:05 Urine Crystals Not Applicable 04/20/19 17:05 Urine Bacteria Not Applicable 04/20/19 17:05 Urine Mucus Not Applicable 04/20/19 17:05 Ur Culture Indicated? Yes 04/20/19 17:05 Urine Glucose Negative mg/dL (Negative) 04/20/19 17:05 Patient ABO/Rh B Positive 04/19/19 08:11 Antibody Screen Negative 04/19/19 08:11 Crossmatch See Detail 04/19/19 08:11
--- NOTE | 2019-04-21 15:43 | CHAPLAIN ---
Meghan was sitting up in a chair, keeping an eye on what was going in the hallway. I had a short visit with her. She was pleasant and responded to questions, but was more focused on looking out in the hallway, and less interested in having a conversation with me.
[2019-04-21 15:52] VITALS: BP 138/70; PULSE 60; RESP 16; TEMP 36.5; O2SAT 97
--- NOTE | 2019-04-21 17:40 | CMPROGNOTE_ITS ---
- If Service Date Differs Date of service: 04/21/19 Time of Service: 17:40 Care Management Progress Note S/O: Meghan remains acute today she will transition back to swing bed level of care when medically ready. She continues to be straight cath for urinary retention and was started on Flomax. Meghan is confused but pleasant during CM visit. CM contacted her daughter Meghan is [place] to follow up plan, Meghan states she cannot take her Mom back to [place]. She states she does not have the ability to care for her there. CM reviewed the LTM application with her she will complete via email for CM to submit. Meghan states that she does not know her mothers financials she states that her brother that was living with her destroyed any documentation that might have been. She will plan to complete the application anyway for CM to submit. Meghan remains at [facility] until a safe discharge plan can be determined. Her daughter Meghan agrees verbally to have patient admitted to [facility] when she is medically ready. A; Meghan is a 74 year old female admitted to [facility] from [facility] for anemia and UTI she will transition back to [facility] when medically ready. P: intermediate Medicaid application to be submitted once CM received the completed copy, sent to her daughter today via email. Meghan is unable to transfer to [place] and will need LTC placement locally once a payer source is identified. Meghan's daughter is in control of financials and medical. Pt to transfer to [facility] when appropriate.
--- NOTE | 2019-04-21 19:06 | POCOE_ITS ---
Date of service: 04/21/19 Time of Service: 19:06 History of Present Illness History of Present Illness Chief Complaint: Wound right great toe Narrative: This is a 74-year-old female with multiple comorbidities including type 2 diabetes and dementia chronic renal failure who has a wound on her right great toe which I have been asked to evaluate. She is seen at bedside, she is confused she is marginally cooperative. [facility] Medical History CKD (chronic kidney disease) (Acute) Dementia (Chronic) History of colon cancer (Acute) s/p partial colectomy and reversal of colostomy; no chemotherapy Hypothyroid (Chronic) Vaginal bleeding (Acute) Noted as inpatient at [facility] Surgical History H/O colectomy (Resolved) H/O hysterectomy with oophorectomy (Resolved) Unknown date. Family reports hysterectomy to treat uterine cancer. Social History Smoking/Tobacco Use Status: Former Tobacco Use Alcohol Intake: never Drug use: Never Substance use type: does not use Do you feel safe at home: Yes Do you feel safe in your relationship?: Yes Additional Social history: home she came from was not safe in [place]. Exam Narrative Exam Narrative: Meghan is seen at bedside. Her feet are warm to the touch with pulses easily palpable at the ankle being graded 2/4 bilaterally. No peripheral edema is noted. Her toenails are noted to be yellowed mildly thickened and elongated. Consistent with onychomycosis. No erythema or drainage is observed coming from the nail plates. She has a dry scab overlying the interphalangeal joint of the right great toe. There is localized redness surrounding this but no fernanda cellulitis. There is no fluid accumulations and no drainage appreciated. The scab is dry. She has some superficial abrasions on the anterior littlejohn right more so than left but these are also clean without any signs of infection. Muscle groups are markedly diminished in bulk.n testing was difficult but she is able to flex and extend her feet and toes and avoid examination in her confused state. Neurologically she appears to have protective sensations intact. Impression: Abrasion with dry scab IPJ right hallux Plan: Recommend that we wash her feet daily with soap and water and dry well. Leave her lower extremity wounds open to the air as they are quite superficial and appear to be stable. I would avoid putting shoes on her feet unless she is ambulating. If the wounds change in their appearance or drainage develops I would certainly return for a reevaluation. Thank you for the consultation. Results Last Vital Signs Temp 36.5 C 04/21/19 15:52 Pulse 60 04/21/19 15:52 Resp 16 04/21/19 15:52 BP 138/70 04/21/19 15:52 Pulse Ox 97 04/21/19 15:52 Labs Result diagrams: 04/21/19 06:10 04/21/19 06:10 Labs: Laboratory Results - last 24 hr 04/19/19 04/21/19 04/21/19 Unknown 06:10 06:10 WBC 7.05 RBC 3.60 L Hgb Cancelled 10.1 L Hct Cancelled 31.1 L MCV 86.4 MCH 28.1 MCHC 32.5 RDW 13.7 Plt Count 304 MPV 10.0 Sodium 142 Potassium 4.2 Chloride 111 H Carbon Dioxide 19.4 L Anion Gap 11.6 H BUN 48 H Creatinine 2.47 H Estimated GFR/1.73 m2 19.09 Glucose 115 H Calcium 8.7 C-Reactive Protein 2.26 H
[2019-04-21] MEDS: Atorvastatin 40 MG TAB PO (19:57)
[2019-04-21] MEDS: QUEtiapine 25 MG TAB 12.5 MG PO (19:57)
[2019-04-22] MEDS: Levothyroxine 100 MCG TAB PO (06:24)
[2019-04-22] MEDS: Citalopram 10 MG TAB PO (06:24)
[2019-04-22 06:49] LABS: Anion Gap 11.6 mmol/L (3-11); BUN 50 mg/dL (7-18); CO2 19.4 mmol/L (21.0-32.0); CREATININE 2.33 mg/dL (0.55-1.02); Chloride 110 mmol/L (98-107); Estimated GFR 20.42 (mL/min/1.73m2); Glucose 92 mg/dL (74-106); Potassium 4.1 mmol/L (3.5-5.1); Sodium 141 mmol/L (136-145)
[2019-04-22 07:00] VITALS: BP 117/65; PULSE 73; RESP 16; TEMP 36.1; O2SAT 97
[2019-04-22 07:06] LABS: HCT 37.1 % (36.0-46.0); HGB 12.6 g/dL (12.0-15.5); Mean Corpuscular Volume 85.5 fL (80-95); Mean Platelet Volume 10.5 fL (8.0-11.0); Platelet Count 279 x1000/uL (130-400); RBC 4.34 m/cumm (4.00-5.20); RBC Distribution Width 13.7 % (11.7-14.6); White Blood Cell Count 7.83 k/cumm (4.4-10.8)
[2019-04-22] MEDS: Acetaminophen 325 MG TAB 650 MG PO (08:31)
[2019-04-22] MEDS: Folic Acid 1 MG TAB PO (08:31)
[2019-04-22] MEDS: Pantoprazole 40 MG TABCR PO (08:32)
[2019-04-22] MEDS: Ferrous Sulfate 325 MG TAB PO (08:32)
[2019-04-22] MEDS: Tamsulosin 0.4 MG CAPCR PO (08:32)
[2019-04-22] MEDS: QUEtiapine 25 MG TAB PO (10:45)
--- NOTE | 2019-04-22 10:47 | W.PM.DS.N ---
Date of service: 04/22/19 Time of Service: 10:47 DS: Diagnosis Discharge Diagnosis (1) UTI (urinary tract infection): Status: Resolved (2) Acute kidney injury (nontraumatic): Status: Resolved (3) Dementia: Status: Chronic (4) Agitation: Status: Acute (5) Multiple wounds of skin: Status: Acute (6) Anemia: Status: Chronic (7) Eschar of toe: Status: Acute Discharge Plan Disposition Patient Disposition: [facility] SWING BED LEVEL 1 Condition: Stable Discharge Details Reason For Visit: UTI, URINARY RETENTION, ANEMIA Admit Date/Time: 04/17/19 16:40 Admit Provider: Oziel Jovel Attending Provider: Oziel Jovel Primary Care Provider: Warren Mulligan [facility] Hospital Course: Meghan Marin is a 70-year-old female with a past medical history of dementia, anemia, CVA, chronic kidney disease, [id number] diabetes, hypothyroidism who was brought to the [facility] emergency department on 04/14/2019 due to agitation and aggression with her family at home. She had reportedly become increasingly more agitated over the month prior to her presentation. She was initially admitted on to swing bed status at that time pending placement. During her swing bed stay she was found to have a urinary tract infection and was initiated on amoxicillin. She was noted to have anemia with a hemoglobin of 7.9 at the time of her admission. Upon recheck of her labs, she was found to have worsening renal function. She was noted to be retaining urine and required intermittent catheterizations. Due to the need for closer monitoring, she transition to acute status on 04/17/2019. She was given hydration with IV fluids, she remained on antibiotics, her renal function was monitored daily as well as her anemia. Her stools were assessed for occult blood. She had continuous bladder scans with intermittent catheterizations. During her acute hospitalization, she completed her course of antibiotics. Her renal function improved with IV fluids and the IV fluids were discontinued. Her hemoglobin improved from a low of 7.7 to 12.6 on the day of discharge. Her stools were heme-negative. Her agitation improved. She continues to require intermittent catheterizations, urology consulted for recommendations. Physical therapy and Occupational Therapy were unable to work with her due to her inability to follow directions due to her advanced dementia. She was seen by Dr. Farrar for a wound on her right great toe. Podiatry made recommendations for washing her feet daily with soap and water, dry well, leave the wounds open to air and avoid shoes unless she is ambulating. At this time, she no longer requires acute level care. She will transition to swing bed level of care while care management continues to work on finding placement for her. Home Meds and New Rx's Prescriptions: No Action loperamide 2 mg Capsule 2 mg PO BID RF: 0 levothyroxine 100 mcg Tablet 100 mcg PO DAILY RF: 0 nystatin 100,000 unit/gram Powder 1 applic TOPICAL BID RF: 0 quetiapine 25 mg Tablet 12.5 mg PO HS Qty: 0 RF: 0 atorvastatin [Lipitor] 40 mg Tablet 40 mg PO QPM Qty: 0 RF: 0 ascorbic acid (vitamin C) [Vitamin C] 500 mg Tablet 500 mg PO BID Qty: 0 RF: 0 pantoprazole 40 mg Tablet,Delayed Release (Dr/Ec) 40 mg PO DAILY@0730 Qty: 0 RF: 0 cyanocobalamin (vitamin B-12) 1,000 mcg/mL Solution 1,000 mcg IM/SC DAILY Qty: 0 RF: 0 ferrous sulfate 325 mg (65 mg iron) Tablet 325 mg PO BID Qty: 0 RF: 0 aspirin 81 mg Tablet,Chewable 81 mg PO DAILY Qty: 0 RF: 0 folic acid 1 mg Tablet 1 mg PO QAM Qty: 0 RF: 0 citalopram 10 mg Tablet 10 mg PO DAILY AM RF: 0 Discharge Instructions Instructions: Urinary Tract Infection in Women (DC) Activity:: Activity as Tolerated Equipment/Supplies:: No Equipment Needed Diet:: Carb counting/heart healthy diet Discharge Orders Discharge Orders: Discharge Order (Routine); Ordered 04/22/19 Ordered By: Betty Carter DS: Summary Status at Discharge Functional status at discharge: uses cane/walker Overall status at discharge: patient is back to baseline Mental Status: mental status grossly normal (advanced dementia) Speech and Movement: speech and movement normal (limited speech, baseline) Mood: congruent mood Affect: normal affect Exam Narrative Exam Narrative: General: 74-year-old female, appears younger than stated age, sitting up in the chair. Smiling and pleasant. Answers questions with yes and it's fine. HEENT: Normocephalic, atraumatic, pupils are symmetrical and round, mucous membranes moist. Neck: Supple, no JVD. Cardiovascular: Heart has regular rate and rhythm, 1/6 systolic murmur noted at LSB. Respiratory: Respirations appear even and unlabored, lung sounds clear to auscultation bilaterally. GI: Normoactive bowel sounds throughout, abdomen is soft, nontender on palpation, nondistended. Extremities: No clubbing, cyanosis or edema. Pedal pulses are palpable bilaterally. Right great toe with superficial wound with echar, mild erythema surrounding site, no drainage. Psych Mental Status: mental status grossly normal (advanced dementia) Speech and Movement: speech and movement normal (limited speech, baseline) Mood: congruent mood Affect: normal affect DS: Data Vitals/I&O Vitals and I&O: Vital Signs Temperature 36.1 C L 04/22/19 07:00 Temperature Source Temporal Artery Scan 04/22/19 07:00 Pulse 73 04/22/19 07:00 Pulse Rhythm Regular 04/22/19 02:03 Respiratory Rate 16 04/22/19 07:00 Respiratory Effort Non-Labored 04/22/19 02:03 Respiratory Depth Normal 04/22/19 02:03 Respiratory Pattern Normal 04/22/19 02:03 Blood Pressure 117/65 04/22/19 07:00 Pulse Oximetry 97 04/22/19 07:00 Oxygen Delivery Method Room Air 04/22/19 07:00 Oxygen Flow Rate 0 04/22/19 07:00 Pain Level 0 04/22/19 07:00 Intake & Output 04/21/19 04/21/19 04/22/19 11:59 23:59 11:59 Intake Total 480 / 840 360 / 840 Output Total 325 / 796 471 / 796 1069 / 1069 Balance 155 / 44 -111 / 44 -1069 / -1069 Weight 47.4 kg Intake: Oral 480 / 840 360 / 840 Output: Urine 325 / 775 450 / 775 950 / 950 Post Void Residual 119 / 119 Other: Urine Color Pale Urine Appearance Clear Urine Odor Strong Comment cathed for 325 incontinent prior to str. cath x 2. in large amount of urine. incontinent void, PVR 349, in and out 16F cathed for 400cc's , cloudy yellow with sediment. Stool Occult Blood Negative Negative Stool Size Copious Large Moderate Stool Characteristics Liquid Liquid Liquid Brown Black Voiding Methods Incontinent Data Completed and Pending Labs on day of discharge: Labs from last 24 hours 04/22/19 04/22/19 04/19/19 06:20 06:20 Unknown WBC 7.83 RBC 4.34 Hgb 12.6 D Cancelled Hct 37.1 Cancelled MCV 85.5 MCH 29.0 MCHC 34.0 RDW 13.7 Plt Count 279 MPV 10.5 Sodium 141 Potassium 4.1 Chloride 110 H Carbon Dioxide 19.4 L Anion Gap 11.6 H BUN 50 H Creatinine 2.33 H Estimated GFR/1.73 m2 20.42 Glucose 92 Calcium 9.0 PFSH Medical History CKD (chronic kidney disease) (Acute) Dementia (Chronic) History of colon cancer (Acute) s/p partial colectomy and reversal of colostomy; no chemotherapy Hypothyroid (Chronic) Vaginal bleeding (Acute) Noted as inpatient at [facility] Surgical History H/O colectomy (Resolved) H/O hysterectomy with oophorectomy (Resolved) Unknown date. Family reports hysterectomy to treat uterine cancer. Social History Smoking/Tobacco Use Status: Former Tobacco Use Alcohol Intake: never Drug use: Never Substance use type: does not use Do you feel safe at home: Yes Do you feel safe in your relationship?: Yes Additional Social history: home she came from was not safe in [place].
--- NOTE | 2019-04-22 17:26 | CMPROGNOTE_ITS ---
- If Service Date Differs Date of service: 04/22/19 Time of Service: 17:26 Care Management Progress Note S/O: Meghan is transitioning to SB1 today she remains confused and incontinent she is requiring straight cath for urinary retention. She did transition to oral abx. CM submitted the LTM application today her daughter verbally agrees to SB1 and CM emails the contract waiting for the return. NEMO continues to work with the [facility] for Order Entry Clerk Placement and reviewed with sheetmetal worker at the [facility] today. Meghan's daughter agrees with the plan she does not have the intention to bring Meghan in her home in [place]. CM faxed the application as well as mailed a physical copy. Will follow up with Medicaid rat exterminator at the end of the week. A: Meghan is a 74 year old female admitted to swing bed with symptoms r/t her dementia, she was also found to have anemia, and UTI and persistent incontinen ce. P: Meghan will remain here at [facility] until a safe discharge plan can be identified. She will transition to SB1 today for longterm care. NEMO has reached out to senior team to review options for disposition including the [facility] senior team. longterm Medicaid application has been submitted awaiting review. disposition pending, CM to continue to provide support to patient discharge planning.
--- NOTE | 2019-04-22 17:26 | PDOC.CMPRO ---
- If Service Date Differs Date of service: 04/22/19 Time of Service: 17:26 Care Management Progress Note S/O: Meghan is transitioning to SB1 today she remains confused and incontinent she is requiring straight cath for urinary retention. She did transition to oral abx. CM submitted the LTM application today her daughter verbally agrees to SB1 and CM emails the contract waiting for the return. CM continues to work with the [facility] for Automobile Relocation Engineer Placement and reviewed with harvest worker at the [facility] today. Meghan's daughter agrees with the plan she does not have the intention to bring Meghan in her home in [place]. CM faxed the application as well as mailed a physical copy. Will follow up with Medicaid long term care administrator at the end of the week. A: Meghan is a 74 year old female admitted to swing bed with symptoms r/t her dementia, she was also found to have anemia, and UTI and persistent incontinence. P: Meghan will remain here at [facility] until a safe discharge plan can be identified. She will transition to 1 today for long term care. CM has reached out to senior team to review options for disposition including the [facility] senior team. penitentiary Medicaid application has been submitted awaiting review. disposition pending, CM to continue to provide support to patient discharge planning.
== END 2019-04-22 11:05 | disposition swing bed (61) | DRG 690 ==
PROVIDERS: Nurse Practitioner; Nurse Practitioner Family; Admitting Provider Family Medicine; PCP Family Medicine; Visit Provider Family Medicine
DX: N39.0 Urinary tract infection, site not specified (principal); N17.9 Acute kidney failure, unspecified; F01.51 Vascular dementia, unspecified severity, with behavioral disturbance; R33.9 Retention of urine, unspecified; E83.42 Hypomagnesemia; S90.411A Abrasion, right great toe, initial encounter; X58.XXXA Exposure to other specified factors, initial encounter; E03.9 Hypothyroidism, unspecified; N18.9 Chronic kidney disease, unspecified; B95.2 Enterococcus as the cause of diseases classified elsewhere; D50.9 Iron deficiency anemia, unspecified; Z66 Do not resuscitate
CPT/HCPCS: 36415; 36430; 80048; 85027; 86850; 86900; 86901; 86920; 99222; 99233; 81003; 81015; 83735; 85014; 85018; 86140; 87086; 99232; 99239; J3475; P9016

== ENCOUNTER 2019-04-22 11:05 | Inpatient (IN) | payer MEDICARE, BC, OTHER, SELFPAY ==
--- NOTE | 2019-04-22 11:10 | HPE_ITS ---
Date of service: 04/22/19 Time of Service: 11:11 Assessment and Plan Assessment and plan (1) Urinary retention: Status: Acute Assessment and plan: Urology consulted. Continue bladder scans and intermittent catheterization. Flomax initiated yesterday. (2) CKD (chronic kidney disease): Status: Acute Assessment and plan: Monitor intermittently. Creatinine appears to be at baseline. (3) History of diabetes mellitus: Status: Ruled-out Assessment and plan: Fasting glucose 92 this morning. Not on medication as an outpatient. Continue Carb counting diet. (4) Agitation: Status: Acute Assessment and plan: Improved. Continue seroquel. (5) Eschar of toe: Status: Acute Assessment and plan: Stable. Has been evaluated by Dr. Farrar. Follow Podiatry recommendations to wash feet with soap and water, dry well, leave wound open to air, avoid shoes unless ambulating. (6) Hypothyroid: Status: Chronic Assessment and plan: Continue Levothyroxine. Qualifiers: Hypothyroidism type: acquired Qualified Code(s): E03.9 - Hypothyroidism, unspecified (7) Dementia: Status: Chronic Assessment and plan: Does not appear to be agitated today. Continue to monitor. Continue seroquel. Qualifiers: Dementia type: vascular dementia Dementia behavioral disturbance: with behavioral disturbance Qualified Code(s): F01.51 - Vascular dementia with behavioral disturbance (8) DVT prophylaxis: Status: Acute Assessment and plan: SCDs and TEDs. (9) Discharge planning issues: Status: Acute Assessment and plan: She is a DNR/DNI. Care management is working on placement. This case was discussed with Dr. Harris who is in agreement. History of Present Illness History of Present Illness Chief Complaint: Dementia, needs placement Narrative: Meghan Marin is a 70-year-old female with a past medical history of dementia, anemia, CVA, chronic kidney disease, dwh-[id number] diabetes, hypothyroidism who was brought to the [facility] emergency department on 04/14/2019 due to agitation and aggression with her family at home. She had reportedly become increasingly more agitated over the month prior to her presentation. She was initially admitted on to swing bed status at that time pending placement. During her swing bed stay she was found to have a urinary tract infection and was initiated on amoxicillin. She was noted to have anemia with a hemoglobin of 7.9 at the time of her admission. Upon recheck of her labs, she was found to have worsening renal function. She was noted to be retaining urine and required intermittent catheterizations. Due to the need for closer monitoring, she transition to acute status on 04/17/2019. She was given hydration with IV fluids, she remained on antibiotics, her renal function was monitored daily as well as her anemia. Her stools were assessed for occult blood. She had continuous bladder scans with intermittent catheterizations. During her acute hospitalization, she completed her course of antibiotics. Her renal function improved with IV fluids and the IV fluids were discontinued. Her hemoglobin improved from a low of 7.7 to 12.6 on the day of discharge. Her stools were heme-negative. Her agitation improved. She continues to require intermittent catheterizations, urology consulted for recommendations. Physical therapy and Occupational Therapy were unable to work with her due to her inability to follow directions due to her advanced dementia. She was seen by Dr. Farrar for a wound on her right great toe. Podiatry made recommendations for washing her feet daily with soap and water, dry well, leave the wounds open to air and avoid shoes unless she is ambulating. At this time, she no longer requires acute level care. She will transition to swing bed level of care while care management continues to work on finding placement for her. Review of Systems Unobtainable due to mental condition [facility] Medical History CKD (chronic kidney disease) (Acute) Dementia (Chronic) History of colon cancer (Acute) s/p partial colectomy and reversal of colostomy; no chemotherapy Hypothyroid (Chronic) Vaginal bleeding (Acute) Noted as inpatient at [facility] Surgical History H/O colectomy (Resolved) H/O hysterectomy with oophorectomy (Resolved) Unknown date. Family reports hysterectomy to treat uterine cancer. Social History Smoking/Tobacco Use Status: Former Tobacco Use Alcohol Intake: never Drug use: Never Substance use type: does not use Do you feel safe at home: Yes Do you feel safe in your relationship?: Yes Additional Social history: home she came from was not safe in [place]. Meds Home Medications and Allergies Home Medications Medication Instructions Recorded Confirmed Type levothyroxine 100 mcg PO DAILY 03/13/19 04/14/19 History loperamide 2 mg PO BID 03/13/19 03/13/19 History nystatin 1 applic TOPICAL BID 03/13/19 03/13/19 History ascorbic acid (vitamin C) [Vitamin 500 mg PO BID #0 tab 03/20/19 Rx C] aspirin 81 mg PO DAILY #0 tab 03/20/19 Rx atorvastatin [Lipitor] 40 mg PO QPM #0 tab 03/20/19 04/14/19 Rx cyanocobalamin (vitamin B-12) 1,000 mcg IM/SC DAILY #0 ml 03/20/19 Rx ferrous sulfate 325 mg PO BID #0 tab 03/20/19 Rx folic acid 1 mg PO QAM #0 tab 03/20/19 04/14/19 Rx pantoprazole 40 mg PO DAILY@0730 #0 tab 03/20/19 04/14/19 Rx quetiapine 12.5 mg PO HS #0 tab 03/20/19 04/14/19 Rx citalopram 10 mg PO DAILY AM 04/14/19 04/14/19 History Allergies Allergy/AdvReac Type Severity Reaction Status Date / Time amantadine AdvReac Unknown Unverified 03/17/19 16:21 levofloxacin [From Levaquin] AdvReac Unknown Unverified 03/17/19 16:21 Exam Narrative Exam Narrative: General: 74-year-old female, appears younger than stated age, sitting up in the chair. Smiling and pleasant. Answers questions with yes and it's fine. HEENT: Normocephalic, atraumatic, pupils are symmetrical and round, mucous membranes moist. Neck: Supple, no JVD. Cardiovascular: Heart has regular rate and rhythm, 1/6 systolic murmur noted at LSB. Respiratory: Respirations appear even and unlabored, lung sounds clear to auscultation bilaterally. GI: Normoactive bowel sounds throughout, abdomen is soft, nontender on palpation, nondistended. Extremities: No clubbing, cyanosis or edema. Pedal pulses are palpable bilaterally. Right great toe with superficial wound with echar, mild erythema surrounding site, no drainage.
--- NOTE | 2019-04-22 12:25 | PHARADMIT ---
Addendum entered by Jia Giron 06/15/19 13:29: Hydromorphone increased to 4mg/hr yesterday afternoon (42.4ml of 50ml CADD remaining) Increased CADD concentration to 10mg/ml to accommodate basal and bolus parameters Current range is 4-8mg/hr Addendum entered by Jia Giron 06/14/19 11:14: Hydromorphone CADD increased to 3mg/hr (~90ml remains) Ativan IM x1 Pt has been mostly sleeping but distressed when awake Addendum entered by Valentin Barreto III 06/13/19 11:25: Patient seen by , Donell HARDING SC drip started, mouthkote, & eye drops prn. Addendum entered by Danette Bernardo 06/08/19 12:44: no complaints of pain, pt did take pills last night pt has strong urine but is DIRECTOR OF DISTANCE LEARNING Addendum entered by Danette Bernardo 06/07/19 11:36: nursing notes pt pain better controlled, pt not eating or taking PO pills Addendum entered by Valentin Barreto III 06/06/19 11:53: Nursing noted that patient apeared to be in more pain, Fentannyl Patch increeased to 25MCG NO OTHER CHANGES Addendum entered by Thea Torres 06/03/19 09:35: No VS or labs nothing new per morning report no med changes so far today Addendum entered by Thea Torres 06/02/19 11:19: No VS or labs fentanyl patch ordered a couple of days ago pt refusing some meds, poor appetite per nursing report Addendum entered by Valentin Barreto III 05/29/19 11:53: MD has ordered Liquid APAP & Morphine to treat discomfort. No VS No Labs Per family, not to start ABX DIRECTOR OF DISTANCE LEARNING Addendum entered by Valentin Barreto III 05/28/19 11:38: DIRECTOR OF DISTANCE LEARNING Patient teeiving APAP and Tramadol for comfort. Urine becoming green & purulent, aware. No VS no Labs Addendum entered by Thea Torres 05/26/19 15:17: CUSTOMER SUPPLY COORDINATOR aware acetaminophen dosing would put pt over 3 gram limit per day, MD aware tramadol recommended to be Q12H based on renal function pt DIRECTOR OF DISTANCE LEARNING, trying to make more comfortable. Addendum entered by Thea Torres 05/26/19 11:43: No VS or labs nothing new per morning report no med changes Addendum entered by Danette Bernardo 05/24/19 13:30: no notes no vs or labs loose stools no med changes Addendum entered by Valentin Barreto III 05/23/19 11:13: No VS, No Labs sent up Eucerin cream per nursing request No Changes Addendum entered by Valentin [employer] - is now [employer] Estevan HADDAD 05/22/19 15:18: No VS, No Labs No Temp recorded No Med changes CM working towards payment/Placement issues Addendum entered by Thea Torres 05/19/19 12:22: No VS or labs Temp 38.4 yesterday evening no med changes so far today Addendum entered by Jelly [employer] Barreto [employer] 05/18/19 13:24: Remains DIRECTOR OF DISTANCE LEARNING No Labs No Med changes CM noted that state is reviewing financials and patient nay be ready to go to [facility] next week. Addendum entered by Thea Torres 05/12/19 15:37: No VS or labs no med changes nothing new per morning report today Addendum entered by Jelly HQ Barreto [employer] 05/10/19 12:07: No VS, No Labs No changes CM working on patients financial problems Addendum entered by Thea Torres 05/09/19 14:25: No VS or labs Pt is DIRECTOR OF DISTANCE LEARNING, some meds continued to try to enhance comfort or prevent agitation no med changes today Addendum entered by [email or web address] 05/07/19 12:07: Patient has palliative care consult. Family wants lopez removed and no ABX at this time. Patient has been refusing or spitting out medications. No VS,No Labs Patient to transition to DIRECTOR OF DISTANCE LEARNING Addendum entered by Thea Torres 05/06/19 12:30: VS okay, SCr-2.06(down slightly), h/h-10.8/33.6(up slightly) cefpodoxime continues (day6) pt missed pm meds last 2 nights per nursing report no med changes Addendum entered by Thea Torres 05/05/19 17:05: VS okay, no labs AM quetiapine dose increased from 12.5 to 25 mg cefpodoxime continues (day5) Addendum entered by Thea Torres 05/01/19 12:00: BP-111/59 other VS okay h/h-10.0/31.0 hematuria resolved per morning report. UA and urine culture ordered today no med changes so far today Addendum entered by Valentin Barreto III 04/29/19 11:51: Dementia patient requiring IV Magnesium and sitter so she dos not pull out IV access. Continues to have hematuria (H&H-10.4/31.3) VS-OK Mag-1.1 SCr-2.3 BUN-77 other labs-OK Wgt-43.9 kg regular BMs Watch H&H, SCr & Mag Addendum entered by Thea Torres 04/27/19 10:02: no VS yet today, no labs BP yesterday was 158-68 pt has been pleasant per nursing report no med changes waiting for placement/intermediate medicaid Addendum entered by Thea Torres 04/26/19 10:11: no VS yet today, no labs nursing having trouble doing bladder scans due to pts agitation per morning report pt has daily PRN dose of quetiapine if needed to help with this per MD no med changes waiting for placement- CM mentioned possibility of pt going to [facility] while waiting for application process to go through, but more details need to be sorted out before that would occur Addendum entered by Thea Torres 04/25/19 11:22: VS-okay no labs no med changes waiting for placement Addendum entered by Valentin Barreto III 04/24/19 17:05: VS-OK Wgt-44 kg, Reg BMs No Labs No Med Changes Awaiting skilled nursing medicaid appliaction to process. Addendum entered by Jia Giron 04/22/19 12:38: Addendum: Placement issue, no payor source, Podiatry consult for foot wound, Anbx completed Original Note: SWINGBED 04/22/19 VS-ok, Afebrile, weight down 0.9kg, stool heme negative SCr improved, H/H 12.6/37.1, BG 92 UTI resolved, renal function baseline, chronic advanced dementia/agitation, chronic anemia unsafe transfers, refuses to wear socks, dwight knees, doesn't want to stand, incontinent-bladder scans, straight cath No med changes Addendum entered by Valentin Barreto III 04/21/19 11:14: Pharmacy Note Subjective Dementia patient rec'd transfusion 2 days ago, H&H-OK (10.0/31.1) Had consult. Experiencing urinary retention on Flomax now. Objective BP-148/73 VS-OK SCr-2.47 Labs-OK Wgt-47.4 kg Stool-heme neg Assessment Amoxiciilin DC'd (completed 5 days for UTI), requiring Seroquel for behavior & agitation,. Plan Watch H&H, SCr, Will probably become a Swing Bed patient here. No DVT proph started yet... Addendum entered by Thea Torres 04/20/19 12:55: Pharmacy Note Subjective pt continues to be confused (confused at baseline) per morning report; possible wound consult for a toe Objective BP-128/56 other VS okay mag-2.3(up) SCr-2.25(down slightly) h/h-10.0/30.5(up) Assessment tamsulosin started today amoxicillin continues (day 5 starts this evening, uptodate recommends 5 day course for UTI due to Enterococcus) CUSTOMER SUPPLY COORDINATOR plans on doing repeat UA in AM, if negative will stop abx Plan continue to watch VS and labs watch for UA results tomrrow/possible stop of abx (no stop time on order yet) watch for start of DVT prophylactic meds once anemia resolved CM working on placement Addendum entered by Thea Torres 04/19/19 13:13: Pharmacy Note Subjective heme test negative per nursing but pt have some hematuria per morning report Objective Tmax-37.6 BP-114/52 other VS okay mag-1.6(up) SCr-2.38(down slightly) h/h-6.9/21.7(down) Assessment amoxicillin continues(day 4 starts this evening) IV mag replacement given Plan transfusion 2 units today, watch h/h watch mag watch for start of DVT prophylactic meds once anemia resolved CM working on placement Original Note: Admission Pharmacy Clinical Review UTI, urinary retention, anemia Code Status DNR/DNI Current Weight 46.1 kg Renally Cleared and Narrow Therapeutic Index Meds Crcl ~12 mL/min amoxicillin currently renally dose, watch GFR citalopram not studied in pts w/Crcl >20 mL/min; use caution QTc Value / Action Taken QTc 452 on 04/14/19 BP Control, Fever BP 157/61 afebrile Electrolytes reviewed Cl 109 mag 0.9 IV replacement given DVT Prophylaxis none Opiate Usage / Scheduled Bowel Regimen Ordered no/PRN Plt/SCr for Heparin / Enoxaparin plt 257 SCr 2.99 INR for Warfarin n/a H/H stable, WBC/Bands h/h 7.7/24.5 WBC 8.44 Antibiotic appropriateness amoxicillin for UTI, growing Enterococcus faecalis susceptible to penicillins Cultures and Sensitivities urine cultures- grew E.faecalis 04/14; grew gram positive aida 04/17 Surgical ABX d/c within 24 hr n/a DM control / Insulin Dosing Bg 99 none Heart Failure (Check EF%) (ANA's, B-Block, Diuretics) none IV to PO Switch n/a Home Meds Reviewed separate admin of levothyroxine and ferrous sulfate multiple QTc prolonging meds: citalopram, quetiapine, loperamide Home Meds Not Ordered ascorbic acid, aspirin, cyanocobalamin, loperamide, nystatin Comments home med list was not updated
--- NOTE | 2019-04-22 13:00 | UCONE_ITS ---
Date of service: 04/22/19 Time of Service: 13:00 Assessment and Plan Assessment and plan (1) Urinary retention: Status: Acute Assessment and plan: The usual recommended treatment is clean intermittent catheterization. This patient certainly would not be able to perform CIC on her own. I would expect that the ability to continue with intermittent catheterization will depend on her ultimate placement. We can attempt to maximize her chances of voiding on her own by minimizing her discontinuing medications that may cause retention, managing any underlying constipation, and improving her mobility. She is on a few medications (Seroquel and citalopram) that can be associated with retention, but I am not sure that she would be able to come off either of these medications at this time. A very small percentage of women who have bladder neck hypertrophy can respond to alpha-can such as Flomax. I do not see a downside to a trial of Flomax, but the percentages of it working are not in our favor. If intermittent catheterization is not feasible and an indwelling catheter is required, women do much better with a suprapubic tube compared to an indwelling urethral catheter. The urethral catheters tend to cause an erosion of the urethra due to pressure necrosis. These are the patients whose catheters will come out even with the balloon inflated. History of Present Illness History of Present Illness Chief Complaint: Urinary retention Narrative: This is a 74-year-old woman who was recently hospitalized with increased agitation. She was found to have a urinary tract infection and incomplete bladder emptying. Her UTI has been successfully treated. She is still requiring intermittent catheterization. We have been asked to see her and ensure that she is followed after her discharge. She had a similar issue when she was hospitalized in March of this year. She actually had a follow-up appointment with us a few days after her discharge, but that appointment was canceled and never rescheduled. The patient has dementia so she is not able to provide much of a history for me. She denies any type of bladder or pelvic surgery in the past, but her records indicate that she has had a hysterectomy for uterine cancer. She denies kidney stones or recurrent urinary tract infections. She denies constipation or neurologic issues although her history indicates multiple strokes. She cannot really tell me if she can sense when her bladder is full. She can be incontinent between catheterizations. Review of Systems Unobtainable due to mental status [facility] Medical History CKD (chronic kidney disease) (Acute) Dementia (Chronic) History of colon cancer (Acute) s/p partial colectomy and reversal of colostomy; no chemotherapy Hypothyroid (Chronic) Vaginal bleeding (Acute) Noted as inpatient at [facility] Surgical History H/O colectomy (Resolved) H/O hysterectomy with oophorectomy (Resolved) Unknown date. Family reports hysterectomy to treat uterine cancer. Social History Smoking/Tobacco Use Status: Former Tobacco Use Alcohol Intake: never Drug use: Never Substance use type: does not use Do you feel safe at home: Yes Do you feel safe in your relationship?: Yes Additional Social history: home she came from was not safe in [place]. Exam Narrative Exam Narrative: She is a thin pleasant woman sitting at her bedside. She does not appear septic or toxic Her vital signs are documented elsewhere She is awake and alert.
[2019-04-22 15:57] VITALS: BP 90/52; PULSE 77; RESP 17; TEMP 36.2; O2SAT 98
--- NOTE | 2019-04-22 17:41 | CMPROGNOTE_ITS ---
- If Service Date Differs Date of service: 04/22/19 Time of Service: 17:41 Care Management Progress Note S/O: Meghan is transitioning to SB1 today she remains confused and incontinent she is requiring straight cath for urinary retention. She did transition to oral abx. CM submitted the LTM application today her daughter verbally agrees to SB1 and CM emails the contract waiting for the return. NEMO continues to work with the [facility] for Manager Mall Placement and reviewed with woodworker at the [facility] today. Meghan's daughter agrees with the plan she does not have the intention to bring Meghan in her home in [place]. CM faxed the application as well as mailed a physical copy. Will follow up with Medicaid watcher automat long goods at the end of the week. A: Meghan is a 74 year old female admitted to swing bed with symptoms r/t her dementia, she was also found to have anemia, and UTI and persistent incontinen ce. P: Meghan will remain here at [facility] until a safe discharge plan can be identified. She will transition to SB1 today for correction care. NEMO has reached out to senior team to review options for disposition including the [facility] senior team. longterm Medicaid application has been submitted awaiting review. disposition pending, CM to continue to provide support to patient discharge planning.
--- NOTE | 2019-04-22 17:41 | PDOC.CMPRO ---
- If Service Date Differs Date of service: 04/22/19 Time of Service: 17:41 Care Management Progress Note S/O: Meghan is transitioning to SB1 today she remains confused and incontinent she is requiring straight cath for urinary retention. She did transition to oral abx. CM submitted the LTM application today her daughter verbally agrees to SB1 and CM emails the contract waiting for the return. CM continues to work with the [facility] for Grief Counselor Placement and reviewed with prop worker at the [facility] today. Meghan's daughter agrees with the plan she does not have the intention to bring Meghan in her home in [place]. CM faxed the application as well as mailed a physical copy. Will follow up with Medicaid longwall shearer operator at the end of the week. A: Meghan is a 74 year old female admitted to swing bed with symptoms r/t her dementia, she was also found to have anemia, and UTI and persistent incontinence. P: Meghan will remain here at [facility] until a safe discharge plan can be identified. She will transition to 1 today for senior living care. CM has reached out to senior team to review options for disposition including the [facility] senior team. [facility] Medicaid application has been submitted awaiting review. disposition pending, CM to continue to provide support to patient discharge planning.
[2019-04-22] MEDS: Ferrous Sulfate 325 MG TAB PO (20:53)
[2019-04-22] MEDS: Atorvastatin 40 MG TAB PO (20:53)
[2019-04-22] MEDS: QUEtiapine 25 MG TAB 12.5 MG PO (21:34)
[2019-04-23] MEDS: Levothyroxine 100 MCG TAB PO (05:56)
[2019-04-23 07:31] VITALS: BP 128/67; PULSE 72; RESP 16; TEMP 36.3; O2SAT 99
[2019-04-23] MEDS: Citalopram 10 MG TAB PO (08:34)
[2019-04-23] MEDS: Pantoprazole 40 MG TABCR PO (08:34)
[2019-04-23] MEDS: Ferrous Sulfate 325 MG TAB PO ×2 (08:34→20:45)
[2019-04-23] MEDS: Folic Acid 1 MG TAB PO (08:34)
[2019-04-23] MEDS: Tamsulosin 0.4 MG CAPCR PO (08:35)
[2019-04-23] MEDS: QUEtiapine 25 MG TAB 12.5 MG PO ×2 (08:59→20:45)
[2019-04-23 16:09] VITALS: BP 119/62; PULSE 64; RESP 18; TEMP 37.4; O2SAT 95
[2019-04-23] MEDS: Atorvastatin 40 MG TAB PO (20:46)
[2019-04-23 20:49] VITALS: BP 115/57; PULSE 84; RESP 18; TEMP 36.1; O2SAT 98
[2019-04-24 02:45] VITALS: BP 122/64; PULSE 75; RESP 16; TEMP 37.1; O2SAT 98
[2019-04-24] MEDS: Levothyroxine 100 MCG TAB PO (05:57)
[2019-04-24] MEDS: Loperamide 2 MG CAP PO (07:39)
[2019-04-24] MEDS: Ferrous Sulfate 325 MG TAB PO ×2 (07:58→19:31)
[2019-04-24] MEDS: Tamsulosin 0.4 MG CAPCR PO (07:58)
[2019-04-24] MEDS: Folic Acid 1 MG TAB PO (07:58)
[2019-04-24] MEDS: Pantoprazole 40 MG TABCR PO (07:58)
[2019-04-24] MEDS: QUEtiapine 25 MG TAB 12.5 MG PO ×2 (07:58→19:31)
[2019-04-24] MEDS: Citalopram 10 MG TAB PO (07:58)
[2019-04-24 09:18] VITALS: BP 107/55; PULSE 66; RESP 16; TEMP 36.8; O2SAT 100
--- NOTE | 2019-04-24 12:53 | W.NUTRFU ---
Date of service: 04/24/19 Time of Service: 12:54 Nutritional Follow up NOTE: Nursing reports increase in diarrhea, will switch diet to low fiber. continue with glucerna BID. continues to be able to feed self. Met pt during lunch, completed 75%, 100% of glucerna. will continue to follow. currently meeting nutrient/fluid needs for weight regain. Down 4 lbs since admission last week. Suspect weight to stabilize once diarrhea resolves. BMI indicates underweight status putting pt at risk for skin breakdown. Time Spent in Nutritional Counseling and Treatment: 15 min spent face to face
--- NOTE | 2019-04-24 14:39 | CMACTNOTE_ITS ---
- If Service Date Differs Date of service: 04/24/19 Time of Service: 14:39 Care Management Activity Note S/O: Meghan is sitting up in the chair she is alert. Meghan enjoys visits and television in her room. Meghan appreciates music therapy. Meghan is awaiting placement, NEMO did fax shelter medicaid application collaborating with the [facility] to try and secure transition to their facility. A: Meghan is a 74 year female admitted with symptoms related to dementia, UTI, anemia and red rita area r/t incontinence of urine and stool P: Meghan is in swing bed awaiting placement at a terminal computer operator care facility. correction medicaid is pending and daughter Meghan is trying to sell the home to pay for LTC. [facility] is in option per admission's if there is a payer source. Disposition to be determined.
[2019-04-24 16:07] VITALS: BP 117/70; PULSE 80; RESP 17; TEMP 37.2; O2SAT 98
[2019-04-24] MEDS: Atorvastatin 40 MG TAB PO (19:31)
[2019-04-25] MEDS: Levothyroxine 100 MCG TAB PO (06:56)
[2019-04-25 07:00] VITALS: BP 112/68; PULSE 78; RESP 16; TEMP 37; O2SAT 96
[2019-04-25] MEDS: Tamsulosin 0.4 MG CAPCR PO (08:02)
[2019-04-25] MEDS: Pantoprazole 40 MG TABCR PO (08:02)
[2019-04-25] MEDS: Folic Acid 1 MG TAB PO (08:02)
[2019-04-25] MEDS: Ferrous Sulfate 325 MG TAB PO ×2 (08:02→19:23)
[2019-04-25] MEDS: Loperamide 2 MG CAP PO ×2 (08:03→11:38)
[2019-04-25] MEDS: Citalopram 10 MG TAB PO (08:03)
[2019-04-25] MEDS: QUEtiapine 25 MG TAB 12.5 MG PO ×2 (08:03→19:23)
[2019-04-25 11:46] VITALS: BP 122/66; PULSE 80; RESP 16; TEMP 37; O2SAT 100
--- NOTE | 2019-04-25 13:22 | CMPROGNOTE_ITS ---
Care Management Progress Note NEMO spoke with Sharlene: RNCM, and CENTRAL SUPPLY MANAGER re: funding for placement at [facility]. NEMO and Sharlene provided case review to [facility] and proposal for placement. CENTRAL SUPPLY MANAGER reported he would discuss with legal to determine viability of proposal. CM provided demographic information for follow up, and will await determination.
--- NOTE | 2019-04-25 13:22 | PDOC.CMPRO ---
Care Management Progress Note NEMO spoke with Sharlene: RNCM, and MARKET SURVEY REPRESENTATIVE re: funding for placement at [facility]. NEMO and Sharlene provided case review to [facility] and proposal for placement. MARKET SURVEY REPRESENTATIVE reported he would discuss with legal to determine viability of proposal. CM provided demographic information for follow up, and will await determination.
[2019-04-25] MEDS: Acetaminophen 325 MG TAB 650 MG PO (19:23)
[2019-04-25] MEDS: Atorvastatin 40 MG TAB PO (19:23)
[2019-04-26] MEDS: Levothyroxine 100 MCG TAB PO (06:53)
[2019-04-26] MEDS: QUEtiapine 25 MG TAB 12.5 MG PO ×2 (08:46→22:08)
[2019-04-26] MEDS: Pantoprazole 40 MG TABCR PO (08:46)
[2019-04-26] MEDS: Tamsulosin 0.4 MG CAPCR PO (08:47)
[2019-04-26] MEDS: Citalopram 10 MG TAB PO (08:47)
[2019-04-26] MEDS: Ferrous Sulfate 325 MG TAB PO ×2 (09:14→22:11)
[2019-04-26] MEDS: Folic Acid 1 MG TAB PO (09:14)
[2019-04-26 16:12] VITALS: RESP 16; TEMP 36.5
[2019-04-26] MEDS: Acetaminophen 325 MG TAB 650 MG PO (22:10)
[2019-04-26] MEDS: Atorvastatin 40 MG TAB PO (22:10)
[2019-04-26 22:12] VITALS: BP 158/68; PULSE 84; RESP 16; TEMP 36.7; O2SAT 98
[2019-04-27] MEDS: Levothyroxine 100 MCG TAB PO (06:58)
[2019-04-27] MEDS: QUEtiapine 25 MG TAB 12.5 MG PO ×2 (08:17→20:43)
[2019-04-27] MEDS: Folic Acid 1 MG TAB PO (08:17)
[2019-04-27] MEDS: Tamsulosin 0.4 MG CAPCR PO (08:17)
[2019-04-27] MEDS: Ferrous Sulfate 325 MG TAB PO ×2 (08:17→20:43)
[2019-04-27] MEDS: Pantoprazole 40 MG TABCR PO (08:18)
[2019-04-27] MEDS: Citalopram 10 MG TAB PO (08:18)
[2019-04-27 16:29] VITALS: BP 107/64; PULSE 79; RESP 16; TEMP 36.7; O2SAT 96
[2019-04-27] MEDS: Atorvastatin 40 MG TAB PO (20:43)
[2019-04-28 03:16] VITALS: BP 122/62; PULSE 73; RESP 16; TEMP 36.7; O2SAT 99
[2019-04-28] MEDS: Levothyroxine 100 MCG TAB PO (05:41)
[2019-04-28 07:24] VITALS: BP 135/64; PULSE 75; RESP 17; TEMP 36.7; O2SAT 97
[2019-04-28] MEDS: Folic Acid 1 MG TAB PO (08:20)
[2019-04-28] MEDS: Pantoprazole 40 MG TABCR PO (08:20)
[2019-04-28] MEDS: Ferrous Sulfate 325 MG TAB PO (08:21)
[2019-04-28] MEDS: QUEtiapine 25 MG TAB 12.5 MG PO ×2 (08:21→13:49)
[2019-04-28] MEDS: Citalopram 10 MG TAB PO (08:21)
[2019-04-28] MEDS: Tamsulosin 0.4 MG CAPCR PO (08:21)
[2019-04-28 08:31] LABS: Abs Immature Grans 0.02 k/cumm (0.0-0.09); Absolute Basophil Count 0.06 k/cumm (0.0-0.2); Absolute Eosinophil Count 0.23 k/cumm (0.0-0.7); Absolute Lymphocyte Count 1.21 k/cumm (1.2-3.4); Absolute Monocyte Count 0.87 k/cumm (0.11-0.7); Absolute Neutrophil Count 5.88 k/cumm (1.2-6.7); Basophils % 0.7; Eosinophils % 2.8; HCT 33.3 % (36.0-46.0); HGB 10.9 g/dL (12.0-15.5); Immature Grans % 0.2; Lymphocytes % 14.6; Mean Corp. HGB Concentration 32.7 g/dL (32.0-36.0); Mean Corpuscular Hemoglobin 28.2 pg (27.0-33.0); Mean Corpuscular Volume 86.3 fL (80-95); Mean Platelet Volume 9.9 fL (8.0-11.0); Monocytes % 10.5; Neutrophils % 71.2; Platelet Count 364 x1000/uL (130-400); RBC 3.86 m/cumm (4.00-5.20); RBC Distribution Width 13.4 % (11.7-14.6); White Blood Cell Count 8.27 k/cumm (4.4-10.8)
[2019-04-28 08:43] LABS: Anion Gap 13.3 mmol/L (3-11); BUN 76 mg/dL (7-18); CO2 17.7 mmol/L (21.0-32.0); Calcium 9.3 mg/dL (8.5-10.1); Chloride 109 mmol/L (98-107); Estimated GFR 19.73 (mL/min/1.73m2); Glucose 109 mg/dL (74-106); Magnesium 1.2 mg/dL (1.8-2.4); Sodium 140 mmol/L (136-145)
--- NOTE | 2019-04-28 14:00 | GCONE_ITS ---
Date of service: 04/28/19 Time of Service: 13:32 Assessment and Plan Assessment and plan (1) Vaginal bleeding: Status: Ruled-out Assessment and plan: Based on exams today and 03/20/19, there has been NO confirmation of vaginal bleeding . Her pelvic ultrasound was consistent with her history and revealed no abnormalities. The most likely source for the bleeding is urinary from multiple catheterizations. (2) H/O hysterectomy with oophorectomy: Status: Inactive (3) Urinary retention: Status: Chronic (4) Agitation: Status: Chronic (5) Anemia: Status: Chronic Qualifiers: Anemia type: iron deficiency Iron deficiency anemia type: unspecified iron deficiency Qualified Code(s): D50.9 - Iron deficiency anemia, unspecified (6) CKD (chronic kidney disease): Status: Chronic (7) Diarrhea: Status: Acute (8) Dementia: Status: Chronic Qualifiers: Dementia behavioral disturbance: with behavioral disturbance Dementia type: vascular dementia Qualified Code(s): F01.51 - Vascular dementia with behavioral disturbance (9) Hypothyroid: Status: Chronic Qualifiers: Hypothyroidism type: acquired Qualified Code(s): E03.9 - Hypothyroidism, unspecified (10) Colon cancer: Status: Inactive History of Present Illness History of Present Illness Chief Complaint: Suspected vaginal bleeding Narrative: 74 year female female admitted 04/21/19 for management of multiple medical problems including dementia with anxiety, chronic renal disease, urinary retention, urinary incontinence, chronic anemia, treated colon cancer, treated uterine cancer, hypothyoidism, dyslipidemia, bowel incontinence. Neither she nor her family have been able to provide accurate history. This history is obtained is from records of recent admissions. Today on two occasions, bright red blood was noted on the floor when she stood up. There has been NO blood noted on hospital gown or bed. She requires catherization daily fo r retention. One close to time of noting blood. Stool today was heme-negative. A similar episode occured last month and was evaluated by Dr. Cochran. At that time her bimanual exam was negative and no blood was present in the vagina. A pelvic ultrasound showed the uterus and cervix absent, no ovaries visualized and no free pelvic fluid. She had a LITO with BSO, unknown date, for treatment of uterine cancer. She also had a partial colectomy for colon cancer. Consults Consult date: 04/28/19 Requesting physician: [place] Rolon Review of Systems Constitutional Comments: Pleasant elderly white female who is unable to provide history Genitourinary Genitourinary: Reports as per HPI Comments: can not provide gynecologic history [facility] Medical History (Updated 04/29/19 @ 19:33 by Baljit Paiz MD) CKD (chronic kidney disease) (Chronic) Dementia (Chronic) History of colon cancer (Acute) s/p partial colectomy and reversal of colostomy; no chemotherapy Hypothyroid (Chronic) Vaginal bleeding (Ruled-out) Surgical History (Updated 04/29/19 @ 19:32 by Baljit Paiz MD) H/O colectomy (Resolved) partial colectomy for colon cancer H/O hysterectomy with oophorectomy (Inactive) Uterine cancer Social History Smoking/Tobacco Use Status: Former Tobacco Use Alcohol Intake: never Drug use: Never Substance use type: does not use Do you feel safe at home: Yes Do you feel safe in your relationship?: Yes Additional Social history: home she came from was not safe in [place]. Female Reproductive History Menstrual Menopause type: surgical Exam Const General: frail appearing and other (permits limited exam of abdomen and bimanual pelvic) Nutritional Appearance: thin Orientation: confused Limitations: altered mental status GI Inspection: scar (RUQ, Midline lower abdomen) Palpation: soft General: bladder normal to palpation External Female Exam: external appearance normal (for age), normal appearance of the urethra and other (no perineal blood) Bimanual Exam- Vagina & Uterus: normal vaginal palpation (smooth vaginal wall, normal vaginal cuff without induration or thickening), bladder normal to palpation, uterus absent and other (no evidence of blood or discharge) Bimanual Exam- Adnexa, other: no adnexal masses (no palpable ovaries) Results Last Vital Signs Temp 97.9 F 04/29/19 16:39 Pulse 70 04/29/19 16:39 Resp 17 04/29/19 16:39 BP 114/54 L 04/29/19 16:39 Pulse Ox 99 04/29/19 16:39 Labs Result diagrams: 04/29/19 08:15 04/29/19 08:15 Labs: Laboratory Results - last 24 hr 04/29/19 04/29/19 08:15 08:15 WBC 9.11 RBC 3.61 L Hgb 10.4 L Hct 31.3 L MCV 86.7 MCH 28.8 MCHC 33.2 RDW 13.7 Plt Count 373 MPV 10.1 Sodium 142 Potassium 4.0 Chloride 110 H Carbon Dioxide 18.3 L Anion Gap 13.7 H BUN 77 H Creatinine 2.30 H Estimated GFR/1.73 m2 20.73 Glucose 146 H Calcium 9.0 Magnesium 1.1 L
[2019-04-28 15:00] VITALS: BP 120/68; PULSE 83; RESP 17; TEMP 36.7; O2SAT 98
[2019-04-29] MEDS: Folic Acid 1 MG TAB PO (07:59)
[2019-04-29] MEDS: Ferrous Sulfate 325 MG TAB PO (08:00)
[2019-04-29] MEDS: Citalopram 10 MG TAB PO (08:00)
[2019-04-29] MEDS: Pantoprazole 40 MG TABCR PO (08:00)
[2019-04-29] MEDS: Tamsulosin 0.4 MG CAPCR PO (08:00)
[2019-04-29] MEDS: QUEtiapine 25 MG TAB 12.5 MG PO ×2 (08:00→19:57)
[2019-04-29 08:27] LABS: HCT 31.3 % (36.0-46.0); HGB 10.4 g/dL (12.0-15.5); Mean Corp. HGB Concentration 33.2 g/dL (32.0-36.0); Mean Corpuscular Hemoglobin 28.8 pg (27.0-33.0); Mean Corpuscular Volume 86.7 fL (80-95); Mean Platelet Volume 10.1 fL (8.0-11.0); Platelet Count 373 x1000/uL (130-400); RBC 3.61 m/cumm (4.00-5.20); RBC Distribution Width 13.7 % (11.7-14.6); White Blood Cell Count 9.11 k/cumm (4.4-10.8)
[2019-04-29 08:43] LABS: Anion Gap 13.7 mmol/L (3-11); BUN 77 mg/dL (7-18); CO2 18.3 mmol/L (21.0-32.0); Chloride 110 mmol/L (98-107); Estimated GFR 20.73 (mL/min/1.73m2); Glucose 146 mg/dL (74-106); Magnesium 1.1 mg/dL (1.8-2.4); Sodium 142 mmol/L (136-145)
[2019-04-29 09:08] VITALS: BP 112/57; PULSE 74; RESP 16; TEMP 36.5; O2SAT 100
[2019-04-29] MEDS: Magnesium Chloride 64 MG TABCR PO (09:35)
--- NOTE | 2019-04-29 09:55 | W.NUTRFU ---
Date of service: 04/29/19 Time of Service: 09:56 Nutritional Follow up NOTE: Meghan continues to feed self and typically completes meals/beverages and glucerna BID during day. Increased nutrient needs as with continued diarrhea but has been weight stable x 5 days so appears to be meeting nutrient/fluid needs with po intake. Will continue to monitor weight, po intake and lab trends and adjust meal plan as needed. Will continue to provide low fiber diet. Low BMI puts Meghan at risk for skin breakdown and puts her at high nutritional risk. Awaiting SNF placement. Time Spent in Nutritional Counseling and Treatment: 0 time spent face to face
[2019-04-29] MEDS: MAGNESIUM SULFATE 4 GM/100 ML BAG IVPB (10:02)
[2019-04-29] MEDS: Acetaminophen 325 MG TAB 650 MG PO (11:44)
--- NOTE | 2019-04-29 12:59 | CM.SBPSYCH ---
- If Service Date Differs Date of service: 04/22/19 Time of Service: 16:00 SB Psychosocial/Act.Assessment - Hospital Admission Admission Date: 04/17/19 Admission From:: [facility] Diagnosis:: Anemia and UTI - Swing Bed Admission Swing Bed Admit Date:: 04/22/19 Swing Bed Level of Care: Level 1/SNF - Social Supports PREVIOUS FUNCTIONAL STATUS/SOCIAL/FAMILY SUPPORTS:: Meghan previously lived with a son in [place]. Due to family issues, she is no longer able to remain there in her home. Another son, Param, brought her back to [place]. Meghan needs constant supervision which the family cannot provide, so she was brought to the hospital. Physically she is able to ambulate and feed herself but needs direction.They are seeking palcement in a oysterman care facility. - Prior to Admission Living Arrangements/Environment Prior to Admission:: Meghan was brought in by her daughter in law on 04/14/19 due to inability to care for her at home. She has confusion and needs assistance with all ADL's. Meghan moved to [place] with her DIL and Son because she was unable to care for herself at home. - Education Highest Grade Completed:: Meghan is unable to provide this information due to confusion. - Work History Employment Status:: Retired - : No - Benefits Financial: Social Security, Medicare - Mandaen Active Zoroastrian Member:: No Zoroastrian Affliation: Scientology Will Zoroastrian Members or Shop Lead Visit:: No - Advance Directives for Healthcare Advance Directives for Healthcare: Living Will If no AD, do you want more information:: No Advance Directive Agent: Daughter Meghan Adams in [place] - Interests Hobbies:: Raising her children Music:: Chayo Salas, Michael Zaragoza TV/Movies:: Television wathced a lot liked Criminal Minds, [employer] Other Activities:: Cats and Dogs she described as her family to her daughter. - Present Functional Status Physical Abilities:: Decrease ability to ambulate needs at least one assist for ambulation. PT consult pending Cognitive:: History of dementia does have periords of aggitation which appears to be related to incontinant care Communication:: Meghan is unable to articulate her needs at times her words are jumbled and difficult to understand. Meghan's daughter has shared with CM that Meghan would not any aggressive management of illness and that she would want to be comfortable and have her needs met. Sensory Systems: Impaired due to cognitive decline Behavior:: Calm, confused and aggittated at times - Medical History PAST MEDICAL HISTORY/PAST SURGICAL HISTORY:: Medical History (Updated 03/14/19 @ 07:53 by Nj Daniels). Dementia (Suspected). History of colon cancer (Acute). s/p partial colectomy and reversal of colostomy; no chemotherapy. Hypothyroid (Chronic). Surgical History (Updated 03/13/19 @ 22:30 by Nj Daniels). H/O colectomy (Resolved) General Health:: Fair - Admission Data Reason for Swing Bed Admission:: Meghan is [facility] she needs intermintant Caths with frequent stools which she is incontinent of. Meghan is awaiting placement in LTC facility. NEMO is working with the [facility] to facilitate transition to rehab facility. Meghan is unable to return home to her DIL and sons home and her daughter in [place] cannot care for her at home. House is up for sale and plan is to use the resource to care for Meghan until she becomes elig. for LTM. Application has been sent in awaiting determination. Discharge Plan:: SNF referral with transition to oysterman care facility. LTM application is pending in addition to the sale of her home. Daughter Meghan is her contact including medical DPOA and Finanical DPOA. Demographics to date with daughters contact information. Assessment: Meghan is confused at times, she is redirectable and enjoys visit with staff. Meghan is unable to return home her son and [facility] are unable to care for her. Upon arrival to the [facility] Meghan was confused and aggitated. She was not doing well at home after discharge from a nursing facility. Family determined that they were unable to provide care to her at this time and requested placement at LTC facility. NEMO did coordiante visit with the [facility]. [facility] is willing to provide bed for LTC with a payer source. Meghan will be discharged once a safe discharge plan can be determine for disposition. Data Control Assistant: Nikki Fontaine Date Assessment was completed:: 04/22/19
--- NOTE | 2019-04-29 13:56 | PGE_ITS ---
Date of Service Date of service: 04/29/19 Time of Service: 14:05 Assessment and Plan Assessment and plan (1) Urinary retention: Status: Acute Assessment and plan: She has been evaluated by urology, Dr. Bernal recommends continuing intermittent catheterizations with consideration for suprapubic catheter if it becomes unfeasible to continue intermittent catheterizations. Note was made yesterday of hematuria, Hgb stable at 10.4 today. AVIONICS SUPERVISOR evaluated and did not believe this was gynecological. Continue trial of flomax with intermittent catheterizations. (2) Hypomagnesemia: Status: Acute Assessment and plan: Her magnesium was 1.1 today. She tolerated IV magnesium 4 grams today. Repeat Mg tomorrow morning. (3) CKD (chronic kidney disease): Status: Acute Assessment and plan: Renal function appears to be at baseline. (4) History of diabetes mellitus: Status: Ruled-out Assessment and plan: Her glucose on labs this morning was 146. Not on medication as an outpatient. Continue Carb counting diet. (5) Eschar of toe: Status: Acute Assessment and plan: Stable. Has been evaluated by Dr. Farrar. Follow Podiatry recommendations to wash feet with soap and water, dry well, leave wound open to air, avoid shoes unless ambulating. (6) Hypothyroid: Status: Chronic Assessment and plan: Continue Levothyroxine. Qualifiers: Hypothyroidism type: acquired Qualified Code(s): E03.9 - Hypothyroidism, unspecified (7) Dementia: Status: Chronic Assessment and plan: Intermittently becomes agitated. Continue Seroquel scheduled twice daily with an additional as needed dose daily. Qualifiers: Dementia type: vascular dementia Dementia behavioral disturbance: with behavioral disturbance Qualified Code(s): F01.51 - Vascular dementia with behavioral disturbance (8) DVT prophylaxis: Status: Acute Assessment and plan: SCDs and TEDs. (9) Discharge planning issues: Status: Acute Assessment and plan: She is a DNR/DNI. She is awaiting placement at a longterm facility. This case was discussed with Dr. Rolon who is in agreement. Subjective Subjective Interval history since last seen: Ms Marin was sleeping at the time of this visit and did not awaken. She has an BLOW MOULDING MACHINE OPERATOR sitting with her as she is receiving IV Mg and became agitated with the IV. She reportedly had hematuria yesterday, likely related to intermittent catheterizations. She is not an appropriate candidate for lopez as she pulls at lines and there is concern that she would pull it out. Lopez catheters are also not recommended long-term in women due to concern for urethral erosion. She was evaluated by Dr. Paiz, AVIONICS SUPERVISOR who stated that she did not have any blood in her vaginal vault. She has had no further reports of bleeding. Exam Narrative Exam Narrative: General: elderly female laying in bed on her right side. BLOW MOULDING MACHINE OPERATOR at bedside. HEENT: Normocephalic, atraumatic, pupils not visualized. Mucous membranes moist. Neck: Supple, no JVD. Cardiovascular:Heart has regular rate and rhythm, 1/6 systolic murmur noted at LSB. Respiratory: Respirations appear even and unlabored, lung sounds clear to auscultation bilaterally. GI: Normoactive bowel sounds throughout, abdomen is soft, does not appear tender on palpation, nondistended. Extremities: No clubbing, cyanosis or edema. Pedal pulses are palpable bilaterally. Right great toe with superficial wound with echar, mild erythema surrounding site, no drainage. Objective Objective Clinical Data: Abnormal lab results 04/29/19 04/29/19 Range/Units 08:15 08:15 RBC 3.61 L (4.00-5.20) m/cumm Hgb 10.4 L (12.0-15.5) g/dL Hct 31.3 L (36.0-46.0) % Chloride 110 H (98-107) mmol/L Carbon Dioxide 18.3 L (21.0-32.0) mmol/L Anion Gap 13.7 H (3-11) mmol/L BUN 77 H (7-18) mg/dL Creatinine 2.30 H (0.55-1.02) mg/dL Glucose 146 H (74-106) mg/dL Magnesium 1.1 L (1.8-2.4) mg/dL Vital Signs Temperature 36.5 C 04/29/19 09:08 Temperature Source Skin 04/29/19 09:08 Pulse 74 04/29/19 09:08 Pulse Rhythm Regular 04/29/19 09:09 Respiratory Rate 16 04/29/19 09:08 Respiratory Effort Non-Labored 04/29/19 09:09 Respiratory Depth Normal 04/29/19 09:09 Respiratory Pattern Normal 04/29/19 09:09 Blood Pressure 112/57 L 12/24/19 09:08 Pulse Oximetry 100 04/29/19 09:08 Oxygen Delivery Method Room Air 04/29/19 09:08 Oxygen Flow Rate 0 04/29/19 09:08 Pain Level 0 04/29/19 09:08 Comment 04/29/19 09:08 Intake & Output 04/28/19 04/29/19 04/29/19 23:59 11:59 23:59 Intake Total 110 / 110 Output Total 950 / 950 Balance -840 / -840 Weight 43.9 kg Intake: IV 10 Oral 100 / 100 Output: Post Void Residual 950 / 950 Other: Urine Color Yellow Yellow Urine Appearance Clear Cloudy Urine Odor Strong Comment patient found t o be stiing on inc of B&B. Tried several times to have patient allows us to clean her. She got very upset at us and screamed for us to leave her alone. Staff has withdrawn at this time, will attempt to approach again later incontinent of large amt of bm and urine prior Stool Size Small Small Stool Characteristics Soft Soft Liquid Voiding Methods Incontinent Laboratory Results WBC 9.11 k/cumm (4.4-10.8) 04/29/19 08:15 RBC 3.61 m/cumm (4.00-5.20) L 04/29/19 08:15 Hgb 10.4 g/dL (12.0-15.5) L 04/29/19 08:15 Hct 31.3 % (36.0-46.0) L 04/29/19 08:15 MCV 86.7 fL (80-95) 04/29/19 08:15 MCH 28.8 pg (27.0-33.0) 04/29/19 08:15 MCHC 33.2 g/dL (32.0-36.0) 04/29/19 08:15 RDW 13.7 % (11.7-14.6) 04/29/19 08:15 Plt Count 373 x1000/uL (130-400) 04/29/19 08:15 MPV 10.1 fL (8.0-11.0) 04/29/19 08:15 Immature Gran % 0.2 04/28/19 08:20 Neutrophils % 71.2 04/28/19 08:20 Lymphocytes % 14.6 04/28/19 08:20 Monocytes % 10.5 04/28/19 08:20 Eosinophils % 2.8 04/28/19 08:20 Basophils % 0.7 04/28/19 08:20 Absolute Neutrophils 5.88 k/cumm (1.2-6.7) 04/28/19 08:20 Absolute Lymphocytes 1.21 k/cumm (1.2-3.4) 04/28/19 08:20 Absolute Monocytes 0.87 k/cumm (0.11-0.7) H 04/28/19 08:20 Absolute Eosinophils 0.23 k/cumm (0.0-0.7) 04/28/19 08:20 Absolute Basophils 0.06 k/cumm (0.0-0.2) 04/28/19 08:20 Sodium 142 mmol/L (136-145) 04/29/19 08:15 Potassium 4.0 mmol/L (3.5-5.1) 04/29/19 08:15 Chloride 110 mmol/L (98-107) H 04/29/19 08:15 Carbon Dioxide 18.3 mmol/L (21.0-32.0) L 04/29/19 08:15 Anion Gap 13.7 mmol/L (3-11) H 04/29/19 08:15 BUN 77 mg/dL (7-18) H 04/29/19 08:15 Creatinine 2.30 mg/dL (0.55-1.02) H 04/29/19 08:15 Estimated GFR/1.73 m2 20.73 (mL/min/1.73m2) 04/29/19 08:15 Glucose 146 mg/dL (74-106) H 04/29/19 08:15 Calcium 9.0 mg/dL (8.5-10.1) 04/29/19 08:15 Magnesium 1.1 mg/dL (1.8-2.4) L 04/29/19 08:15
--- NOTE | 2019-04-29 14:12 | CM.SWINGPC ---
- If Service Date Differs Date of service: 04/22/19 Time of Service: 16:00 Swingbed Plan of Care Plan of care: SWING BED PROGRAM ACTIVITIES/DISCHARGE PLAN OF CARE ACTIVITIES PLAN Date:04/22/19 Identified Need:Individual activities, patient centered. Intervention/Plan: activity cart, music therapy, rekie therapy, pet therapy when available Initials [facility]UCILLE DISCHARGE PLAN Date:04/22/19 Identified Need: Urinary Retention, straight cath and Incontinent care including wound care Placement SNF with transition LTC placement Intervention/Plan: Straight Cath frequency dependent on urinary retention and bladder scan, replacement of electrolytes due to chronic diarrhea, and wound consult and management. LTM application completed and referral to local SNF with potential for LTC placement. Initials LUCILLE
[2019-04-29 16:39] VITALS: BP 114/54; PULSE 70; RESP 17; TEMP 36.6; O2SAT 99
[2019-04-30 04:15] VITALS: BP 120/63; PULSE 74; RESP 16; TEMP 37.2; O2SAT 99
[2019-04-30] MEDS: Folic Acid 1 MG TAB PO (08:51)
[2019-04-30] MEDS: Pantoprazole 40 MG TABCR PO (08:51)
[2019-04-30] MEDS: QUEtiapine 25 MG TAB 12.5 MG PO ×2 (08:51→20:48)
[2019-04-30] MEDS: Magnesium Chloride 64 MG TABCR PO ×2 (08:51→20:48)
[2019-04-30] MEDS: Citalopram 10 MG TAB PO (08:52)
[2019-04-30] MEDS: Ferrous Sulfate 325 MG TAB PO ×2 (08:52→20:48)
[2019-04-30] MEDS: Tamsulosin 0.4 MG CAPCR PO (08:52)
[2019-04-30 15:05] VITALS: BP 106/63; PULSE 84; RESP 17; TEMP 37; O2SAT 97
[2019-04-30] MEDS: Atorvastatin 40 MG TAB PO (20:48)
[2019-05-01] MEDS: Levothyroxine 100 MCG TAB PO (06:28)
[2019-05-01] MEDS: Ferrous Sulfate 325 MG TAB PO ×2 (08:17→20:15)
[2019-05-01] MEDS: Tamsulosin 0.4 MG CAPCR PO (08:17)
[2019-05-01] MEDS: Folic Acid 1 MG TAB PO (08:17)
[2019-05-01] MEDS: Pantoprazole 40 MG TABCR PO (08:17)
[2019-05-01] MEDS: Magnesium Chloride 64 MG TABCR PO ×2 (08:17→20:15)
[2019-05-01] MEDS: Citalopram 10 MG TAB PO (08:17)
[2019-05-01] MEDS: QUEtiapine 25 MG TAB 12.5 MG PO ×3 (08:18→20:16)
[2019-05-01 10:40] VITALS: BP 111/59; PULSE 70; RESP 14; TEMP 36.7; O2SAT 100
[2019-05-01 11:04] LABS: Abs Immature Grans 0.02 k/cumm (0.0-0.09); Absolute Basophil Count 0.05 k/cumm (0.0-0.2); Absolute Eosinophil Count 0.17 k/cumm (0.0-0.7); Absolute Lymphocyte Count 1.45 k/cumm (1.2-3.4); Absolute Monocyte Count 1.29 k/cumm (0.11-0.7); Absolute Neutrophil Count 5.74 k/cumm (1.2-6.7); Basophils % 0.6; Eosinophils % 1.9; Immature Grans % 0.2; Lymphocytes % 16.6; Mean Corp. HGB Concentration 32.3 g/dL (32.0-36.0); Mean Corpuscular Hemoglobin 28.4 pg (27.0-33.0); Mean Corpuscular Volume 88.1 fL (80-95); Mean Platelet Volume 10.1 fL (8.0-11.0); Monocytes % 14.8; Neutrophils % 65.9; Platelet Count 346 x1000/uL (130-400); RBC 3.52 m/cumm (4.00-5.20); White Blood Cell Count 8.72 k/cumm (4.4-10.8)
--- NOTE | 2019-05-01 13:24 | CMACTNOTE_ITS ---
- If Service Date Differs Date of service: 05/01/19 Time of Service: 13:24 Care Management Activity Note S/O: Meghan is alert she is sitting up in the chair today, she appears to enjoy visits. Per her daughter she enjoys television and likes criminal mind type shows. Meghan also likes animals and would benefit from service animal visit when available. Meghan has had music therapy, a television she has visits with her local family and appears to enjoy having someone sitting with her. NEMO spoke to Andrews damon's daughter at length regarding to the sale of the home and options for mortgage professional care. Daughter states that she is trying to sell the home quickly however she was just made aware that there are bank leans on the home and she is addressing those through her territory sales manager. Daughter has not heard from Intermediate Care at this point. A: Meghan is a 74 year old female admitted to [facility] for intermediate care related to urinary retention, frequent intermittent catheterizing. P: Meghan is awaiting discharge to a detention care facility r/t dementia and no other options for home care. NEMO is working with the [facility] and administration to determine a transition plan. CM to continue to facilitate safe discharge plan. Transportation will be via ambulance at time of discharge r/t dementia, and confusion.
[2019-05-01 13:53] LABS: Bilirubin Negative (Negative); Blood Moderate (Negative); Clarity Cloudy (Clear); Glucose Negative (Negative); Ketones Negative (Negative); Leukocyte Esterase Large (Negative); Nitrite Negative (Negative); Specific Gravity 1.015 (1.005-1.025); Urobilinogen 0.2 EU/dL (Up TO 0.2)
[2019-05-01 14:00] LABS: C & S Indicated? C&S Done As Ordered; RBC >50 HPF (0-2); WBC >50 HPF (0-5)
[2019-05-01] MEDS: Cefpodoxime 200 MG TAB PO (18:31)
[2019-05-01] MEDS: Atorvastatin 40 MG TAB PO (20:15)
[2019-05-02 00:25] VITALS: BP 115/68; PULSE 72; RESP 15; TEMP 36.9; O2SAT 98
[2019-05-02] MEDS: Levothyroxine 100 MCG TAB PO (05:46)
[2019-05-02] MEDS: Folic Acid 1 MG TAB PO (07:53)
[2019-05-02] MEDS: Tamsulosin 0.4 MG CAPCR PO (07:53)
[2019-05-02] MEDS: Citalopram 10 MG TAB PO (07:54)
[2019-05-02] MEDS: QUEtiapine 25 MG TAB 12.5 MG PO ×2 (07:54→17:39)
[2019-05-02] MEDS: Magnesium Chloride 64 MG TABCR PO (07:54)
[2019-05-02] MEDS: Ferrous Sulfate 325 MG TAB PO (07:54)
[2019-05-02] MEDS: Pantoprazole 40 MG TABCR PO (07:54)
[2019-05-02 11:10] VITALS: BP 113/65; PULSE 74; RESP 16; TEMP 36.6; O2SAT 99
[2019-05-02] MEDS: Acetaminophen 325 MG TAB 650 MG PO (12:59)
[2019-05-02] MEDS: Cefpodoxime 200 MG TAB PO (17:38)
[2019-05-02 18:30] VITALS: BP 110/63; PULSE 72; RESP 16; TEMP 36.7; O2SAT 98
[2019-05-03] MEDS: Levothyroxine 100 MCG TAB PO (07:10)
[2019-05-03 07:58] VITALS: BP 111/51; PULSE 68; RESP 17; TEMP 36.6; O2SAT 99
[2019-05-03] MEDS: Tamsulosin 0.4 MG CAPCR PO (07:58)
[2019-05-03] MEDS: QUEtiapine 25 MG TAB 12.5 MG PO ×2 (07:58→19:32)
[2019-05-03] MEDS: Pantoprazole 40 MG TABCR PO (07:58)
[2019-05-03] MEDS: Ferrous Sulfate 325 MG TAB PO (07:58)
[2019-05-03] MEDS: Citalopram 10 MG TAB PO (07:58)
[2019-05-03] MEDS: Folic Acid 1 MG TAB PO (07:58)
[2019-05-03] MEDS: Magnesium Chloride 64 MG TABCR PO (07:58)
[2019-05-03] MEDS: Cefpodoxime 200 MG TAB PO (17:11)
[2019-05-03 19:48] VITALS: BP 126/56; PULSE 83; RESP 17; TEMP 37.2; O2SAT 98
[2019-05-04] MEDS: Levothyroxine 100 MCG TAB PO (05:16)
[2019-05-04 07:29] VITALS: BP 126/68; PULSE 79; RESP 16; TEMP 37; O2SAT 98
[2019-05-04] MEDS: Citalopram 10 MG TAB PO (07:56)
[2019-05-04] MEDS: QUEtiapine 25 MG TAB 12.5 MG PO (07:56)
[2019-05-04] MEDS: Pantoprazole 40 MG TABCR PO (09:52)
[2019-05-04] MEDS: Ferrous Sulfate 325 MG TAB PO (09:52)
[2019-05-04] MEDS: Folic Acid 1 MG TAB PO (09:52)
[2019-05-04] MEDS: Magnesium Chloride 64 MG TABCR PO (09:53)
[2019-05-04] MEDS: Tamsulosin 0.4 MG CAPCR PO (09:53)
[2019-05-04] MEDS: Loperamide 2 MG CAP PO ×3 (12:07→18:17)
[2019-05-04] MEDS: Cefpodoxime 200 MG TAB PO (18:17)
[2019-05-05] MEDS: QUEtiapine 25 MG TAB 12.5 MG PO ×3 (05:02→11:13)
[2019-05-05] MEDS: Levothyroxine 100 MCG TAB PO (05:03)
[2019-05-05] MEDS: Magnesium Chloride 64 MG TABCR PO (08:59)
[2019-05-05] MEDS: Citalopram 10 MG TAB PO (08:59)
[2019-05-05] MEDS: Ferrous Sulfate 325 MG TAB PO (08:59)
[2019-05-05] MEDS: Pantoprazole 40 MG TABCR PO (08:59)
[2019-05-05] MEDS: Tamsulosin 0.4 MG CAPCR PO (08:59)
[2019-05-05 11:05] VITALS: BP 115/53; PULSE 70; RESP 18; TEMP 36.2; O2SAT 96
--- NOTE | 2019-05-05 13:18 | W.NUTRFU ---
Date of service: 05/05/19 Time of Service: 13:19 Nutritional Follow up NOTE: Meghan continues to await placement in SNF. Recommend liberalize diet in view of low BMI and provide a Low Fiber Diet to help manage diarrhea. Weight and PO intake have been stable in last 7 days and meeting nutrient and fluid needs for weight stability. Goal is for weight regain 1-2 lbs per week. Continue with glucerna BID, staff to cue at meals for optimal intake. Time Spent in Nutritional Counseling and Treatment: 15 min spent face to face
[2019-05-05 13:59] VITALS: BP 124/61; PULSE 78; RESP 16; TEMP 37; O2SAT 99
[2019-05-05] MEDS: Cefpodoxime 200 MG TAB PO (17:18)
[2019-05-06 07:29] VITALS: BP 135/65; PULSE 81; RESP 16; TEMP 36.6; O2SAT 97
[2019-05-06 07:36] LABS: Abs Immature Grans 0.01 k/cumm (0.0-0.09); Absolute Basophil Count 0.03 k/cumm (0.0-0.2); Absolute Eosinophil Count 0.19 k/cumm (0.0-0.7); Absolute Lymphocyte Count 1.52 k/cumm (1.2-3.4); Absolute Monocyte Count 0.96 k/cumm (0.11-0.7); Absolute Neutrophil Count 4.21 k/cumm (1.2-6.7); Basophils % 0.4; Eosinophils % 2.7; HCT 33.6 % (36.0-46.0); HGB 10.8 g/dL (12.0-15.5); Immature Grans % 0.1; Mean Corp. HGB Concentration 32.1 g/dL (32.0-36.0); Mean Corpuscular Hemoglobin 28.3 pg (27.0-33.0); Mean Corpuscular Volume 88.2 fL (80-95); Mean Platelet Volume 9.7 fL (8.0-11.0); Monocytes % 13.9; Neutrophils % 60.9; Platelet Count 320 x1000/uL (130-400); RBC 3.81 m/cumm (4.00-5.20); RBC Distribution Width 14.3 % (11.7-14.6); White Blood Cell Count 6.92 k/cumm (4.4-10.8)
[2019-05-06 07:50] LABS: Anion Gap 9.8 mmol/L (3-11); BUN 55 mg/dL (7-18); CO2 23.2 mmol/L (21.0-32.0); CREATININE 2.06 mg/dL (0.55-1.02); Calcium 9.5 mg/dL (8.5-10.1); Chloride 112 mmol/L (98-107); Estimated GFR 23.54 (mL/min/1.73m2); Glucose 92 mg/dL (74-106); Potassium 4.8 mmol/L (3.5-5.1); Sodium 145 mmol/L (136-145)
[2019-05-06] MEDS: Magnesium Chloride 64 MG TABCR PO (08:12)
[2019-05-06] MEDS: Ferrous Sulfate 325 MG TAB PO ×2 (08:12→20:36)
[2019-05-06] MEDS: Folic Acid 1 MG TAB PO (08:12)
[2019-05-06] MEDS: Pantoprazole 40 MG TABCR PO (08:12)
[2019-05-06] MEDS: Tamsulosin 0.4 MG CAPCR PO (08:12)
[2019-05-06] MEDS: Citalopram 10 MG TAB PO (08:13)
[2019-05-06] MEDS: QUEtiapine 25 MG TAB PO ×2 (08:13→20:36)
--- NOTE | 2019-05-06 13:13 | W.PALPGNOTE ---
Date of service: 05/06/19 Assessment and Plan Assessment and plan (1) Urinary retention: Status: Chronic Assessment and plan: very uncomfortable with in and out caths. She will not leave in lopez. Consider trial of no catheterization IF family agrees with plan. Unclear who DPOA is. Defer to Dr Vivar and CM team to contact appropriate family member. [place] from nursing that daughter from [place] is in charge now and that she would want to have her mother as BOX OFFICE MANAGER patient. I did not clarify this myself; I did not talk to family members. (2) Fecal incontinence: Status: Acute Assessment and plan: Severe, constant, loose, dark black stools. Unaware of stooling due to dementia. (3) Dementia: Status: Chronic Assessment and plan: Advanced. Unable to live alone. Unable to go back to SNF due to lack of payor source. Per CM, family selling house in [place], [place]. Qualifiers: Dementia type: vascular dementia Dementia behavioral disturbance: with behavioral disturbance Qualified Code(s): F01.51 - Vascular dementia with behavioral disturbance (4) Counseling regarding advance directives and goals of care: Status: Acute Assessment and plan: Unable to make her wishes known, other than to make it clear she hates being touched and (5) Palliative care patient: Status: Acute Assessment and plan: Followed primarily by Dr Vivar. She will see her again tomorrow. I support a change to BOX OFFICE MANAGER status IF the family agrees. Will see what Dr Vivar thinks. Subjective Subjective Patient reports: tolerating a regular diet and bowel movement Interval history since last seen: Chronically incontinent of urine and feces. Unaware when she has voided. Repetitive and impoverished in her language. I'm fine. I'm fine. Primary nurse Irma Raya asked me to see Meghan today. Irma is worried about the poor QOL that Meghan has. She hates being in-and-out cathed though she is more than once per day as she will not leave a lopez in place. Meghan has been seen by Dr Vivar in the past,on 03/17/19, soon after she was admitted for her first prolonged stay. She has no family capable of caring for her. Two sons have not treated her well, per report. She was at the rehab briefly but they will not take her back. Here, she is bedbound. She is cachectic. She still does speak but the content of her language is minimal and vague. She doesn't like to be touched. An APS report was filed on her first admission from 03/13/19. She went briefly to the rehab; she was home only one night before she returned to the hospital. She came in with multiple bruises. Failing here. Staff asking for change in status to BOX OFFICE MANAGER, with minimal interventions, including stopping her in and out caths, as they upset her so much. Likely will develop urosepsis in absence of cath; advised will consult again with Meghan Fitzgerald's primary [facility] care doctor, and see if she feels this would be an appropriate change in direction of care. Exam Narrative Exam Narrative: thin, cachectic, lying on her side, pushing my hand away, mild psychic distress has obvious stool in her briefs, leaking out lungs distant, clear, no increased WOB heart tachycardic ext atrophy of muscles, very slender, generalized weakness neuro oriented to self only, repetitive language, minimal content, unable to express herself skin bruises have healed, could not examine for breakdown due to new stool, per nursing, better than they were Objective Objective Clinical Data: Abnormal lab results 05/06/19 05/06/19 Range/Units 07:20 07:20 RBC 3.81 L (4.00-5.20) m/cumm Hgb 10.8 L (12.0-15.5) g/dL Hct 33.6 L (36.0-46.0) % Absolute Monocytes 0.96 H (0.11-0.7) k/cumm Chloride 112 H (98-107) mmol/L BUN 55 H (7-18) mg/dL Creatinine 2.06 H (0.55-1.02) mg/dL Vital Signs Temperature 97.9 F 05/06/19 07:29 Temperature Source Tympanic 05/06/19 07:29 Pulse 81 05/06/19 07:29 Pulse Rhythm Regular 05/05/19 21:15 Respiratory Rate 16 05/06/19 07:29 Respiratory Effort Non-Labored 05/05/19 21:15 Respiratory Depth Normal 05/05/19 21:15 Respiratory Pattern Normal 05/05/19 21:15 Blood Pressure 135/65 05/06/19 07:29 Pulse Oximetry 97 05/06/19 07:29 Oxygen Delivery Method Room Air 05/06/19 07:29 Oxygen Flow Rate 0 05/06/19 07:29 Pain Level 0 05/06/19 07:29 Comment 05/05/19 23:41 Intake & Output 05/05/19 05/06/19 05/06/19 23:59 11:59 23:59 Intake Total 240 / 360 480 / 480 Balance 240 / 360 480 / 480 Weight 96 lb 12.527 oz Intake: Oral 240 / 360 480 / 480 Other: Urine Color Straw Pale Urine Appearance Clear Clear Comment pt was incontinent of urine incontinent of urine Stool Size Smear Small Stool Characteristics Soft Soft Brown Formed Black Green Voiding Methods Incontinent Incontinent Laboratory Results WBC 6.92 k/cumm (4.4-10.8) 05/06/19 07:20 RBC 3.81 m/cumm (4.00-5.20) L 05/06/19 07:20 Hgb 10.8 g/dL (12.0-15.5) L 05/06/19 07:20 Hct 33.6 % (36.0-46.0) L 05/06/19 07:20 MCV 88.2 fL (80-95) 05/06/19 07:20 MCH 28.3 pg (27.0-33.0) 05/06/19 07:20 MCHC 32.1 g/dL (32.0-36.0) 05/06/19 07:20 RDW 14.3 % (11.7-14.6) 05/06/19 07:20 Plt Count 320 x1000/uL (130-400) 05/06/19 07:20 MPV 9.7 fL (8.0-11.0) 05/06/19 07:20 Immature Gran % 0.1 05/06/19 07:20 Neutrophils % 60.9 05/06/19 07:20 Lymphocytes % 22.0 05/06/19 07:20 Monocytes % 13.9 05/06/19 07:20 Eosinophils % 2.7 05/06/19 07:20 Basophils % 0.4 05/06/19 07:20 Absolute Neutrophils 4.21 k/cumm (1.2-6.7) 05/06/19 07:20 Absolute Lymphocytes 1.52 k/cumm (1.2-3.4) 05/06/19 07:20 Absolute Monocytes 0.96 k/cumm (0.11-0.7) H 05/06/19 07:20 Absolute Eosinophils 0.19 k/cumm (0.0-0.7) 05/06/19 07:20 Absolute Basophils 0.03 k/cumm (0.0-0.2) 05/06/19 07:20 Sodium 145 mmol/L (136-145) 05/06/19 07:20 Potassium 4.8 mmol/L (3.5-5.1) 05/06/19 07:20 Chloride 112 mmol/L (98-107) H 05/06/19 07:20 Carbon Dioxide 23.2 mmol/L (21.0-32.0) 05/06/19 07:20 Anion Gap 9.8 mmol/L (3-11) 05/06/19 07:20 BUN 55 mg/dL (7-18) H 05/06/19 07:20 Creatinine 2.06 mg/dL (0.55-1.02) H 05/06/19 07:20 Estimated GFR/1.73 m2 23.54 (mL/min/1.73m2) 05/06/19 07:20 Glucose 92 mg/dL (74-106) 05/06/19 07:20 Calcium 9.5 mg/dL (8.5-10.1) 05/06/19 07:20 Magnesium Cancelled 04/30/19 05:35 Urine Color Yellow (Yellow) 05/01/19 13:35 Urine Clarity Cloudy (Clear) 05/01/19 13:35 Urine pH 6.0 (5-8) 05/01/19 13:35 Ur Specific [place] 1.015 (1.005-1.025) 05/01/19 13:35 Urine Protein 100 mg/dL (Negative) H 05/01/19 13:35 Urine Ketones Negative mg/dL (Negative) 05/01/19 13:35 Urine Blood Moderate (Negative) H 05/01/19 13:35 Urine Nitrite Negative (Negative) 05/01/19 13:35 Urine Bilirubin Negative (Negative) 05/01/19 13:35 Urine Urobilinogen 0.2 EU/dL (Up TO 0.2) 05/01/19 13:35 Ur Leukocyte Esterase Large (Negative) H 05/01/19 13:35 Urine RBC >50 HPF (0-2) H 05/01/19 13:35 Urine WBC >50 HPF (0-5) H 05/01/19 13:35 Ur Epithelial Cells Not Applicable 05/01/19 13:35 Urine Crystals Not Applicable 05/01/19 13:35 Urine Bacteria Not Applicable 05/01/19 13:35 Urine Mucus Not Applicable 05/01/19 13:35 Ur Culture Indicated? C&s done as ordered 05/01/19 13:35 Urine Glucose Negative mg/dL (Negative) 05/01/19 13:35
--- NOTE | 2019-05-06 15:23 | CMPROGNOTE_ITS ---
- If Service Date Differs Date of service: 05/06/19 Time of Service: 15:23 Care Management Progress Note S/O: CM spoke with Meghan's daughter over the phone she states she has spoken with skilled nursing Medicaid and the application is being processed. There are some additional forms required related to the sale of the house however per Meghan once those are completed patient should be qualified for LTM. Meghan will stay in contact with CM to provide updates from LTM. Daughter states her Mom would want to be comfortable and not have aggressive medical treatments. Daughter (DPSATURNINO) states she does not want Meghan stressed with intermittent cath due to discomfort and wants her to be comfortable with measures that would promote comfort including medication management if needed. NEMO did review this with palliative today, has met with Meghan in the past and will plan to see her on Sunday. Meghan has one son and daughter in law locally neither of them is willing to bring her home. Meghan will need assisted care placement once a payer source has been secured. [facility] in considering her for LTC. A: Meghan is a 74 year old female admitted with history of dementia, urinary retention, frequent UTI's and incontinence. P: Meghan will be discharged to LTC facility once there is a payer source identified. Anticipate Meghan will change to comfort measures only once she has been seen by palliative care. Her daughter Meghan and SOM is available by phone if needed contact number is .
[2019-05-06 17:04] VITALS: BP 120/63; PULSE 87; RESP 17; TEMP 36.3; O2SAT 99
[2019-05-07] MEDS: Levothyroxine 100 MCG TAB PO (06:45)
[2019-05-07] MEDS: Citalopram 10 MG TAB PO (08:39)
[2019-05-07] MEDS: Ferrous Sulfate 325 MG TAB PO (08:40)
[2019-05-07] MEDS: Tamsulosin 0.4 MG CAPCR PO (08:40)
[2019-05-07] MEDS: Pantoprazole 40 MG TABCR PO (08:40)
[2019-05-07] MEDS: Magnesium Chloride 64 MG TABCR PO (08:41)
[2019-05-07] MEDS: Folic Acid 1 MG TAB PO (08:41)
[2019-05-07] MEDS: QUEtiapine 25 MG TAB PO ×2 (08:43→19:18)
--- NOTE | 2019-05-07 09:35 | W.PALPGNOTE ---
Date of service: 05/07/19 Time of Service: 09:35 Assessment and Plan Assessment and plan (1) Urinary retention: Status: Chronic (2) Agitation: Status: Chronic (3) CKD (chronic kidney disease): Status: Chronic (4) Dementia: Status: Chronic Assessment and plan: Meghan is a 74-year-old woman with advanced dementia. She came in with severe agitation. Found to have a UTI which has been treated now for 4-5+ days. In speaking with her Shantal OCASIOA?daughter at comfort is the goal. They do want the catheter to be removed. They do not want further antibiotics for example if she were to develop a fever and congested cough they would not want antibiotics for pneumonia. They want medications geared to keeping her comfortable. They understand that it may be days to years, but wanted the goal to always be comfort. Dementia with agitation she is on quintan of pain. Today she is doing considerably better therefore will not make any dose adjustments She is a DNR/DNI I have communicated to the hospitalist, Dr. Kirby, and staff at [facility] regarding change to comfort's status. Dr. Kirby will make the appropriate changes in her orders. I want to thank Dr Cordero for seeing Meghan yesterday. We discussed her care in sign out. I have spent more than 50% of time in counseling with this patient. This document was created by LVL[employer] recognition and may contain grammatical and translation errors. Qualifiers: Dementia behavioral disturbance: with behavioral disturbance Dementia type: vascular dementia Qualified Code(s): F01.51 - Vascular dementia with behavioral disturbance Subjective Subjective Interval history since last seen: I have met Meghan about 2 months ago. At that time she had just moved here from [facility] as there was concern about her care with her son. Her son here stated that he was unable to take care of her. She does have a DPOAE and [place] phone number . In my conversation with her D AMARJITA clearly comfort is the goal. I did discuss use of antibiotics catheter etc. Again her DPOAE stressed keep her comfortable. I am meeting with the patient. At this moment patient appeared calm. Nursing states that she is more calm today her nurse Vidya has stated that unlike other days she seems more present Nursing took care of her few days ago stated she did swing at her and broke her glasses. Patient herself greeted me and Exam Narrative Exam Narrative: She is lying in bed. Her eyes are clear. She allowed me to listen to her heart which was regular. Lungs blunted inspiration no rales present. Abdomen was soft nontender. No apparent edema. ifficile Screen Final 05/06/19-1302 C Difficile Antigen Negative C Difficile Toxin Negative Interpretation Negative for toxigenic Clostridium difficile Organism 1 Klebsiella pneumoniae COLONY COUNT >100,000 COLONIES/ML Organism 2 GRAM NEGATIVE HIRAL,MIXED COLONY COUNT <10,000 COLONIES/ML Kleb pneu RESULT Ampicillin R Ampicillin/Sulbactam S Cefazolin S Ceftazidime S CEFTRIAXONE S Ciprofloxacin S Gentamicin S Nitrofurantoin I Imipenem S Levofloxacin S Tobramycin S Trimethoprim/Sulfamethoxazole S Piperacillin/Tazobactam S Objective Objective Clinical Data: Vital Signs Temperature 97.3 F L 05/06/19 17:04 Temperature Source Tympanic 05/06/19 17:04 Pulse 87 05/06/19 17:04 Pulse Rhythm Regular 05/07/19 02:45 Respiratory Rate 17 05/06/19 17:04 Respiratory Effort 05/07/19 02:45 Respiratory Depth Normal 05/07/19 02:45 Respiratory Pattern Normal 05/07/19 02:45 Blood Pressure 120/63 05/06/19 17:04 Pulse Oximetry 99 05/06/19 17:04 Oxygen Delivery Method Room Air 05/06/19 17:04 Oxygen Flow Rate 0 05/06/19 17:04 Pain Level 0 05/06/19 17:04 Comment 05/07/19 03:19 Intake & Output 05/06/19 05/06/19 05/07/19 11:59 23:59 11:59 Intake Total 480 / 720 240 / 720 Output Total Balance 480 / 719 239 / 719 Weight 96 lb 12.527 oz 98 lb 1.691 oz Intake: Oral 480 / 720 240 / 720 Output: Stool Other: Urine Color Pale Yellow Urine Appearance Clear Clear Clear Comment incontinent of urine pt incontinent to urine and stool multiple times this shift pt soaked bed through pad and two top sheets at this time. Stool Size Copious Large Stool Characteristics Soft Liquid Liquid Mucoid Mucoid Brown Brown Voiding Methods Incontinent Incontinent Incontinent Laboratory Results WBC 6.92 k/cumm (4.4-10.8) 05/06/19 07:20 RBC 3.81 m/cumm (4.00-5.20) L 05/06/19 07:20 Hgb 10.8 g/dL (12.0-15.5) L 05/06/19 07:20 Hct 33.6 % (36.0-46.0) L 05/06/19 07:20 MCV 88.2 fL (80-95) 05/06/19 07:20 MCH 28.3 pg (27.0-33.0) 05/06/19 07:20 MCHC 32.1 g/dL (32.0-36.0) 05/06/19 07:20 RDW 14.3 % (11.7-14.6) 05/06/19 07:20 Plt Count 320 x1000/uL (130-400) 05/06/19 07:20 MPV 9.7 fL (8.0-11.0) 05/06/19 07:20 Immature Gran % 0.1 05/06/19 07:20 Neutrophils % 60.9 05/06/19 07:20 Lymphocytes % 22.0 05/06/19 07:20 Monocytes % 13.9 05/06/19 07:20 Eosinophils % 2.7 05/06/19 07:20 Basophils % 0.4 05/06/19 07:20 Absolute Neutrophils 4.21 k/cumm (1.2-6.7) 05/06/19 07:20 Absolute Lymphocytes 1.52 k/cumm (1.2-3.4) 05/06/19 07:20 Absolute Monocytes 0.96 k/cumm (0.11-0.7) H 05/06/19 07:20 Absolute Eosinophils 0.19 k/cumm (0.0-0.7) 05/06/19 07:20 Absolute Basophils 0.03 k/cumm (0.0-0.2) 05/06/19 07:20 Sodium 145 mmol/L (136-145) 05/06/19 07:20 Potassium 4.8 mmol/L (3.5-5.1) 05/06/19 07:20 Chloride 112 mmol/L (98-107) H 05/06/19 07:20 Carbon Dioxide 23.2 mmol/L (21.0-32.0) 05/06/19 07:20 Anion Gap 9.8 mmol/L (3-11) 05/06/19 07:20 BUN 55 mg/dL (7-18) H 05/06/19 07:20 Creatinine 2.06 mg/dL (0.55-1.02) H 05/06/19 07:20 Estimated GFR/1.73 m2 23.54 (mL/min/1.73m2) 05/06/19 07:20 Glucose 92 mg/dL (74-106) 05/06/19 07:20 Calcium 9.5 mg/dL (8.5-10.1) 05/06/19 07:20 Magnesium Cancelled 04/30/19 05:35 Urine Color Yellow (Yellow) 05/01/19 13:35 Urine Clarity Cloudy (Clear) 05/01/19 13:35 Urine pH 6.0 (5-8) 05/01/19 13:35 Ur Specific [place] 1.015 (1.005-1.025) 05/01/19 13:35 Urine Protein 100 mg/dL (Negative) H 05/01/19 13:35 Urine Ketones Negative mg/dL (Negative) 05/01/19 13:35 Urine Blood Moderate (Negative) H 05/01/19 13:35 Urine Nitrite Negative (Negative) 05/01/19 13:35 Urine Bilirubin Negative (Negative) 05/01/19 13:35 Urine Urobilinogen 0.2 EU/dL (Up TO 0.2) 05/01/19 13:35 Ur Leukocyte Esterase Large (Negative) H 05/01/19 13:35 Urine RBC >50 HPF (0-2) H 05/01/19 13:35 Urine WBC >50 HPF (0-5) H 05/01/19 13:35 Ur Epithelial Cells Not Applicable 05/01/19 13:35 Urine Crystals Not Applicable 05/01/19 13:35 Urine Bacteria Not Applicable 05/01/19 13:35 Urine Mucus Not Applicable 05/01/19 13:35 Ur Culture Indicated? C&s done as ordered 05/01/19 13:35 Urine Glucose Negative mg/dL (Negative) 05/01/19 13:35
--- NOTE | 2019-05-07 09:59 | CMPROGNOTE_ITS ---
Care Management Progress Note Dr. Vivar provided Palliative Care consult and discussed goals of care with Meghan; daughter of patient. Per Dr. Vivar, Meghan will transition to TAR DISTRIBUTOR OPERATOR care, please refer to her note for further details.
--- NOTE | 2019-05-07 13:47 | W.PM.PROGNOT ---
Date of Service Date of service: 05/07/19 Time of Service: 13:47 Assessment and Plan Assessment and plan (1) Comfort measures only status: Status: Acute Assessment and plan: Case discussed with Dr. Vivar and her conversation with patient's daughter. I am transitioning Mrs. Marin to comfort measures as the main focus of but I am going to try to continue with some of her medications that may enhance her comfort or prevent agitation. Given the discussion regarding antibiotics for future infections I think this also applies to the current urinary tract infection. The treatment has been difficult as she has refused some doses of antibiotic. Her mental status has not improved with treatment of urinary tract infection and with her retention I think it is only a matter of time before there is another UTI. Continuing treatment at this time seems to just be prolonging suffering and not improving quality of life. I am going to continue on her thyroid medication and PPI as withdrawing these medications now may lead to some distress. Likewise continuing tamsulosin in the event that it is helping with some spontaneous voiding. I am stopping the clean intermittent catheterizations as noted below. Continue citalopram. I recognize that her adherence with taking medications is likely to be intermittent at best. (2) Urinary retention: Status: Chronic Assessment and plan: Very distressful to have clean intermittent catheterizations and goal is comfort measures so I am not going to push the possibility of suprapubic catheter placement. Discontinue catheterizations and bladder scans. She likely is going to have some overflow incontinence. Monitor for pain or increased agitation that might be the result of distended bladder and medicate with morphine if appears to be in pain. (3) Agitation: Status: Chronic Assessment and plan: Continue Seroquel at current dose. Sublingual Ativan for breakthrough agitation. (4) Dementia: Status: Chronic Assessment and plan: Underlying problem for the decline in her functional status and quality of life. Far beyond the level where any medication is going to help with memory. Symptom management for pain and agitation as above. Continue citalopram. Qualifiers: Dementia type: vascular dementia Dementia behavioral disturbance: with behavioral disturbance Qualified Code(s): F01.51 - Vascular dementia with behavioral disturbance (5) Hypothyroid: Status: Chronic Assessment and plan: Continue to offer thyroid replacement although she probably will have days where she will refused to take medication. If more days than not she is refusing to take medications I will discontinue efforts at giving her thyroid medication. Qualifiers: Hypothyroidism type: acquired Qualified Code(s): E03.9 - Hypothyroidism, unspecified Subjective Subjective Interval history since last seen: Patient is lying in bed, not agitated at present and answers all questions with fine. Per conversation with Dr. Vivar, who spoke with Mrs. Goldstein daughter, family would like to transition to comfort measures. There was an explicit question regarding antibiotics for infections to which her daughter indicated she would not want future infections treated. I am assuming this preference applies to the present urinary tract infection. She has not been adherent with medications, refusing or spitting out pills on several occasions. Antibiotic treatment for her UTI has not improved her agitation or mental status. Exam Narrative Exam Narrative: Sleeping, arousable, limited vocalizations. Answers fine to all questions. Does not follow simple requests such as taking a deep breath or squeezing my hand. Presently not agitated. Diminished breath sounds at both bases but no crackles or wheeze. No heart murmur. Bowel sounds are present but soft. No apparent tenderness to light palpation of the abdomen. Extremities are thin. She has spontaneous movement of all extremities. Objective Objective Clinical Data: Vital Signs Temperature 36.3 C L 05/06/19 17:04 Temperature Source Tympanic 05/06/19 17:04 Pulse 87 05/06/19 17:04 Pulse Rhythm Regular 05/07/19 08:30 Respiratory Rate 17 05/06/19 17:04 Respiratory Effort 05/07/19 08:30 Respiratory Depth Normal 05/07/19 08:30 Respiratory Pattern Normal 05/07/19 08:30 Blood Pressure 120/63 05/06/19 17:04 Pulse Oximetry 99 05/06/19 17:04 Oxygen Delivery Method Room Air 05/06/19 17:04 Oxygen Flow Rate 0 05/06/19 17:04 Pain Level 0 05/06/19 17:04 Comment 05/07/19 11:31 Intake & Output 05/06/19 05/07/19 05/07/19 23:59 11:59 23:59 Intake Total 240 / 720 480 / 720 240 / 720 Output Total Balance 239 / 719 480 / 720 240 / 720 Weight 44.5 kg Intake: Oral 240 / 720 480 / 720 240 / 720 Output: Stool Other: Urine Color Yellow Urine Appearance Clear Clear Comment pt incontinent to urine and stool multiple times this shift pt was bs for 725. pt was straight cath for 800 cloudy urine Stool Size Large Moderate Large Stool Characteristics Liquid Soft Liquid Mucoid Brown Brown Brown Voiding Methods Incontinent Incontinent Laboratory Results WBC 6.92 k/cumm (4.4-10.8) 05/06/19 07:20 RBC 3.81 m/cumm (4.00-5.20) L 05/06/19 07:20 Hgb 10.8 g/dL (12.0-15.5) L 05/06/19 07:20 Hct 33.6 % (36.0-46.0) L 05/06/19 07:20 MCV 88.2 fL (80-95) 05/06/19 07:20 MCH 28.3 pg (27.0-33.0) 05/06/19 07:20 MCHC 32.1 g/dL (32.0-36.0) 05/06/19 07:20 RDW 14.3 % (11.7-14.6) 05/06/19 07:20 Plt Count 320 x1000/uL (130-400) 05/06/19 07:20 MPV 9.7 fL (8.0-11.0) 05/06/19 07:20 Immature Gran % 0.1 05/06/19 07:20 Neutrophils % 60.9 05/06/19 07:20 Lymphocytes % 22.0 05/06/19 07:20 Monocytes % 13.9 05/06/19 07:20 Eosinophils % 2.7 05/06/19 07:20 Basophils % 0.4 05/06/19 07:20 Absolute Neutrophils 4.21 k/cumm (1.2-6.7) 05/06/19 07:20 Absolute Lymphocytes 1.52 k/cumm (1.2-3.4) 05/06/19 07:20 Absolute Monocytes 0.96 k/cumm (0.11-0.7) H 05/06/19 07:20 Absolute Eosinophils 0.19 k/cumm (0.0-0.7) 05/06/19 07:20 Absolute Basophils 0.03 k/cumm (0.0-0.2) 05/06/19 07:20 Sodium 145 mmol/L (136-145) 05/06/19 07:20 Potassium 4.8 mmol/L (3.5-5.1) 05/06/19 07:20 Chloride 112 mmol/L (98-107) H 05/06/19 07:20 Carbon Dioxide 23.2 mmol/L (21.0-32.0) 05/06/19 07:20 Anion Gap 9.8 mmol/L (3-11) 05/06/19 07:20 BUN 55 mg/dL (7-18) H 05/06/19 07:20 Creatinine 2.06 mg/dL (0.55-1.02) H 05/06/19 07:20 Estimated GFR/1.73 m2 23.54 (mL/min/1.73m2) 05/06/19 07:20 Glucose 92 mg/dL (74-106) 05/06/19 07:20 Calcium 9.5 mg/dL (8.5-10.1) 05/06/19 07:20 Magnesium Cancelled 04/30/19 05:35 Urine Color Yellow (Yellow) 05/01/19 13:35 Urine Clarity Cloudy (Clear) 05/01/19 13:35 Urine pH 6.0 (5-8) 05/01/19 13:35 Ur Specific [place] 1.015 (1.005-1.025) 05/01/19 13:35 Urine Protein 100 mg/dL (Negative) H 05/01/19 13:35 Urine Ketones Negative mg/dL (Negative) 05/01/19 13:35 Urine Blood Moderate (Negative) H 05/01/19 13:35 Urine Nitrite Negative (Negative) 05/01/19 13:35 Urine Bilirubin Negative (Negative) 05/01/19 13:35 Urine Urobilinogen 0.2 EU/dL (Up TO 0.2) 05/01/19 13:35 Ur Leukocyte Esterase Large (Negative) H 05/01/19 13:35 Urine RBC >50 HPF (0-2) H 05/01/19 13:35 Urine WBC >50 HPF (0-5) H 05/01/19 13:35 Ur Epithelial Cells Not Applicable 05/01/19 13:35 Urine Crystals Not Applicable 05/01/19 13:35 Urine Bacteria Not Applicable 05/01/19 13:35 Urine Mucus Not Applicable 05/01/19 13:35 Ur Culture Indicated? C&s done as ordered 05/01/19 13:35 Urine Glucose Negative mg/dL (Negative) 05/01/19 13:35
[2019-05-07] MEDS: Loperamide 2 MG CAP PO (15:00)
[2019-05-08] MEDS: Loperamide 2 MG CAP PO ×3 (05:56→19:57)
[2019-05-08] MEDS: Levothyroxine 100 MCG TAB PO (05:56)
[2019-05-08] MEDS: Tamsulosin 0.4 MG CAPCR PO (07:45)
[2019-05-08] MEDS: Pantoprazole 40 MG TABCR PO (07:45)
[2019-05-08] MEDS: QUEtiapine 25 MG TAB PO ×2 (07:45→19:58)
[2019-05-08] MEDS: Citalopram 10 MG TAB PO (07:45)
--- NOTE | 2019-05-08 16:21 | PDOC.CMACT ---
- If Service Date Differs Date of service: 05/08/19 Time of Service: 16:21 Care Management Activity Note S/O: Meghan was transitioned to comfort measures yesterday and catheterizations and bladder scans have been discontinued by provider. Since being in [facility], Meghan has had music therapy. CM will coordinate a service animal visit for her when available, as her family reports that Meghan likes animals. A: Meghan is a 74 year old female admitted to 1 for detention care related to urinary retention and frequent intermittent catheterizing. P: Meghan will remain in SB[facility] while CM continues to explore safe discharge plan. Transportation will be via ambulance at time of discharge due to dementia.
[2019-05-09] MEDS: Levothyroxine 100 MCG TAB PO (06:03)
[2019-05-09] MEDS: Pantoprazole 40 MG TABCR PO (08:15)
[2019-05-09] MEDS: Citalopram 10 MG TAB PO (08:16)
[2019-05-09] MEDS: Tamsulosin 0.4 MG CAPCR PO (08:16)
[2019-05-09] MEDS: QUEtiapine 25 MG TAB PO ×2 (08:16→20:37)
[2019-05-09] MEDS: Loperamide 2 MG CAP PO ×2 (10:17→12:42)
[2019-05-10] MEDS: Levothyroxine 100 MCG TAB PO (06:31)
[2019-05-10] MEDS: Tamsulosin 0.4 MG CAPCR PO (08:45)
[2019-05-10] MEDS: QUEtiapine 25 MG TAB PO ×2 (08:45→19:59)
[2019-05-10] MEDS: Citalopram 10 MG TAB PO (08:45)
[2019-05-10] MEDS: Pantoprazole 40 MG TABCR PO (08:45)
[2019-05-10] MEDS: Acetaminophen 325 MG TAB 650 MG PO (08:46)
[2019-05-11] MEDS: Levothyroxine 100 MCG TAB PO (06:28)
[2019-05-11] MEDS: Tamsulosin 0.4 MG CAPCR PO (08:16)
[2019-05-11] MEDS: Citalopram 10 MG TAB PO (08:17)
[2019-05-11] MEDS: QUEtiapine 25 MG TAB PO ×2 (08:17→19:12)
[2019-05-11] MEDS: Acetaminophen 325 MG TAB 650 MG PO (08:17)
[2019-05-11] MEDS: Pantoprazole 40 MG TABCR PO (08:17)
[2019-05-12] MEDS: Levothyroxine 100 MCG TAB PO (06:34)
[2019-05-12] MEDS: Pantoprazole 40 MG TABCR PO (09:14)
[2019-05-12] MEDS: Citalopram 10 MG TAB PO (09:14)
[2019-05-12] MEDS: Tamsulosin 0.4 MG CAPCR PO (09:14)
[2019-05-12] MEDS: QUEtiapine 25 MG TAB PO ×2 (09:14→19:51)
[2019-05-13] MEDS: Levothyroxine 100 MCG TAB PO (06:50)
[2019-05-13] MEDS: Pantoprazole 40 MG TABCR PO (09:10)
[2019-05-13] MEDS: QUEtiapine 25 MG TAB PO ×2 (09:11→20:17)
[2019-05-13] MEDS: Tamsulosin 0.4 MG CAPCR PO (09:11)
[2019-05-13] MEDS: Citalopram 10 MG TAB PO (09:11)
--- NOTE | 2019-05-13 10:02 | W.NUTRFU ---
Date of service: 05/13/19 Time of Service: 10:02 Nutritional Follow up NOTE: Meghan continues to meet nutrient/fluid needs by mouth. Weight has been stable, low BMI putting her at risk for skin breakdown. Continues to take supplements BID. Will continue to follow and adjust meal plan as needed for optimal intake. Time Spent in Nutritional Counseling and Treatment: 5 min face to face
[2019-05-14] MEDS: Levothyroxine 100 MCG TAB PO (06:12)
[2019-05-14] MEDS: Tamsulosin 0.4 MG CAPCR PO (09:24)
[2019-05-14] MEDS: Pantoprazole 40 MG TABCR PO (09:24)
[2019-05-14] MEDS: Citalopram 10 MG TAB PO (09:24)
[2019-05-14] MEDS: QUEtiapine 25 MG TAB PO ×2 (09:25→20:44)
[2019-05-15] MEDS: Levothyroxine 100 MCG TAB PO (06:32)
[2019-05-15] MEDS: Pantoprazole 40 MG TABCR PO (08:28)
[2019-05-15] MEDS: QUEtiapine 25 MG TAB PO ×2 (08:28→20:30)
[2019-05-15] MEDS: Tamsulosin 0.4 MG CAPCR PO (08:28)
[2019-05-15] MEDS: Citalopram 10 MG TAB PO (08:28)
--- NOTE | 2019-05-15 17:52 | PDOC.CMACT ---
- If Service Date Differs Date of service: 05/15/19 Time of Service: 17:52 Care Management Activity Note S/O: Meghan remains comfort measures yesterday she remains SB2, Meghan has had music therapy. CM will coordinate a service animal visit for her when available, as her family reports that Meghan likes animals.Meghan has had her nails painted she enjoys company and visits with the staff. She appears to cheer up when staff enters the room and smiles often. Meghan has a visit with her daughter Meghan and son in law Turner today from [place]. She smiled often and showed her daughter her nails that were painted. A: Meghan is a 74 year old female awaiting a safe discharge plan in swing bed level 2 P: Meghan will remain in SB2, CM is coordinated disposition to the [facility] who have agreed to take her once a payment source has been secures. CM faxed the remaining paperwork to LTM today including the Deed to the house. CM confirmed the house is now on the market. DPOA added CM to the consent list for LTM which will allow follow up with the [facility] and pending application. Transportation will be via ambulance at time of discharge due to dementia.
[2019-05-16] MEDS: Levothyroxine 100 MCG TAB PO (05:12)
[2019-05-16] MEDS: Pantoprazole 40 MG TABCR PO (08:32)
[2019-05-16] MEDS: QUEtiapine 25 MG TAB PO ×2 (08:33→22:55)
[2019-05-16] MEDS: Citalopram 10 MG TAB PO (08:33)
[2019-05-16] MEDS: Tamsulosin 0.4 MG CAPCR PO (08:33)
--- NOTE | 2019-05-16 09:54 | W.NUTRFU ---
Date of service: 05/16/19 Time of Service: 09:54 Nutritional Follow up NOTE: recommend diet liberalized to regular to provide Meghan with preferred meal options and optimal intake. Heart healthy diet not warranted. Nursing to adjust insulin as needed. Time Spent in Nutritional Counseling and Treatment: 0 time spent face to face
[2019-05-17] MEDS: Levothyroxine 100 MCG TAB PO (05:42)
[2019-05-17] MEDS: Citalopram 10 MG TAB PO (08:39)
[2019-05-17] MEDS: Tamsulosin 0.4 MG CAPCR PO (08:39)
[2019-05-17] MEDS: QUEtiapine 25 MG TAB PO ×2 (08:39→19:32)
[2019-05-17] MEDS: Pantoprazole 40 MG TABCR PO (08:39)
[2019-05-18] MEDS: Citalopram 10 MG TAB PO (08:06)
[2019-05-18] MEDS: QUEtiapine 25 MG TAB PO ×2 (08:06→20:26)
[2019-05-18] MEDS: Tamsulosin 0.4 MG CAPCR PO (08:07)
[2019-05-18] MEDS: Pantoprazole 40 MG TABCR PO (08:07)
[2019-05-18] MEDS: Loperamide 2 MG CAP PO ×2 (10:25→11:13)
[2019-05-18 18:46] VITALS: TEMP 38.4
[2019-05-18] MEDS: Acetaminophen 325 MG TAB 650 MG PO (18:46)
[2019-05-19] MEDS: Levothyroxine 100 MCG TAB PO (06:11)
[2019-05-19] MEDS: Tamsulosin 0.4 MG CAPCR PO (08:19)
[2019-05-19] MEDS: Pantoprazole 40 MG TABCR PO (08:20)
[2019-05-19] MEDS: Citalopram 10 MG TAB PO (08:20)
[2019-05-19] MEDS: QUEtiapine 25 MG TAB PO ×2 (08:20→19:57)
--- NOTE | 2019-05-19 12:07 | NUR.NOTE ---
Nursing Note: 1155: SANDWICH AND DRINK CART OPERATOR comes to this scribe concerned with pt's lateral right heel at the bony prominence. area is pink and blanchable at the bony prominence. pt lays on right side with right leg tucked under left which allows for pressure on the right bony prominence. pt will not allow for sheep skin under bilateral feet, pt will not allow for pillow to take pressure off of bilateral feet, pt will not allow for off loading of ankles with pillows and finally pt is not willing to allow for mepilex dressing to be placed over bony prominence of right ankle. all attempts have been made at this time by this scribe. pt noted to throw pillows on the floor and state they are garbage. in an effort to have pt shift weight off of her right side, pt's bed turned so that pt can continue to see out the door looking towards the nursing station. nursing and SANDWICH AND DRINK CART OPERATOR attempt to turn pt off of right side; pt shifts slightly to the middle and pressure is somewhat less on right ankle. pt bed remains plugged in and connected to [employer]. continue to monitor.
[2019-05-20] MEDS: Levothyroxine 100 MCG TAB PO (06:06)
[2019-05-20] MEDS: Pantoprazole 40 MG TABCR PO (08:48)
[2019-05-20] MEDS: QUEtiapine 25 MG TAB PO ×2 (08:49→20:17)
[2019-05-20] MEDS: Tamsulosin 0.4 MG CAPCR PO (08:49)
[2019-05-20] MEDS: Citalopram 10 MG TAB PO (08:49)
--- NOTE | 2019-05-20 11:38 | W.NUTRFU ---
Date of service: 05/20/19 Time of Service: 11:38 Nutritional Follow up NOTE: Meghan has been nutritionally stable in last 7 days. Diet liberalized to Regular Diet, po intake remains excellent. Pallative care in process, no recent labs to assess blood sugars with current diet desired at this time. Continues to receives glucerna BID. To be placed in SNF when transfer available. will continue to monitor and adjust meal plan as needed. Time Spent in Nutritional Counseling and Treatment: 0 time spent face to face
[2019-05-20] MEDS: Acetaminophen 325 MG TAB 650 MG PO (12:57)
[2019-05-21] MEDS: Levothyroxine 100 MCG TAB PO (05:20)
[2019-05-21] MEDS: Pantoprazole 40 MG TABCR PO (09:37)
[2019-05-21] MEDS: Citalopram 10 MG TAB PO (09:37)
[2019-05-21] MEDS: QUEtiapine 25 MG TAB PO (09:37)
[2019-05-21] MEDS: Tamsulosin 0.4 MG CAPCR PO (09:37)
[2019-05-21] MEDS: Loperamide 2 MG CAP PO (13:44)
[2019-05-22] MEDS: Citalopram 10 MG TAB PO (08:39)
[2019-05-22] MEDS: QUEtiapine 25 MG TAB PO ×2 (08:39→19:47)
[2019-05-22] MEDS: Tamsulosin 0.4 MG CAPCR PO (08:39)
[2019-05-22] MEDS: Levothyroxine 100 MCG TAB PO (08:39)
[2019-05-22] MEDS: Pantoprazole 40 MG TABCR PO (08:39)
--- NOTE | 2019-05-22 15:41 | CMACTNOTE_ITS ---
- If Service Date Differs Date of service: 05/22/19 Time of Service: 15:41 Care Management Activity Note S/O: Meghan remains on comfort measures in SB2. She enjoys music and pet therapy when available. She also enjoys spending time with staff and seems very fond of one nurse in particular. Meghan has seemed much happier and relaxed since all invasive procedures were discontinued.. A: Meghan is a 74 year old female awaiting a safe discharge plan in swing bed level 2 P: Meghan will remain in SB2. NEMO is coordinating disposition to the [facility] who have agreed to take her once a payment source has been secured. NEMO was notified by Meghan Adams (DPOA/daughter) yesterday that Meghan's house has been taken off the market due to family discord. It is unclear if or how this will impact final approval of Meghan's LTM application and payer source for [facility]. The clinical review has been completed and approved for [facility] and final review of the financial piece is pending. CM will continue to support patient, family and discharge planning needs.
[2019-05-23] MEDS: Levothyroxine 100 MCG TAB PO (06:01)
[2019-05-23] MEDS: QUEtiapine 25 MG TAB PO ×2 (08:15→19:59)
[2019-05-23] MEDS: Tamsulosin 0.4 MG CAPCR PO (08:15)
[2019-05-23] MEDS: Pantoprazole 40 MG TABCR PO (08:15)
[2019-05-23] MEDS: Citalopram 10 MG TAB PO (08:16)
[2019-05-23] MEDS: Acetaminophen 325 MG TAB 650 MG PO ×2 (08:29→19:59)
[2019-05-24] MEDS: Levothyroxine 100 MCG TAB PO (06:36)
[2019-05-24] MEDS: Tamsulosin 0.4 MG CAPCR PO (08:33)
[2019-05-24] MEDS: Pantoprazole 40 MG TABCR PO (08:33)
[2019-05-24] MEDS: Citalopram 10 MG TAB PO (08:33)
[2019-05-24] MEDS: QUEtiapine 25 MG TAB PO ×2 (08:33→19:07)
[2019-05-24] MEDS: Loperamide 2 MG CAP PO (08:33)
[2019-05-25] MEDS: Citalopram 10 MG TAB PO (09:04)
[2019-05-25] MEDS: Levothyroxine 100 MCG TAB PO (09:05)
[2019-05-25] MEDS: QUEtiapine 25 MG TAB PO ×2 (09:05→20:24)
[2019-05-26] MEDS: Levothyroxine 100 MCG TAB PO (06:32)
[2019-05-26] MEDS: Citalopram 10 MG TAB PO (08:58)
[2019-05-26] MEDS: Pantoprazole 40 MG TABCR PO (08:58)
[2019-05-26] MEDS: Tamsulosin 0.4 MG CAPCR PO (08:58)
[2019-05-26] MEDS: QUEtiapine 25 MG TAB PO ×2 (08:58→18:22)
[2019-05-26] MEDS: Loperamide 2 MG CAP PO (09:06)
[2019-05-26] MEDS: Acetaminophen 325 MG TAB 650 MG PO ×3 (09:07→21:44)
--- NOTE | 2019-05-26 15:24 | PDOC.CMPRO ---
- If Service Date Differs Date of service: 05/26/19 Time of Service: 15:24 Care Management Progress Note S/O: Meghan remains comfort measures only she is awaiting for placement at the [facility] once and if the remote computer terminal operator medicaid goes through. CM did speak with LTM clinical RN which have been approved, now awaiting financial approval. Meghan has done well with consistent staff, she appears to enjoy visiting with staff and having her nails done. A: Meghan is a 74 year old female awaiting a safe discharge plan in swing bed level 2 P: Meghan will remain in SB2, CM is coordinated disposition to the [facility] who have agreed to take her once a payment source has been secured. Anticipate she will be transported via wheelchair van.
[2019-05-26] MEDS: Cholestyramine/Aspartame PKT 1 EACH PO (16:41)
[2019-05-27] MEDS: Acetaminophen 325 MG TAB 650 MG PO ×3 (08:36→21:19)
[2019-05-27] MEDS: Citalopram 10 MG TAB PO (08:37)
[2019-05-27] MEDS: Tamsulosin 0.4 MG CAPCR PO (08:37)
[2019-05-27] MEDS: QUEtiapine 25 MG TAB PO ×2 (08:37→21:19)
[2019-05-27] MEDS: Pantoprazole 40 MG TABCR PO (08:37)
[2019-05-27] MEDS: Levothyroxine 100 MCG TAB PO (08:38)
[2019-05-27] MEDS: traMADol 50 MG TAB PO (15:36)
[2019-05-28] MEDS: Acetaminophen 325 MG TAB 650 MG PO ×4 (02:46→13:26)
[2019-05-28] MEDS: Levothyroxine 100 MCG TAB PO (06:31)
[2019-05-28] MEDS: Pantoprazole 40 MG TABCR PO (08:01)
[2019-05-28] MEDS: Citalopram 10 MG TAB PO (08:01)
[2019-05-28] MEDS: QUEtiapine 25 MG TAB PO ×2 (08:02→19:33)
[2019-05-28] MEDS: Tamsulosin 0.4 MG CAPCR PO (08:02)
[2019-05-28] MEDS: traMADol 50 MG TAB PO ×2 (10:12→19:33)
[2019-05-28] MEDS: Loperamide 2 MG CAP PO (11:31)
[2019-05-28] MEDS: Cholestyramine/Aspartame PKT 1 EACH PO (16:23)
[2019-05-29] MEDS: Acetaminophen 325 MG TAB 650 MG PO ×2 (15:51→18:09)
[2019-05-29] MEDS: Cholestyramine/Aspartame PKT 1 EACH PO (17:08)
[2019-05-30] MEDS: Citalopram 10 MG TAB PO (08:44)
[2019-05-30] MEDS: QUEtiapine 25 MG TAB PO (08:44)
--- NOTE | 2019-05-30 13:16 | W.NUTRFU ---
Date of service: 05/30/19 Time of Service: 13:17 Nutritional Follow up NOTE: Nursing reports very poor intake, mostly liquids such as hot cocoa, glucerna, juices. Will continue to provide meals/beverages as desired. Met with Meghan at lunch today. She refuses lunch or beverages at this time. Continues at high nutritional risk. Time Spent in Nutritional Counseling and Treatment: 5 min spent face to face
[2019-05-30] MEDS: fentaNYL 12 MCG PATCH TD (17:24)
[2019-05-31] MEDS: QUEtiapine 25 MG TAB PO ×2 (08:47→21:05)
--- NOTE | 2019-05-31 17:35 | CMPROGNOTE_ITS ---
- If Service Date Differs Date of service: 05/31/19 Time of Service: 17:35 Care Management Progress Note S/O: Meghan remains comfort measures only. She is eating and drinking only minimal amounts and is often found sleeping. She continues to resist care when approached and no longer gets OOB . Meghan was started on a Fentanyl patch for pain and appears relaxed and comfortable most of the time. A: Meghan is a 74 year old female awaiting a safe discharge plan in swing bed level 2 P: Meghan will remain in SB2 on comfort measures.. The residential Medicaid application was denied since her house is no longer on the market. Meghan will remain at [facility] as she still has no payer source for SNF placement. will continue to support Meghan and her family and participate in ensuring her comfort is maintained.
[2019-05-31] MEDS: Acetaminophen 325 MG TAB 650 MG PO (18:47)
[2019-06-02] MEDS: Acetaminophen Solution 650 MG/20.3 ML CUP PO (02:27)
[2019-06-02] MEDS: QUEtiapine 25 MG TAB PO (12:57)
[2019-06-02] MEDS: Citalopram 10 MG TAB PO (12:57)
[2019-06-02] MEDS: Levothyroxine 100 MCG TAB PO (12:58)
[2019-06-02] MEDS: Pantoprazole 40 MG TABCR PO (12:58)
[2019-06-02] MEDS: fentaNYL 12 MCG PATCH TD (16:14)
[2019-06-02] MEDS: Cholestyramine/Aspartame PKT 1 EACH PO (16:16)
[2019-06-02] MEDS: Patch Removal 1 EACH TP (20:52)
--- NOTE | 2019-06-03 15:34 | PCPN_ITS ---
Date of service: 06/03/19 Assessment and Plan Assessment and plan (1) Palliative care patient: Status: Chronic Assessment and plan: Followed by both Dr Vivar and myself. She looks comfortable. No signs of the agitation she had when I saw her last. Very weak. Bedbound. On BIOLOGICS SPECIALIST. Did not receive antibiotics for her recent purulent urine. Doesn't appear to have any pain. Continue low dose fentanyl patch. Did discontinue some medications today as swallowing becomes more difficult. Will continue to whittle down her list. (2) Comfort measures only status: Status: Acute Assessment and plan: MEdications should only be aimed at those giving immediate relief of symptoms. No long-term meds needed at this time. (3) Poor fluid intake: Status: Acute Assessment and plan: Will continue to take in less and less. No IVF. Part of natural process of dying. (4) Cachexia: Status: Acute Assessment and plan: Thinner than she was at last visit. Her cause of should include this with malnutrition, unless she ends up dying of urinary sepsis. Subjective Subjective Patient reports: pain is less (no furrowed brow, no moan) Interval history since last seen: Meghan's nurse, Irma Gonzalez, ISABELLE asked me to see her today. She feels that Meghan has been failing faster over the last week. She is eating minimally. She is lying in bed, not watching TV, not interacting, no energy at all. She is bedbound. Her urine has appeared purulent recently, per nursing. As she is on BIOLOGICS SPECIALIST, no testing was done. Note that she is no longer agitated. She is minimally verbal, but has been so for a while. She is unable to carry on a conversation. Exam Narrative Exam Narrative: Sleeping, arousable, limited vocalizations. Looks comfortable. Answers no to all questions. Does not follow simple requests such as taking a deep breath or squeezing my hand. Not agitated. Very weak. Diminished breath sounds at both bases but no crackles or wheeze. No heart murmur. Bowel sounds are present but soft. No apparent tenderness to light palpation of the abdomen. Extremities are thin. She has spontaneous movement of all extremities. No obvious skin breakdown; none reported by nurses. She does not appear frightened. [place] music playing on the radio (she reportedly prefers this, even though we are almost into June). Objective Objective Clinical Data: Vital Signs Temperature 101.1 F H 05/18/19 18:46 Temperature Source Tympanic 05/06/19 17:04 Pulse 87 05/06/19 17:04 Pulse Rhythm Regular 05/07/19 08:30 Respiratory Rate 17 05/06/19 17:04 Respiratory Effort 06/03/19 10:23 Respiratory Depth Normal 06/03/19 10:23 Respiratory Pattern Normal 06/03/19 10:23 Blood Pressure 120/63 05/06/19 17:04 Pulse Oximetry 99 05/06/19 17:04 Oxygen Delivery Method Room Air 05/06/19 17:04 Oxygen Flow Rate 0 05/06/19 17:04 Pain Level 5 06/02/19 02:27 Comment 05/07/19 11:31 Intake & Output 06/02/19 06/03/19 06/03/19 23:59 11:59 23:59 Intake Total 600 / 960 120 / 360 240 / 360 Balance 600 / 960 120 / 360 240 / 360 Intake: Oral 600 / 960 120 / 360 240 / 360 Other: Urine Color Yellow Yellow Urine Appearance Clear Cloudy Urine Odor None Normal Comment small void Voiding Methods Incontinent Incontinent Incontinent Laboratory Results WBC 6.92 k/cumm (4.4-10.8) 05/06/19 07:20 RBC 3.81 m/cumm (4.00-5.20) L 05/06/19 07:20 Hgb 10.8 g/dL (12.0-15.5) L 05/06/19 07:20 Hct 33.6 % (36.0-46.0) L 05/06/19 07:20 MCV 88.2 fL (80-95) 05/06/19 07:20 MCH 28.3 pg (27.0-33.0) 05/06/19 07:20 MCHC 32.1 g/dL (32.0-36.0) 05/06/19 07:20 RDW 14.3 % (11.7-14.6) 05/06/19 07:20 Plt Count 320 x1000/uL (130-400) 05/06/19 07:20 MPV 9.7 fL (8.0-11.0) 05/06/19 07:20 Immature Gran % 0.1 05/06/19 07:20 Neutrophils % 60.9 05/06/19 07:20 Lymphocytes % 22.0 05/06/19 07:20 Monocytes % 13.9 05/06/19 07:20 Eosinophils % 2.7 05/06/19 07:20 Basophils % 0.4 05/06/19 07:20 Absolute Neutrophils 4.21 k/cumm (1.2-6.7) 05/06/19 07:20 Absolute Lymphocytes 1.52 k/cumm (1.2-3.4) 05/06/19 07:20 Absolute Monocytes 0.96 k/cumm (0.11-0.7) H 05/06/19 07:20 Absolute Eosinophils 0.19 k/cumm (0.0-0.7) 05/06/19 07:20 Absolute Basophils 0.03 k/cumm (0.0-0.2) 05/06/19 07:20 Sodium 145 mmol/L (136-145) 05/06/19 07:20 Potassium 4.8 mmol/L (3.5-5.1) 05/06/19 07:20 Chloride 112 mmol/L (98-107) H 05/06/19 07:20 Carbon Dioxide 23.2 mmol/L (21.0-32.0) 05/06/19 07:20 Anion Gap 9.8 mmol/L (3-11) 05/06/19 07:20 BUN 55 mg/dL (7-18) H 05/06/19 07:20 Creatinine 2.06 mg/dL (0.55-1.02) H 05/06/19 07:20 Estimated GFR/1.73 m2 23.54 (mL/min/1.73m2) 05/06/19 07:20 Glucose 92 mg/dL (74-106) 05/06/19 07:20 Calcium 9.5 mg/dL (8.5-10.1) 05/06/19 07:20 Magnesium Cancelled 04/30/19 05:35 Urine Color Yellow (Yellow) 05/01/19 13:35 Urine Clarity Cloudy (Clear) 05/01/19 13:35 Urine pH 6.0 (5-8) 05/01/19 13:35 Ur Specific [place] 1.015 (1.005-1.025) 05/01/19 13:35 Urine Protein 100 mg/dL (Negative) H 05/01/19 13:35 Urine Ketones Negative mg/dL (Negative) 05/01/19 13:35 Urine Blood Moderate (Negative) H 05/01/19 13:35 Urine Nitrite Negative (Negative) 05/01/19 13:35 Urine Bilirubin Negative (Negative) 05/01/19 13:35 Urine Urobilinogen 0.2 EU/dL (Up TO 0.2) 05/01/19 13:35 Ur Leukocyte Esterase Large (Negative) H 05/01/19 13:35 Urine RBC >50 HPF (0-2) H 05/01/19 13:35 Urine WBC >50 HPF (0-5) H 05/01/19 13:35 Ur Epithelial Cells Not Applicable 05/01/19 13:35 Urine Crystals Not Applicable 05/01/19 13:35 Urine Bacteria Not Applicable 05/01/19 13:35 Urine Mucus Not Applicable 05/01/19 13:35 Ur Culture Indicated? C&s done as ordered 05/01/19 13:35 Urine Glucose Negative mg/dL (Negative) 05/01/19 13:35
[2019-06-04] MEDS: Acetaminophen Solution 650 MG/20.3 ML CUP PO (09:34)
[2019-06-04] MEDS: LORazepam 2 MG/1 ML Oral Concentrate 0.5 MG PO (15:40)
--- NOTE | 2019-06-04 17:34 | PDOC.CMACT ---
- If Service Date Differs Date of service: 06/04/19 Time of Service: 17:34 Care Management Activity Note S/O: Meghan remains in swing bed status for end of life care she is comfort measures only. Nursing and TEAROOM HOST/HOSTESS's continue to provide her a lot of support. Her son, daughter in law and granddaughter where into visit her last evening. CM continues to provide support to patient and family throughout Meghan's stay. did send email update to Meghan's daughter in [place]. P: Meghan will remain at [facility] for end of life care.
[2019-06-05] MEDS: Patch Removal 1 EACH TP (13:38)
[2019-06-05] MEDS: fentaNYL 12 MCG PATCH TD (13:42)
[2019-06-06] MEDS: fentaNYL 25 MCG PATCH TD (10:58)
[2019-06-06] MEDS: Patch Removal 1 EACH TP (10:59)
--- NOTE | 2019-06-06 15:28 | CHAPLAIN ---
Fr. Lombardi visited Meghan today and gave her the anointing of the sick. He and Fr. Cooper continue to visit on Sunday and Fridays.
[2019-06-07] MEDS: Cholestyramine/Aspartame PKT 1 EACH PO (16:10)
[2019-06-07] MEDS: QUEtiapine 25 MG TAB PO (21:21)
[2019-06-08] MEDS: Citalopram 10 MG TAB PO (08:37)
[2019-06-08] MEDS: QUEtiapine 25 MG TAB PO ×2 (08:37→20:42)
--- NOTE | 2019-06-08 10:00 | PGE_ITS ---
Date of Service Date of service: 06/08/19 Time of Service: 10:00 Assessment and Plan Assessment and plan (1) Comfort measures only status: Start date: 06/08/19 Start time: 10:04 Status: Acute Assessment and plan: Continue to monitor for pain. It does appears as though Meghan is dying. Likely from sepsis. She is cold, allowing to be covered with blankets. Appetite has decreased, she is not eating or drinking as much. She does not appear to be in pain. Recently fentanyl patch increased. Subjective Subjective Patient reports: other Interval history since last seen: BACK END DEVELOPER, decline in eating, drinking. Lying in bed. Appears febrile. Per nursing urine odorous. Allowing blankets to be placed on her which is new behaviour. She is c/o being cold. At this time it appears she is dying. continue to offer support for patient and make her comfortable. Does not appear in pain. Increase in fentynal patch. Exam Narrative Exam Narrative: Elderly female with severe dementia on BACK END DEVELOPER. Appears comfortable lying in bed covered in blankets. Decline in adls. Not eating or drinking much. Objective Objective Clinical Data: Vital Signs Temperature 38.4 C H 05/18/19 18:46 Temperature Source Tympanic 05/06/19 17:04 Pulse 87 05/06/19 17:04 Pulse Rhythm Regular 05/07/19 08:30 Respiratory Rate 17 05/06/19 17:04 Respiratory Effort 06/08/19 00:31 Respiratory Depth Shallow 06/08/19 00:31 Respiratory Pattern Normal 06/07/19 16:12 Blood Pressure 120/63 05/06/19 17:04 Pulse Oximetry 99 05/06/19 17:04 Oxygen Delivery Method Room Air 05/06/19 17:04 Oxygen Flow Rate 0 05/06/19 17:04 Pain Level 5 06/02/19 02:27 Comment 05/07/19 11:31 Intake & Output 06/07/19 06/07/19 06/08/19 11:59 23:59 11:59 Intake Total 200 / 640 440 / 640 240 / 240 Output Total 0 / 0 Balance 200 / 640 440 / 640 240 / 240 Intake: Oral 200 / 640 440 / 640 240 / 240 Output: Urine 0 / 0 Other: Urine Color Yellow Yellow Urine Appearance Cloudy Clear Urine Odor Normal Stool Size Small Moderate Stool Characteristics Soft Soft Liquid Liquid Brown Brown Voiding Methods Incontinent Incontinent Bedside Commode Laboratory Results WBC 6.92 k/cumm (4.4-10.8) 05/06/19 07:20 RBC 3.81 m/cumm (4.00-5.20) L 05/06/19 07:20 Hgb 10.8 g/dL (12.0-15.5) L 05/06/19 07:20 Hct 33.6 % (36.0-46.0) L 05/06/19 07:20 MCV 88.2 fL (80-95) 05/06/19 07:20 MCH 28.3 pg (27.0-33.0) 05/06/19 07:20 MCHC 32.1 g/dL (32.0-36.0) 05/06/19 07:20 RDW 14.3 % (11.7-14.6) 05/06/19 07:20 Plt Count 320 x1000/uL (130-400) 05/06/19 07:20 MPV 9.7 fL (8.0-11.0) 05/06/19 07:20 Immature Gran % 0.1 05/06/19 07:20 Neutrophils % 60.9 05/06/19 07:20 Lymphocytes % 22.0 05/06/19 07:20 Monocytes % 13.9 05/06/19 07:20 Eosinophils % 2.7 05/06/19 07:20 Basophils % 0.4 05/06/19 07:20 Absolute Neutrophils 4.21 k/cumm (1.2-6.7) 05/06/19 07:20 Absolute Lymphocytes 1.52 k/cumm (1.2-3.4) 05/06/19 07:20 Absolute Monocytes 0.96 k/cumm (0.11-0.7) H 05/06/19 07:20 Absolute Eosinophils 0.19 k/cumm (0.0-0.7) 05/06/19 07:20 Absolute Basophils 0.03 k/cumm (0.0-0.2) 05/06/19 07:20 Sodium 145 mmol/L (136-145) 05/06/19 07:20 Potassium 4.8 mmol/L (3.5-5.1) 05/06/19 07:20 Chloride 112 mmol/L (98-107) H 05/06/19 07:20 Carbon Dioxide 23.2 mmol/L (21.0-32.0) 05/06/19 07:20 Anion Gap 9.8 mmol/L (3-11) 05/06/19 07:20 BUN 55 mg/dL (7-18) H 05/06/19 07:20 Creatinine 2.06 mg/dL (0.55-1.02) H 05/06/19 07:20 Estimated GFR/1.73 m2 23.54 (mL/min/1.73m2) 05/06/19 07:20 Glucose 92 mg/dL (74-106) 05/06/19 07:20 Calcium 9.5 mg/dL (8.5-10.1) 05/06/19 07:20 Magnesium Cancelled 04/30/19 05:35 Urine Color Yellow (Yellow) 05/01/19 13:35 Urine Clarity Cloudy (Clear) 05/01/19 13:35 Urine pH 6.0 (5-8) 05/01/19 13:35 Ur Specific [place] 1.015 (1.005-1.025) 05/01/19 13:35 Urine Protein 100 mg/dL (Negative) H 05/01/19 13:35 Urine Ketones Negative mg/dL (Negative) 05/01/19 13:35 Urine Blood Moderate (Negative) H 05/01/19 13:35 Urine Nitrite Negative (Negative) 05/01/19 13:35 Urine Bilirubin Negative (Negative) 05/01/19 13:35 Urine Urobilinogen 0.2 EU/dL (Up TO 0.2) 05/01/19 13:35 Ur Leukocyte Esterase Large (Negative) H 05/01/19 13:35 Urine RBC >50 HPF (0-2) H 05/01/19 13:35 Urine WBC >50 HPF (0-5) H 05/01/19 13:35 Ur Epithelial Cells Not Applicable 05/01/19 13:35 Urine Crystals Not Applicable 05/01/19 13:35 Urine Bacteria Not Applicable 05/01/19 13:35 Urine Mucus Not Applicable 05/01/19 13:35 Ur Culture Indicated? C&s done as ordered 05/01/19 13:35 Urine Glucose Negative mg/dL (Negative) 05/01/19 13:35
[2019-06-09] MEDS: QUEtiapine 25 MG TAB PO (08:29)
[2019-06-09] MEDS: Citalopram 10 MG TAB PO (08:29)
[2019-06-09] MEDS: fentaNYL 25 MCG PATCH TD (09:52)
[2019-06-09] MEDS: Patch Removal 1 EACH TP (10:04)
--- NOTE | 2019-06-09 14:13 | CHAPLAIN ---
Fr. Lombardi was here on and provided anointing of the sick for Meghan. We are lining up comfort care volunteers for her, on and off for the next few days and will see if she is accepting of them.
[2019-06-09] MEDS: Cholestyramine/Aspartame PKT 1 EACH PO (16:46)
[2019-06-10] MEDS: QUEtiapine 25 MG TAB PO ×2 (09:15→20:21)
[2019-06-10] MEDS: Citalopram 10 MG TAB PO (09:15)
[2019-06-10] MEDS: fentaNYL 25 MCG PATCH TD (09:16)
--- NOTE | 2019-06-10 10:20 | W.NUTRFU ---
Date of service: 06/10/19 Time of Service: 10:21 Nutritional Follow up NOTE: Meghan continues to not meet nutrient/fluid needs. On MEDICAL SAFETY DIRECTOR, end of life care. available prn. Time Spent in Nutritional Counseling and Treatment: 0 time spent face to face
--- NOTE | 2019-06-10 18:02 | PDOC.CMACT ---
Care Management Activity Note Meghan was lying in bed, listening to Jazz and Rock and Roll. She reported being cold so CM provided a warm blanket. Meghan was very thankful and stated I love you. CM visited with Meghan, who appeared very tired and struggled to stay awake. She continues to be kept comfortable at this time.
[2019-06-12] MEDS: Acetaminophen 650 MG SUPP PR (13:34)
--- NOTE | 2019-06-12 15:00 | PDOC.CMPRO ---
Care Management Progress Note CM rec'd call from Meghan Adams, Meghan's daughter and DPOA. Meghan reported the following: She spoke with her brother Gael Marin 01/18/71 at 0130 this morning, Gael reported feeling strongly that his mother needed to return to her own home in [place] to pass away, if she is imminently dying per their parent's wishes. Discussion followed, Meghan reports Gael was adamant about retrieving his mother and bringing her home. Meghan reports Gael stated he would be dropping off his son at school this morning, checking in with work and then heading to [place] to [facility]. Meghan Adams is the DPOA and requests that her mother remain at [facility] due to her current condition and care needs. Meghan reported she would like Gael to be permitted to visit their mother and say goodbye. She is agreeable to Gael being given medical information to inform him of her mother's current condition but does not want information about her local family released. Meghan shared concerns around her brother's ability to become escalated, agitated and potential of creating a scene at [facility]. CM assured Meghan that [facility] staff would manage the situation to the best of our ability. Meghan also shared concerns of how her mother may react to her brother, and shared that if Meghan reacts badly, she does want Gael removed from the room as not to agitate Meghan. She continues to want her mother's care to be directed toward comfort. CM discussed with Quality and Risk, who recommended interdepartmental huddle, reported could be utilized if Gael escalated, but that he should be approached as any other son coming to visit his mother, and welcomed to [facility]. CM met with Gloria: Oziel IZAGUIRRE; Sheriff Tamiko RAMIREZ Nancy, ISABELLECC regarding recommended approach and Meghan Adams's concerns. Everyone was in agreement to welcome Gael to visit with his mother, and provide medical overview of her condition and prognosis, as well as briefing him that transporting her back to [place] would be contraindicated due to her current presentation and care needs. is to be notified if Gael presents to [facility]. He is described as a large man, bald, with a loud voice. Recommendation for staff to be attentive during visit and supportive of Gael, and to monitor situation. If further guidance needed, Meghan reports she will be available by phone: P# [phone].
[2019-06-12] MEDS: QUEtiapine 25 MG TAB PO (20:25)
[2019-06-13] MEDS: HYDROmorphone 200 MG in CADD PUMP CASSETTE 1 EACH, Normal Saline 80 ML SC INF (09:38)
[2019-06-13] MEDS: Patch Removal 1 EACH TP (09:55)
--- NOTE | 2019-06-13 12:24 | W.PALPGNOTE ---
Date of service: 06/13/19 Assessment and Plan Assessment and plan (1) Dehydration: Status: Acute Assessment and plan: Taking in very little by mouth. Refusing what is offered her more often than not. Doesn't want oral care. No lopez in place. Incontinent of both feces and urine. Not much output of either. Continue offering oral liquids. She will have some fluid in the pain pump, but not much. (2) Uncontrolled pain: Status: Chronic Assessment and plan: Will change her to hydromorphone SC pump. Not enough body fat to absorb her fentanyl patch. Choosing hydromorphone over morphine due to her CKD. Starting her at 1 mg/hr. On titration protocol. (3) Dying care: Status: Acute Assessment and plan: Care management has been in touch with Meghan's family. I reviewed their notes. No sign of the son who is struggling with his mother's dying. Daughter, in [place], is Meghan's DPOA. Nurses check in on her regularly. She usually has music playing, but not while I was in room today. Nurses will turn it on later. Expect she still has days to weeks left, likely not months. Will ensure she stays comfortable, no matter how long she lives. (4) Comfort measures only status: Status: Acute Assessment and plan: Meghan hates interventions of any kind, even bedside exams. Will try to respect her wishes as much as possible. Has refused lopez in past. Unable to quantify UOP given this. Will continue to keep pain control as a priority for her care. Subjective Subjective Patient reports: still having pain and no bowel movement Interval history since last seen: I was asked to see Meghan by her nurses. They are concerned that her fentanyl patch is no longer working for pain control. She is losing more body fat; she is cachectic. Sheis eating very little. Her eyes are sunken; she has chronic dehydration, usually refusing the fluids she is offered. We discussed changing her over to a subcutaneous opioid pump. Meghan has known kidney disease. I reviewed her labs from earlier on this admission; since 03/13/19, she had multiple lab tests showing creatinine >2, despite having very little muscle mass. She requires hydromorphone rather than morphine, given her CKD. She did not speak to me, though she looked at me during my examination of her. At one point, she pushed my stethoscope away. She did not look agitated, but rather more resigned, very weak, and uncomfortable. Exam Narrative Exam Narrative: Awake, listless with limited vocalizations. Does not follow simple requests such as take a deep breath or squeeze my hand. Not agitated. Very weak. Diminished breath sounds at both bases but no crackles or wheeze. No heart murmur. Bowel sounds are present but soft. No apparent tenderness to light palpation of the abdomen. Extremities are cachectic. Minimal body fat. She has spontaneous movement of all extremities. No obvious skin breakdown; none reported by nurses. She does not appear frightened. Eyes are sunken. Teeth need cleaning, though she refuses. MM are dry. Objective Objective Clinical Data: Vital Signs Temperature 101.1 F H 05/18/19 18:46 Temperature Source Tympanic 05/06/19 17:04 Pulse 87 05/06/19 17:04 Pulse Rhythm Regular 05/07/19 08:30 Respiratory Rate 17 05/06/19 17:04 Respiratory Effort Non-Labored 06/13/19 01:00 Respiratory Depth Normal 06/13/19 01:00 Respiratory Pattern Normal 06/13/19 01:00 Blood Pressure 120/63 05/06/19 17:04 Pulse Oximetry 99 05/06/19 17:04 Oxygen Delivery Method Room Air 05/06/19 17:04 Oxygen Flow Rate 0 05/06/19 17:04 Pain Level 5 06/02/19 02:27 Comment 05/07/19 11:31 Intake & Output 06/12/19 06/13/19 06/13/19 23:59 11:59 23:59 Intake Total 100 / 100 Balance 100 / 100 Intake: Oral 100 / 100 Other: Voiding Methods Incontinent Incontinent Laboratory Results WBC 6.92 k/cumm (4.4-10.8) 05/06/19 07:20 RBC 3.81 m/cumm (4.00-5.20) L 05/06/19 07:20 Hgb 10.8 g/dL (12.0-15.5) L 05/06/19 07:20 Hct 33.6 % (36.0-46.0) L 05/06/19 07:20 MCV 88.2 fL (80-95) 05/06/19 07:20 MCH 28.3 pg (27.0-33.0) 05/06/19 07:20 MCHC 32.1 g/dL (32.0-36.0) 05/06/19 07:20 RDW 14.3 % (11.7-14.6) 05/06/19 07:20 Plt Count 320 x1000/uL (130-400) 05/06/19 07:20 MPV 9.7 fL (8.0-11.0) 05/06/19 07:20 Immature Gran % 0.1 05/06/19 07:20 Neutrophils % 60.9 05/06/19 07:20 Lymphocytes % 22.0 05/06/19 07:20 Monocytes % 13.9 05/06/19 07:20 Eosinophils % 2.7 05/06/19 07:20 Basophils % 0.4 05/06/19 07:20 Absolute Neutrophils 4.21 k/cumm (1.2-6.7) 05/06/19 07:20 Absolute Lymphocytes 1.52 k/cumm (1.2-3.4) 05/06/19 07:20 Absolute Monocytes 0.96 k/cumm (0.11-0.7) H 05/06/19 07:20 Absolute Eosinophils 0.19 k/cumm (0.0-0.7) 05/06/19 07:20 Absolute Basophils 0.03 k/cumm (0.0-0.2) 05/06/19 07:20 Sodium 145 mmol/L (136-145) 05/06/19 07:20 Potassium 4.8 mmol/L (3.5-5.1) 05/06/19 07:20 Chloride 112 mmol/L (98-107) H 05/06/19 07:20 Carbon Dioxide 23.2 mmol/L (21.0-32.0) 05/06/19 07:20 Anion Gap 9.8 mmol/L (3-11) 05/06/19 07:20 BUN 55 mg/dL (7-18) H 05/06/19 07:20 Creatinine 2.06 mg/dL (0.55-1.02) H 05/06/19 07:20 Estimated GFR/1.73 m2 23.54 (mL/min/1.73m2) 05/06/19 07:20 Glucose 92 mg/dL (74-106) 05/06/19 07:20 Calcium 9.5 mg/dL (8.5-10.1) 05/06/19 07:20 Magnesium Cancelled 04/30/19 05:35 Urine Color Yellow (Yellow) 05/01/19 13:35 Urine Clarity Cloudy (Clear) 05/01/19 13:35 Urine pH 6.0 (5-8) 05/01/19 13:35 Ur Specific [place] 1.015 (1.005-1.025) 05/01/19 13:35 Urine Protein 100 mg/dL (Negative) H 05/01/19 13:35 Urine Ketones Negative mg/dL (Negative) 05/01/19 13:35 Urine Blood Moderate (Negative) H 05/01/19 13:35 Urine Nitrite Negative (Negative) 05/01/19 13:35 Urine Bilirubin Negative (Negative) 05/01/19 13:35 Urine Urobilinogen 0.2 EU/dL (Up TO 0.2) 05/01/19 13:35 Ur Leukocyte Esterase Large (Negative) H 05/01/19 13:35 Urine RBC >50 HPF (0-2) H 05/01/19 13:35 Urine WBC >50 HPF (0-5) H 05/01/19 13:35 Ur Epithelial Cells Not Applicable 05/01/19 13:35 Urine Crystals Not Applicable 05/01/19 13:35 Urine Bacteria Not Applicable 05/01/19 13:35 Urine Mucus Not Applicable 05/01/19 13:35 Ur Culture Indicated? C&s done as ordered 05/01/19 13:35 Urine Glucose Negative mg/dL (Negative) 05/01/19 13:35
[2019-06-13] MEDS: Refresh PLUS Eye Drops 0.4ml 2 EACH OU ×3 (14:59→22:29)
[2019-06-13 15:00] VITALS: RESP 6
--- NOTE | 2019-06-13 16:46 | CHAPLAIN ---
Meghan has been unresponsive today, with up to 8 seconds gaps between breaths while I was with her this afternoon. Her son Param was here with his Amena Escobedo (an [employer] employee) and their two kids. Param shared stories about his mom and this childhood in [facility] and then [place]. I said a prayer with Meghan and her family. Param asked that we also pray for his brother, Gael, who will be on his way tomorrow morning to visit and has been threatening toward Param and their sister Meghan who lives in [place]. Meghan is [employer] and has been visited on a regular basis by Fr. Cooper and Fr. Lombardi. She received anointing of the sick from Fr. Lombardi last week.
--- NOTE | 2019-06-13 16:48 | CMPROGNOTE_ITS ---
- If Service Date Differs Date of service: 06/13/19 Time of Service: 16:48 Care Management Progress Note S/O: CM into meet with patient and her son Param and family in the room. Meghan appears to be actively dying. Her son Gael will leave his home on Sunday to come to the hospital please see previous CM note. Meghan has a burial plot and coordinated arrangements in [place], she will need to be brought to the [facility] when she passes until the family can arrange transport back to [place]. Meghan's daughter Meghan is making the arrangements from [facility]. P: Meghan will continue end of life care here at [facility].
--- NOTE | 2019-06-13 21:35 | NUR.NOTE ---
Nursing Note:patients son and daughter in law took belongings including earrings
[2019-06-14] MEDS: LORazepam 2 MG/1 ML Oral Concentrate 0.5 MG PO (08:35)
[2019-06-14] MEDS: LORazepam 2 MG/ML VIAL 1 MG IM (08:43)
[2019-06-14] MEDS: LORazepam 2 MG/ML VIAL 1 MG SC ×3 (17:40→23:30)
[2019-06-15] MEDS: LORazepam 2 MG/ML VIAL 1 MG SC ×4 (02:11→07:53)
[2019-06-15] MEDS: Acetaminophen 650 MG SUPP PR (15:37)
== END 2019-06-15 22:40 | disposition expired | DRG 696 ==
PROVIDERS: Family Medicine; Admitting Provider Internal Medicine; PCP Family Medicine; Visit Provider Internal Medicine
DX: R33.9 Retention of urine, unspecified (principal); F01.51 Vascular dementia, unspecified severity, with behavioral disturbance; N39.0 Urinary tract infection, site not specified; Z16.11 Resistance to penicillins; R64 Cachexia; Z68.1 Body mass index [BMI] 19.9 or less, adult; Z51.5 Encounter for palliative care; N18.9 Chronic kidney disease, unspecified; E86.0 Dehydration; R45.1 Restlessness and agitation; R23.4 Changes in skin texture; E03.9 Hypothyroidism, unspecified; D50.9 Iron deficiency anemia, unspecified; Z66 Do not resuscitate; Z90.710 Acquired absence of both cervix and uterus; Z90.722 Acquired absence of ovaries, bilateral; R19.7 Diarrhea, unspecified; Z90.49 Acquired absence of other specified parts of digestive tract; Z85.038 Personal history of other malignant neoplasm of large intestine; B96.1 Klebsiella pneumoniae [K. pneumoniae] as the cause of diseases classified elsewhere; L89.891 Pressure ulcer of other site, stage 1
CPT/HCPCS: 36415; 80048; 85027; 87077; 99233; 99252; 99254; 99304; 99305; 99308; 99309; 81003; 81015; 83735; 85025; 87086; 87186; 87324; J1170; J2060; J3475; J3490